=== PATIENT | male | born 1955 | race Two or more races ===

== ENCOUNTER 2016-08-24 11:52 | Emergency (ER) | payer BC ==
[~2016-08-24] VITALS: Ht 167.6 cm; Wt 90.7 kg
[2016-08-24 12:30] VITALS: BP 127/82
[2016-08-24 13:51] LABS: Basophils # (auto) 0 uL; Basophils % (auto) 0.4 % (0.0-2.0); DEFINITIVE VIEW TRANSMISSION; Eosinophils # (auto) 0.1 uL; Eosinophils % (auto) 1.3 % (0.0-7.0); Hematocrit 51.8 % (41.0-53.0); Hemoglobin 17.1 g/dL (13.5-17.5); Lymphocytes # (auto) 1.6 uL; Lymphocytes % (auto) 13.8 % (10.0-50.0); Mean Corpuscular Hemoglobin 26.9 pg (28.0-32.0); Mean Corpuscular Hgb Conc. 32.9 g/dL (32.0-36.0); Mean Corpuscular Volume 81.5 fL (80.0-100.0); Mean Platelet Volume 7.8 fL (7.4-10.4); Monocytes # (auto) 0.4 uL; Neutrophils % (auto) 80.5 % (37.0-80.0); Platelet Count (auto) 431 10^3/uL (140-450); Red Cell Distribution Width 14.1 % (11.6-16.0); White Blood Cell 11.2 10^3/uL (4.4-10.8)
[2016-08-24 14:20] LABS: Albumin 4.1 g/dL (3.4-5.0); BUN/Creatinine Ratio 18.2; Bilirubin, Total 0.6 mg/dL (0.2-1.0); Calcium 8.8 mg/dL (8.5-10.1); Potassium 3.7 mmol/L (3.5-5.1); Total Protein 8.7 g/dL (6.4-8.2)
== END 2016-08-24 14:23 | disposition left against medical advice (07) ==
LOC: ER 11:56
DX: R19.7 Diarrhea, unspecified (principal); R11.10 Vomiting, unspecified; Z53.21 Procedure and treatment not carried out due to patient leaving prior to being seen by health care provider
CPT/HCPCS: 36415; 80053; 82962; 85025; 93005; 99281; J7030

== ENCOUNTER 2019-04-23 22:21 | Inpatient (IN) | payer SELFPAY ==
[~2019-04-23] VITALS: Ht 167.6 cm; Wt 101.0 kg
[2019-04-23 23:18] LABS: Hematocrit 45.7 % (41.0-53.0); Hemoglobin 14.9 g/dL (13.5-17.5); Mean Corpuscular Hemoglobin 27.4 pg (28.0-32.0); Mean Corpuscular Hgb Conc. 32.7 g/dL (32.0-36.0); Mean Corpuscular Volume 83.8 fL (80.0-100.0); Platelet Count (auto) 227 10^3/uL (140-450); Red Blood Cells 5.46 10^6/uL (4.5-5.90); Red Cell Distribution Width 14.5 % (11.8-14.3)
[2019-04-23 23:26] LABS: Basophils % (manual) 0 (0.0-2.0); Blast Cells 0; Eosinophils % (manual) 0 (0-7); Metamyelocytes % 0; Myelocytes % 0; Promyelocytes % 0; Reactive Lymphocytes 0
[2019-04-23] MEDS ORDERED: InsuLIN REG 1unit/0.01ml Soln (100units/ml) IV ONE (23:30)
[2019-04-23] MEDS ORDERED: SODIUM CHLORIDE 0.9% 2,000 ML IV ONE (23:30)
[2019-04-23 23:35] LABS: Chloride 83 mmol/L (98-107); Potassium 4.3 mmol/L (3.5-5.1)
[2019-04-23 23:49] LABS: Alanine Aminotransferase 24 U/L (16-61); Albumin 2.2 g/dL (3.4-5.0); Alkaline Phosphatase 192 U/L (45-117); Aspartate Aminotransferase 30 U/L (15-37); Bilirubin, Total 0.6 mg/dL (0.2-1.0); Blood Urea Nitrogen 62 mg/dL (7-18); GFR African American 52 mL/min; GFR Non-African American 43 mL/min; Magnesium 2.4 mg/dL (1.6-2.6); Total Protein 6.5 g/dL (6.4-8.2)
[2019-04-23 23:54] LABS: Anion Gap 28 (5-15)
[2019-04-23 23:56] LABS: Carbon Dioxide 8 mmol/L (21-32); Glucose 543 mg/dL (74-106); Sodium 119 mmol/L (136-145)
[2019-04-24 00:09] LABS: Lactic Acid w/Reflex 2.3 mmol/L (0.4-2.0)
[2019-04-24] MEDS ORDERED: InsuLIN R (HUMAN) 100 UNITS in SODIUM CHL 0.9% 99 ML IV SCH ×2 (00:10→02:09)
[2019-04-24 00:11] LABS: Band Neutrophils % (manual) 41; Lymphocytes % (manual) 4 (10.0-50.0); Monocytes % (manual) 8 (0-12)
[2019-04-24] MEDS ORDERED: SODIUM BICARBONATE 8.4% INJ 50ML SYRINGE ONE (00:15)
[2019-04-24] MEDS ORDERED: DEXTROSE (50%) 50ML SYRG IV PRN ×3 (00:15→21:45)
[2019-04-24] MEDS ORDERED: SODIUM BICARBONATE 8.4 % INJ 50ML VIAL IV ONE ×2 (00:15→21:30)
[2019-04-24] MEDS ORDERED: InsuLIN REG 1unit/0.01ml Soln (100units/ml) ONE (00:25)
[2019-04-24] MEDS: SODIUM CHLORIDE 0.9% 1,000 ML IV SCH ×2 (00:34→02:10)
[2019-04-24] MEDS: ACCU-CHEK COMFORT CURVE STRIP VI SCH ×16 (00:39→23:20)
[2019-04-24] MEDS ORDERED: LEVOFLOXACIN 750MG 150 ML IV ONE (01:00)
[2019-04-24] MEDS ORDERED: SODIUM CHLORIDE 0.9% 1,000 ML IV SCH ×5 (02:09→08:09)
[2019-04-24] MEDS ORDERED: ALUM & MAG HYDROX-SIMETH LIQ(MAALOX) 30 ML PO PRN (02:15)
[2019-04-24] MEDS ORDERED: TEMAZEPAM 15 MG CAP PO PRN (02:15)
[2019-04-24] MEDS ORDERED: NITROGLYCERIN 0.4 MG SL TAB SL PRN (02:15)
[2019-04-24] MEDS ORDERED: MORPHINE SULF INJ 2 MG/ML SYRINGE 1ML IV PRN (02:15)
[2019-04-24] MEDS ORDERED: DOCUSATE SOD 100 MG CAP PO PRN (02:15)
[2019-04-24] MEDS ORDERED: MORPHINE SULFATE 4 MG/ML SYR/VIAL IV PRN (02:15)
[2019-04-24] MEDS ORDERED: CEFTRIAXONE SODIUM 2 GM in D5W 5% 50 ML IV ONE (02:30)
[2019-04-24] MEDS ORDERED: cefTRIAXone 1GM/50ML D5W 100 ML IV ONE (03:01)
[2019-04-24 03:30] LABS: Basophils # (auto) 0 uL; Basophils % (auto) 0.2 % (0.0-2.0); Eosinophils # (auto) 0.2 uL; Eosinophils % (auto) 1.6 % (0.0-7.0); Hematocrit 42.5 % (41.0-53.0); Hemoglobin 14.6 g/dL (13.5-17.5); Lymphocytes # (auto) 0.3 uL; Lymphocytes % (auto) 2.9 % (10.0-50.0); Mean Corpuscular Hemoglobin 27.6 pg (28.0-32.0); Mean Corpuscular Hgb Conc. 34.2 g/dL (32.0-36.0); Mean Corpuscular Volume 80.5 fL (80.0-100.0); Monocytes # (auto) 0.3 uL; Monocytes % (auto) 2.7 % (0.0-12.0); Neutrophils % (auto) 92.6 % (37.0-80.0); Nucleated Red Blood Cells % 0.3 %; Platelet Count (auto) 174 10^3/uL (140-450); Red Blood Cells 5.28 10^6/uL (4.5-5.90); Red Cell Distribution Width 14.2 % (11.8-14.3); White Blood Cell 9.7 10^3/uL (4.4-10.8)
[2019-04-24 03:31] LABS: BUN/Creatinine Ratio 43.4; Calcium 6.9 mg/dL (8.5-10.1); Magnesium 2.2 mg/dL (1.6-2.6); Phosphorus 2.7 mg/dL (2.5-4.90)
[2019-04-24 03:36] LABS: Potassium 2.9 mmol/L (3.5-5.1)
[2019-04-24] MEDS ORDERED: SOD CHL 0.9%/ KCL 40MEQ 1,000 ML IV SCH (04:00)
[2019-04-24] MEDS ORDERED: POTASSIUM CHLORIDE 20 MEQ, LIDOCAINE 1% (LOCAL ANESTH.) 2 ML in SODIUM CHL 0.9% 100 ML IV ONE (04:00)
[2019-04-24] MEDS: ONDANSETRON HCL 4 MG/2 ML VIAL IV PRN ×2 (04:01→09:31)
[2019-04-24] MEDS ORDERED: POTASSIUM CHL 20MEQ/100ML 100 ML IV ONE ×2 (04:30→23:45)
[2019-04-24 04:44] LABS: Urine Amorphous Crystal FEW /hpf (None Seen); Urine Bacteria FEW /hpf (None Seen); Urine Blood 2+ /uL (Negative); Urine Hyaline Cast FEW /lpf (0 - 2); Urine Mucus FEW (None Seen); Urine Specific Gravity 1.019 (1.001-1.035); Urine WBC 2 /hpf (0 - 3)
[2019-04-24] MEDS ORDERED: SOD CHL 0.9%/ KCL 40MEQ 1,000 ML IV ONE (05:00)
[2019-04-24] MEDS ORDERED: SODIUM CHLORIDE 0.9% 1,000 ML IV ONE ×2 (06:00→08:15)
[2019-04-24 08:27] LABS: Hematocrit 39.2 % (41.0-53.0); Hemoglobin 13.4 g/dL (13.5-17.5); Mean Corpuscular Hemoglobin 27.7 pg (28.0-32.0); Mean Corpuscular Hgb Conc. 34.1 g/dL (32.0-36.0); Mean Corpuscular Volume 81.1 fL (80.0-100.0); Platelet Count (auto) 139 10^3/uL (140-450); Red Blood Cells 4.84 10^6/uL (4.5-5.90); Red Cell Distribution Width 14.2 % (11.8-14.3); White Blood Cell 7.3 10^3/uL (4.4-10.8)
[2019-04-24 08:31] LABS: Basophils % (manual) 0 (0.0-2.0); Blast Cells 0; Eosinophils % (manual) 0 (0-7); Metamyelocytes % 0; Myelocytes % 0; Promyelocytes % 0; Reactive Lymphocytes 0
[2019-04-24 08:42] LABS: BUN/Creatinine Ratio 41.3; Calcium 6.4 mg/dL (8.5-10.1)
[2019-04-24 08:44] LABS: Potassium 2.8 mmol/L (3.5-5.1)
[2019-04-24 08:45] LABS: Lactic Acid w/Reflex 2.8 mmol/L (0.4-2.0)
[2019-04-24 08:50] LABS: Band Neutrophils % (manual) 33; Lymphocytes % (manual) 3 (10.0-50.0); Monocytes % (manual) 9 (0-12)
[2019-04-24] MEDS ORDERED: POTASSIUM EFFERVESENT TAB 25 MEQ GT ONE (09:00)
[2019-04-24] MEDS ORDERED: POTASSIUM PHOSPHATE 44 MEQ in D5W 5% 250 ML IV ONE (09:30)
[2019-04-24] MEDS ORDERED: ENOXAPARIN SOD 40 MG/0.4 ML SYRINGE SC SCH (10:00)
[2019-04-24] MEDS: ENOXAPARIN SOD 40 MG/0.4 ML SYRINGE SC SCH (10:09)
[2019-04-24 10:21] LABS: Alcohol, Urine < 3.0 mg/dL (0-5); Amphetamine Screen, Urine NEGATIVE (NEGATIVE); Barbiturate Scree,Urine NEGATIVE (NEGATIVE); Benzodiazephine Screen, Urine NEGATIVE (NEGATIVE); Cannabinoid Screen, Urine NEGATIVE (NEGATIVE); Cocaine Screen, Urine NEGATIVE (NEGATIVE); Opiate Scree,Urine NEGATIVE (NEGATIVE); Phencyclidine Screen, Urine NEGATIVE (NEGATIVE)
[2019-04-24] MEDS ORDERED: SODIUM CHLORIDE 0.9% 500 ML IV ONE (10:45)
[2019-04-24] MEDS ORDERED: ALBUMIN 25% 100 ML IV ONE (10:45)
[2019-04-24] MEDS ORDERED: VANCOMYCIN PER PHARMACY 0 MG IV SCH (10:45)
[2019-04-24] MEDS: VANCOMYCIN 1GM/250ML 250 ML IV SCH (12:27)
[2019-04-24] MEDS ORDERED: NOREPINEPHRINE 8 MG/250ML KIT 250 ML IV SCH (12:44)
[2019-04-24] MEDS: SOD CHL 0.9%/ KCL 20MEQ 1,000 ML IV SCH ×2 (12:56→18:53)
[2019-04-24] MEDS: PIPERACILLIN-TAZOB 3.375GM 100 ML IV SCH ×2 (14:07→18:15)
[2019-04-24] MEDS ORDERED: FUROSEMIDE 40 MG/4 ML VIAL IV ONE (16:15)
[2019-04-24 16:23] VITALS: BP 129/56
[2019-04-24] MEDS: ALBUTEROL SULF 2.5 MG/0.5ML(0.5%) NEB SOLN NEB SCH ×2 (17:45→22:04)
[2019-04-24] MEDS: IPRATROPIUM BROM 0.5 MG/2.5ML INH SOL NEB SCH ×2 (17:45→22:04)
[2019-04-24 19:00] VITALS: BP 97/56
--- NOTE | 2019-04-24 19:45 | NUR ---
RECEIVED REPORT AND ASSUMED CARE; SEE INTERVENTIONS FOR ASSESSMENT; SEE IV SPREADSHEET FOR GTTS; VS ARE WNL; PT. IS VERY ANXIOUS AND RESTLESS- FAMILY STATES HE IS THIS WAY AT HOME; WILL CONT. TO MONITOR.
[2019-04-24 20:00] VITALS: BP 122/73
--- NOTE | 2019-04-24 20:13 | NUR ---
Respiratory note: ABG RESULTS REPORTED TO CLARIBEL RUBY, NO NEW RESPIRATORY ORDERS GIVEN AT THIS TIME.
[2019-04-24 21:00] VITALS: BP 107/64
--- NOTE | 2019-04-24 21:00 | NUR ---
PARTIAL LINEN CHANGE; PT. CONT. WITH RESTLESSNESS; WILL MONITOR PT.
[2019-04-24] MEDS: InsuLIN R (HUMAN) 100 UNITS in SODIUM CHL 0.9% 99 ML IV SCH (21:29)
[2019-04-24 21:48] LABS: Hematocrit 36.5 % (41.0-53.0); Hemoglobin 12.5 g/dL (13.5-17.5); Mean Corpuscular Hemoglobin 27.6 pg (28.0-32.0); Mean Corpuscular Hgb Conc. 34.3 g/dL (32.0-36.0); Mean Corpuscular Volume 80.5 fL (80.0-100.0); Platelet Count (auto) 119 10^3/uL (140-450); Red Blood Cells 4.53 10^6/uL (4.5-5.90); Red Cell Distribution Width 14.6 % (11.8-14.3); White Blood Cell 14.5 10^3/uL (4.4-10.8)
[2019-04-24] MEDS: FAMOTIDINE (10MG/ML) 2ML VL IV SCH (21:49)
[2019-04-24 21:59] LABS: Basophils % (manual) 0 (0.0-2.0); Blast Cells 0; Eosinophils % (manual) 0 (0-7); Metamyelocytes % 0; Myelocytes % 0; Promyelocytes % 0; Reactive Lymphocytes 0
[2019-04-24 22:00] VITALS: BP 102/54
[2019-04-24 22:00] LABS: Albumin 2.1 g/dL (3.4-5.0); Anion Gap 16 (5-15); Calcium 6.9 mg/dL (8.5-10.1); Carbon Dioxide 15 mmol/L (21-32); Chloride 103 mmol/L (98-107); Glucose 213 mg/dL (74-106); Potassium 3.3 mmol/L (3.5-5.1); Sodium 134 mmol/L (136-145)
[2019-04-24 22:02] LABS: Lactic Acid w/Reflex 2.2 mmol/L (0.4-2.0)
[2019-04-24 22:05] LABS: Alanine Aminotransferase 24 U/L (16-61); BUN/Creatinine Ratio 33.7; Bilirubin, Total 0.6 mg/dL (0.2-1.0); Blood Urea Nitrogen 35 mg/dL (7-18); GFR African American 92 mL/min; GFR Non-African American 76 mL/min; Total Protein 5.7 g/dL (6.4-8.2)
[2019-04-24 22:12] LABS: Alkaline Phosphatase 155 U/L (45-117); Aspartate Aminotransferase 45 U/L (15-37)
--- NOTE | 2019-04-24 22:34 | NUR ---
Respiratory note: TAILERCPA ARIAS NOTIFIED OF ABG RESULTS, NO NEW RESPIRATORY ORDERS GIVEN AT THIS TIME. WILL CONTINUE TO MONITOR.
[2019-04-24 23:00] VITALS: BP 114/54
[2019-04-24 23:39] LABS: Band Neutrophils % (manual) 8; Lymphocytes % (manual) 3 (10.0-50.0); Monocytes % (manual) 5 (0-12)
[2019-04-25] VITALS (9 sets, daily range): BP systolic 103–126; BP diastolic 61–81
[2019-04-25] MEDS: ACCU-CHEK COMFORT CURVE STRIP VI SCH ×9 (00:20→22:51)
[2019-04-25] MEDS: InsuLIN R (HUMAN) 100 UNITS in SODIUM CHL 0.9% 99 ML IV SCH (00:21)
[2019-04-25] MEDS: MORPHINE SULF INJ 2 MG/ML SYRINGE 1ML IV PRN ×3 (01:11→16:00)
[2019-04-25] MEDS: PIPERACILLIN-TAZOB 3.375GM 100 ML IV SCH ×2 (01:15→06:38)
[2019-04-25] MEDS: ONDANSETRON HCL 4 MG/2 ML VIAL IV PRN (01:40)
[2019-04-25] MEDS: ALBUTEROL SULF 2.5 MG/0.5ML(0.5%) NEB SOLN NEB SCH ×4 (02:06→18:51)
[2019-04-25] MEDS: IPRATROPIUM BROM 0.5 MG/2.5ML INH SOL NEB SCH ×4 (02:06→18:51)
--- NOTE | 2019-04-25 03:00 | NUR ---
PT. PULLED OUT PIV FROM LT. HAND-CATHETER INTACT; CHANGED ALL LINEN; PT. TOLERATED WELL; PT. AGGRESSIVE AND WANTING TO BE DISCHARGED HOME; RE-ASSURED PT. TO WHY HE WAS HERE AND PT. SEEMS TO BE A LITTLE MORE CALM; WILL CONT. TO MONITOR.
[2019-04-25 06:26] LABS: Hematocrit 34.3 % (41.0-53.0); Hemoglobin 11.8 g/dL (13.5-17.5); Mean Corpuscular Hemoglobin 27.5 pg (28.0-32.0); Mean Corpuscular Hgb Conc. 34.3 g/dL (32.0-36.0); Mean Corpuscular Volume 80.2 fL (80.0-100.0); Platelet Count (auto) 92 10^3/uL (140-450); Red Blood Cells 4.28 10^6/uL (4.5-5.90); Red Cell Distribution Width 14.7 % (11.8-14.3); White Blood Cell 12.1 10^3/uL (4.4-10.8)
[2019-04-25 06:27] LABS: Basophils % (manual) 0 (0.0-2.0); Blast Cells 0; Eosinophils % (manual) 0 (0-7); Metamyelocytes % 0; Myelocytes % 0; Promyelocytes % 0; Reactive Lymphocytes 0
[2019-04-25 06:43] LABS: INR 1.04 (0.9-1.15)
[2019-04-25 07:04] LABS: Albumin 1.8 g/dL (3.4-5.0); BUN/Creatinine Ratio 36.1; Calcium 6.8 mg/dL (8.5-10.1); Magnesium 1.9 mg/dL (1.6-2.6)
[2019-04-25 07:08] LABS: Bilirubin, Total 0.6 mg/dL (0.2-1.0); Phosphorus 2.3 mg/dL (2.5-4.90); Total Protein 5.4 g/dL (6.4-8.2)
[2019-04-25 07:10] LABS: Potassium 2.8 mmol/L (3.5-5.1)
[2019-04-25] MEDS: SOD CHL 0.9%/ KCL 20MEQ 1,000 ML IV SCH ×2 (07:37→08:14)
[2019-04-25 07:45] LABS: Band Neutrophils % (manual) 18; Lymphocytes % (manual) 4 (10.0-50.0); Monocytes % (manual) 12 (0-12)
[2019-04-25] MEDS ORDERED: POTASSIUM CHL 20 Meq TABLET PO ONE ×2 (07:45→09:00)
[2019-04-25] MEDS ORDERED: DEXTROSE (50%) 50ML SYRG IV PRN ×2 (07:45→09:00)
[2019-04-25] MEDS ORDERED: ACCU-CHEK COMFORT CURVE STRIP VI SCH (08:00)
[2019-04-25] MEDS ORDERED: InsuLIN REG 1unit/0.01ml Soln (100units/ml) SC SCH (08:00)
--- NOTE | 2019-04-25 08:36 | NUR ---
Report Received Received report from Emergency Department Nurse.
[2019-04-25] MEDS ORDERED: INSULIN LANTUS (GLARGINE) 1 /0.01ml (100units/ml) SC ONE ×2 (09:00→10:00)
[2019-04-25] MEDS ORDERED: POTASSIUM PHOSPHATE 44 MEQ in D5W 5% 250 ML IV ONE (09:00)
--- NOTE | 2019-04-25 09:01 | NUR ---
MS admit from ER BLAZE BAILEY admitted to tele after SBAR received. Patient oriented to CATHI MANLEY, RN primary RN,Room 278 Bed B, and unit policies regarding patient care and visiting hours. Patient Alert and orientedx4, bed in lowest position, call lights in place, patient informed on plan of care and verbalizes understanding.
[2019-04-25] MEDS: ENOXAPARIN SOD 40 MG/0.4 ML SYRINGE SC SCH (10:14)
[2019-04-25] MEDS: FAMOTIDINE (10MG/ML) 2ML VL IV SCH ×2 (10:14→22:50)
[2019-04-25] MEDS ORDERED: LEVOFLOXACIN 500MG 100 ML IV ONE (10:45)
[2019-04-25] MEDS: InsuLIN REG 1unit/0.01ml Soln (100units/ml) SC SCH ×3 (11:52→22:51)
[2019-04-25] MEDS: VANCOMYCIN 1GM/250ML 250 ML IV SCH ×3 (12:00→23:13)
--- NOTE | 2019-04-25 12:10 | NUR ---
WOUND CARE NOTE: Wound care consult received from Dr Perez for diabetic foot ulcer. Patient is a 63yo male admitted for DKA. Patient with a history of diabetes. Patient is alert and denies pain. Patient seen with bedside RNAmelie. Reviewed photographs taken on admission. Patient states he has had wound for approximately 2 weeks. Patient is pending a podiatry consult with Dr Jerome. Patient with a open calloused blister measuring 2x2cm with purulent drainage. Culture taken. RECOMMENDATIONS: Dietary Consult; Podiatry consult; Nursing to cleanse wound with NS, pat dry, cover with telfa gauze and secure with tape, change daily/PRN; further wound care orders to be directed by podiatry; wound care team to follow. Addendum: 04/25/19 at 1807 by DEXTER CARLOS RN Amended: Links added.
--- NOTE | 2019-04-25 13:00 | NUR ---
Home medications Spoke with son. Daughter is to bring in a list of home medications.
--- NOTE | 2019-04-25 13:31 | NUR ---
at bedside Dr. Jerome at bedside.
--- NOTE | 2019-04-25 13:35 | NUR ---
Debridement Dr. Jerome is at bedside performing debridement on patient's right great toe.
--- NOTE | 2019-04-25 16:06 | NUR ---
Home Medications Daughter does not have home medication list. Patient states it it in his wallet, however, daughter has the wallet and the list is not there.
[2019-04-25] MEDS ORDERED: AZIL40TA2 PO (16:31)
[2019-04-25] MEDS ORDERED: ERTU15TA PO (16:31)
[2019-04-25] MEDS ORDERED: METF500T PO (16:38)
[2019-04-25] MEDS ORDERED: PIO30T PO (16:38)
[2019-04-25] MEDS ORDERED: ATOR20TA PO (16:38)
--- NOTE | 2019-04-25 16:41 | NUR ---
Home Medications Daughter called patient's dr. office. Medications updated.
--- NOTE | 2019-04-25 16:59 | NUR ---
Call to [employer] Operator Call to Charan orthopedic podiatrist, at this time regarding order for patient's order for surgical shoe. Charan states that the surgical shoe is available through materials.
--- NOTE | 2019-04-25 17:01 | NUR ---
Call to Materials Surgical shoe will be delivered.
--- NOTE | 2019-04-25 18:29 | NUR ---
Surgical Shoe Applied surgical shoe at this time. No distress noted.
--- NOTE | 2019-04-25 18:37 | NUR ---
Daughter's Information Charlene
--- NOTE | 2019-04-25 19:15 | NUR ---
Closing Shift Note Patient resting in bed. Daughter at bedside. Sitter at bedside. Report given. Will endorse care to the night stocker RN.
--- NOTE | 2019-04-25 19:35 | NUR ---
Opening Shift Note Assumed care of patient. Patient was asleep but arousible to name. Family is present at bedside. No S/S of distress/SOB or pain. Instructed on POC and to call for assist PRN, will continue to monitor for changes Q1hr and PRN.
[2019-04-25] MEDS: INSULIN LANTUS (GLARGINE) 1 /0.01ml (100units/ml) SC SCH (22:51)
[2019-04-26] MEDS: IPRATROPIUM BROM 0.5 MG/2.5ML INH SOL NEB SCH ×3 (00:21→11:33)
[2019-04-26] MEDS: ALBUTEROL SULF 2.5 MG/0.5ML(0.5%) NEB SOLN NEB SCH ×3 (00:21→11:33)
[2019-04-26] MEDS: MORPHINE SULF INJ 2 MG/ML SYRINGE 1ML IV PRN ×3 (01:54→18:00)
[2019-04-26 05:00] VITALS: BP 138/80
--- NOTE | 2019-04-26 05:15 | NUR ---
WOUND CARE NOTE Wound was cleaned and dressing was changed per wound care instructions. Minimal drainage observed. Patient tolerated dressing change well.
[2019-04-26 06:32] LABS: Hematocrit 35.4 % (41.0-53.0); Hemoglobin 12.3 g/dL (13.5-17.5); Mean Corpuscular Hgb Conc. 34.7 g/dL (32.0-36.0); Mean Corpuscular Volume 80.6 fL (80.0-100.0); Platelet Count (auto) 86 10^3/uL (140-450); Red Cell Distribution Width 14.8 % (11.8-14.3); White Blood Cell 10.2 10^3/uL (4.4-10.8)
[2019-04-26 06:43] LABS: BUN/Creatinine Ratio 33.9; Calcium 7.5 mg/dL (8.5-10.1); Potassium 3.3 mmol/L (3.5-5.1)
[2019-04-26 06:44] LABS: Basophils % (manual) 0 (0.0-2.0); Blast Cells 0; Eosinophils % (manual) 0 (0-7); Metamyelocytes % 0; Myelocytes % 0; Promyelocytes % 0; Reactive Lymphocytes 0
[2019-04-26] MEDS: ACCU-CHEK COMFORT CURVE STRIP VI SCH ×4 (07:00→22:23)
[2019-04-26] MEDS: InsuLIN REG 1unit/0.01ml Soln (100units/ml) SC SCH ×4 (07:00→22:23)
--- NOTE | 2019-04-26 07:21 | NUR ---
CLOSING NOTE Care has been endorse to Day shift RN.
--- NOTE | 2019-04-26 07:30 | NUR ---
Opening Shift Note Assuming care of patient at this time. Patient is awake and alert, with periods of confusion. Patient states he is uncomfortable in bed. Bed is locked and lowered with side rails up x2. Patient shows no signs or symptoms of shortness of breath. Instructed patient on the plan of care for today and to call for assistance as needed. Call light within reach. Sitter at bedside for safety.
[2019-04-26 07:31] LABS: Band Neutrophils % (manual) 7; Lymphocytes % (manual) 9 (10.0-50.0); Monocytes % (manual) 6 (0-12)
--- NOTE | 2019-04-26 08:02 | NUR ---
Call to Daughter Call to Daughter at this time. Patient wants her to come pick her up. Patient wants to sign out AMA. Daughter states, "He is not leaving until the doctor sees him and discharges him. " Daughter continues to state that she will stop by after she drops her son off at school. Notified patient.
[2019-04-26 09:00] VITALS: BP 134/79
--- NOTE | 2019-04-26 09:05 | NUR ---
Patient Behavior Patient is arguing with his son. Patient is yelling for son to take him home. Patient states, "Get me the fuck out of here." Son explains to Dad that he cannot go home unless the doctor sees him and he is discharged. Patient states, "Shut the fuck up." Will notify MD of patient's behavior.
--- NOTE | 2019-04-26 09:07 | NUR ---
Page to Dr. Perez Page to Dr. Perez at this time to notify of patient's condition. Awaiting callback.
--- NOTE | 2019-04-26 09:14 | NUR ---
Call from Dr. Chris Perez is aware of patient's behavior. New orders to be placed.
[2019-04-26] MEDS ORDERED: LORazepam 2MG/ML-1ML VIAL IV ONE (09:15)
[2019-04-26] MEDS: HYDROcodone-ACET 5/325MG TAB PO PRN ×2 (09:30→19:42)
[2019-04-26] MEDS: FAMOTIDINE (10MG/ML) 2ML VL IV SCH (09:30)
[2019-04-26] MEDS: LEVOFLOXACIN 500MG 100 ML IV SCH (09:31)
[2019-04-26] MEDS: ENOXAPARIN SOD 40 MG/0.4 ML SYRINGE SC SCH (09:31)
[2019-04-26] MEDS: VANCOMYCIN 1GM/250ML 250 ML IV SCH ×2 (12:14→22:58)
--- NOTE | 2019-04-26 12:25 | NUR ---
Arguello catheter dc'd Order to discontinue argulelo catheter. Arguello dc'd with clean technique following deflation of balloon. Patient tolerated well with no complaints of pain. Continue care.
--- NOTE | 2019-04-26 12:45 | NUR ---
Call from Radiology Radiology called at this time to verify patient's xray orders. Spoke with Dr. Perez regarding order. Will input new orders.
--- NOTE | 2019-04-26 12:49 | NUR ---
Refusing to wear boot Patient has been refusing to wear boot. Patient continues to remove boot despite education. Patient has also removed dressing to r. toe. Dressing has been reinforced multiple times throughout the morning and early afternoon.
[2019-04-26 13:00] VITALS: BP 129/69
--- NOTE | 2019-04-26 16:14 | NUR ---
Assessment Pt is a 63 yr old confused and disoriented male. Pt's son Candelario was bedside and answered questions. Prior to admit, pt lives at home with and family. Pt son, Candelario, is pt's caregiver and emergency contact at [phone]. Prior to admit, pt was ambulatory and independent with ADL's. Candelario stated that pt has uncontrolled diabetes and won't take his meds which caused the hospital admit. Candelario stated that he was now going to regulate medications to ensure that pt is taking them. Pt receives income through Pension. Pt's son is unsure of any help needed. pt's son will transport pt home upon medical clearance. Addendum: 04/26/19 at 1618 by ANGY GALLO Amended: Links added.
[2019-04-26 17:00] VITALS: BP 125/75
--- NOTE | 2019-04-26 18:16 | NUR ---
Dressing Change Patient's dressing changed to r. foot at this time according to doctor's orders. No distress noted. Patient continues to wear surgical boot.
--- NOTE | 2019-04-26 19:10 | NUR ---
Closing Shift Note Patient resting in bed with eyes closed. No distress noted. Daughter at bedside. Family at bedside. Report given. Will endorse care to the shift production associate RN.
--- NOTE | 2019-04-26 19:40 | NUR ---
Opening Shift Note Assumed care of patient, awake and alert. No S/S of distress/SOB. The patient c/o severe back pain. Daughter is present at bedside. Instructed on POC with patient and daughter. Also instructed to call for assistance PRN, will continue to monitor for changes Q1hr and PRN.
[2019-04-26 22:00] VITALS: BP 90/58
[2019-04-26] MEDS: DAKINS HALF STR 0.25% (NaHypochlorite) 473 ML TOPICAL SOL TOP SCH (22:23)
[2019-04-26] MEDS: INSULIN LANTUS (GLARGINE) 1 /0.01ml (100units/ml) SC SCH (22:23)
[2019-04-27] MEDS: MORPHINE SULF INJ 2 MG/ML SYRINGE 1ML IV PRN ×6 (01:22→23:24)
[2019-04-27] MEDS: HYDROcodone-ACET 5/325MG TAB PO PRN ×3 (02:31→20:17)
[2019-04-27 04:55] VITALS: BP 110/70
--- NOTE | 2019-04-27 05:25 | NUR ---
DRESSING CHANGE Dressing has been changed per MD instructions. Minimal drainage noted. Patient tolerated dressing change well.
--- NOTE | 2019-04-27 05:25 | NUR ---
Patient refusing to use surgical boot. Patient has been educated about the purpose and need of wearing the surgical boot.
[2019-04-27] MEDS: ACCU-CHEK COMFORT CURVE STRIP VI SCH ×4 (06:43→23:58)
[2019-04-27] MEDS: InsuLIN REG 1unit/0.01ml Soln (100units/ml) SC SCH ×4 (06:43→23:57)
--- NOTE | 2019-04-27 07:25 | NUR ---
Opening Shift Note Assumed care of patient, awake and alert x3, with periods of confusion. No S/S of distress or SOB, patient states he is uncomfortable and when can he have pain medications, informed him that he received pain medication a couple of hours ago and will medicate him when it is due per MD orders. Updated on POC and instructed to call for assistance as needed, patient verbalized understanding. Bed locked in lowest position, side rails up x2, call light within reach. Sitter at bedside for safety. Will continue to monitor for changes Q1hr and PRN.
[2019-04-27 08:55] VITALS: BP 127/82
[2019-04-27] MEDS: LEVOFLOXACIN 500MG 100 ML IV SCH (09:35)
[2019-04-27] MEDS: ENOXAPARIN SOD 40 MG/0.4 ML SYRINGE SC SCH (09:36)
[2019-04-27] MEDS: DAKINS HALF STR 0.25% (NaHypochlorite) 473 ML TOPICAL SOL TOP SCH ×2 (09:37→23:58)
--- NOTE | 2019-04-27 10:00 | NUR ---
Dressing Change Patient's dressing changed to right big toe at this time per doctor's orders. Patient tolerated well
[2019-04-27] MEDS: VANCOMYCIN 1GM/250ML 250 ML IV SCH ×2 (11:05→23:23)
[2019-04-27 12:59] VITALS: BP 125/75
[2019-04-27 12:59] LABS: Hematocrit 33.8 % (41.0-53.0); Hemoglobin 11.6 g/dL (13.5-17.5); Mean Corpuscular Hemoglobin 27.6 pg (28.0-32.0); Mean Corpuscular Hgb Conc. 34.1 g/dL (32.0-36.0); Mean Corpuscular Volume 80.8 fL (80.0-100.0); Platelet Count (auto) 89 10^3/uL (140-450); Red Blood Cells 4.19 10^6/uL (4.5-5.90); White Blood Cell 11.9 10^3/uL (4.4-10.8)
[2019-04-27 13:01] LABS: Albumin 1.7 g/dL (3.4-5.0); BUN/Creatinine Ratio 34.7; Calcium 7.6 mg/dL (8.5-10.1); Magnesium 2.1 mg/dL (1.6-2.6); Potassium 3.1 mmol/L (3.5-5.1)
[2019-04-27 13:05] LABS: Bilirubin, Total 0.5 mg/dL (0.2-1.0); Total Protein 5.4 g/dL (6.4-8.2)
[2019-04-27 13:09] LABS: Basophils % (manual) 0 (0.0-2.0); Blast Cells 0; Promyelocytes % 0; Reactive Lymphocytes 0
[2019-04-27 13:37] LABS: Band Neutrophils % (manual) 3; Eosinophils % (manual) 3 (0-7); Lymphocytes % (manual) 6 (10.0-50.0); Metamyelocytes % 2; Monocytes % (manual) 12 (0-12); Myelocytes % 1
--- NOTE | 2019-04-27 14:51 | NUR ---
Central Line Dressing Change Central line dressing change done with a sterile technique. Cleansed with chloraprep scrub. Bio patch applied. Occlusive dressing applied. Patient tolerated well.
--- NOTE | 2019-04-27 14:54 | NUR ---
Patient removed dressing and refuses to wear boot. Patient removed new dressing to right foot. Dressing was reinforced multiple times, and patient continues to remove dressing. Patient also refuses to wear boot, despite education.
--- NOTE | 2019-04-27 15:09 | NUR ---
NUTRITION CONSULT/ASSESSMENT NOTES Please refer to link notes of nutrition screen form filed under the intervention section of the plan of care for further details. Est. Needs: 1450 kcal to 1950 kcal (15-20 kcal/kgBW), 78 gms to 90 gms pro (0.8-1.0 gms/kgBW). Will continue to monitor pertinent labs and reassess nutrient need prn Thank you for this consult. Addendum: 04/27/19 at [address] Amended: Links added.
[2019-04-27 17:05] VITALS: BP 98/73
--- NOTE | 2019-04-27 18:43 | NUR ---
Patient Rounds Patient sitting up at bedside eating dinner. No S/S of distress or SOB. Family and sitter at bedside. Care will be endorsed to shift mechanic RN.
--- NOTE | 2019-04-27 19:30 | NUR ---
Opening Shift Note Assumed care of patient, awake and alert. No S/S of distress/SOB. Family at bedside. Sitter at bedside. Continues in a lot of pain 10/10 to back, will medicate per orders Instructed on POC and to call for assist PRN, will continue to monitor for changes Q1hr and PRN.
[2019-04-27 20:00] VITALS: BP 118/71
[2019-04-27 22:00] VITALS: BP 102/66
[2019-04-27] MEDS: INSULIN LANTUS (GLARGINE) 1 /0.01ml (100units/ml) SC SCH (23:57)
[2019-04-28 05:00] VITALS: BP 130/87
[2019-04-28] MEDS: InsuLIN REG 1unit/0.01ml Soln (100units/ml) SC SCH ×2 (06:10→11:06)
[2019-04-28] MEDS: ACCU-CHEK COMFORT CURVE STRIP VI SCH ×2 (06:11→11:07)
[2019-04-28] MEDS: MORPHINE SULF INJ 2 MG/ML SYRINGE 1ML IV PRN (06:11)
[2019-04-28] MEDS: HYDROcodone-ACET 5/325MG TAB PO PRN (06:32)
--- NOTE | 2019-04-28 07:00 | NUR ---
Changed Dressing to right great toe per orders. Pt drowsy at this time. refusing boot at this time. No distress noted. BM x1 last night
--- NOTE | 2019-04-28 07:05 | NUR ---
Opening Shift Note Assumed care of patient, awake and alert. No S/S of distress/SOB or pain. Instructed on POC and to call for assist PRN, will continue to monitor for changes Q1hr and PRN. Bed set in lowest locked position.
[2019-04-28 08:05] VITALS: BP 130/87
[2019-04-28] MEDS: ENOXAPARIN SOD 40 MG/0.4 ML SYRINGE SC SCH (10:00)
[2019-04-28] MEDS ORDERED: POTASSIUM CHL 20 Meq TABLET PO ONE (10:00)
[2019-04-28] MEDS ORDERED: LEVO-28 PO (10:09)
[2019-04-28] MEDS ORDERED: NIAC500T13 PO (10:09)
[2019-04-28] MEDS ORDERED: DAKI0.25 TOP (10:09)
[2019-04-28] MEDS ORDERED: METF-490 PO (10:11)
[2019-04-28] MEDS ORDERED: INSLANTI SC (10:11)
[2019-04-28] MEDS: LEVOFLOXACIN 500MG 100 ML IV SCH (10:43)
[2019-04-28] MEDS: DAKINS HALF STR 0.25% (NaHypochlorite) 473 ML TOPICAL SOL TOP SCH (10:43)
[2019-04-28 10:45] VITALS: BP 118/71
--- NOTE | 2019-04-28 13:01 | NUR ---
Discharge instructions given as ordered. Encourage to follow up with primary care provider as instructed. All questions and concerns addressed. Patient/family verbalized understanding. IV removed with catheter intact. Central line removed with catheter intact. Wound photos taken. Dressing change completed to right great toe, provided patient and family teaching of wound care, pt and family verbalized understanding. Telemetry unit returned to ICU. Patient taken to vehicle via wheelchair with all personal belongings, accompanied by staff and family member. No distress noted at time of departure.
== END 2019-04-28 13:00 | disposition home or self-care (01) | DRG 853 ==
LOC: EDBD 22:21 → ER 22:21 → EDUNIT# 22:21 → TELE 22:22 → TELE-WESTW 04-25 09:11
PROVIDERS: ADMIT Hospitalist; ATTEND Internal Medicine
PROC: 02HV33Z Insertion of Infusion Device into Superior Vena Cava, Percutaneous Approach (ICD-10-PCS; 2019-04-23)
PROC: 0JBQ0ZZ Excision of Right Foot Subcutaneous Tissue and Fascia, Open Approach (ICD-10-PCS; principal; 2019-04-25)
DX: A40.1 Sepsis due to streptococcus, group B (principal); E11.10 Type 2 diabetes mellitus with ketoacidosis without coma; R65.21 Severe sepsis with septic shock; N17.0 Acute kidney failure with tubular necrosis; G93.41 Metabolic encephalopathy; E43 Unspecified severe protein-calorie malnutrition; E87.3 Alkalosis; I10 Essential (primary) hypertension; K21.9 Gastro-esophageal reflux disease without esophagitis; E78.00 Pure hypercholesterolemia, unspecified; F17.210 Nicotine dependence, cigarettes, uncomplicated; E78.5 Hyperlipidemia, unspecified; E66.9 Obesity, unspecified; B96.20 Unspecified Escherichia coli [E. coli] as the cause of diseases classified elsewhere; E11.21 Type 2 diabetes mellitus with diabetic nephropathy; G89.29 Other chronic pain; M54.9 Dorsalgia, unspecified; S91.301A Unspecified open wound, right foot, initial encounter; X58.XXXA Exposure to other specified factors, initial encounter; Z90.49 Acquired absence of other specified parts of digestive tract; Z91.14 Patient's other noncompliance with medication regimen; Z83.3 Family history of diabetes mellitus; Z68.35 Body mass index [BMI] 35.0-35.9, adult; Y93.89 Activity, other specified; Y92.89 Other specified places as the place of occurrence of the external cause; Y99.8 Other external cause status
CPT/HCPCS: 36415; 36600; 71045; 72070; 72100; 73620; 80048; 80053; 80061; 80202; 80307; 81001; 82010; 82140; 82550; 82805; 82962; 83036; 83605; 83735; 83930; 84100; 84132; 84443; 84484; 85007; 85025; 85027; 85610; 85730; 87040; 87077; 87186; 87205; 93005; 94640; G0378; J0696; J1815; J1956; J2001; J2405; J2543; J3480; J3490; J7060; P9047

== ENCOUNTER 2019-05-13 15:00 | Inpatient (IN) | payer SELFPAY ==
[~2019-05-13] VITALS: Ht 167.6 cm; Wt 92.5 kg
[~2019-05-13 15:00] MED LIST: ATOR20TA PO; AZIL40TA2 PO; DAKI0.25 TOP; ERTU15TA PO; INSLANTI SC; LEVO-28 PO; METF-490 PO; NIAC500T13 PO; PIO30T PO
[2019-05-13] MEDS ORDERED: SODIUM CHLORIDE 0.9% 3,000 ML IV ONE (16:00)
[2019-05-13] MEDS ORDERED: PIPERACILLIN-TAZOB 3.375GM 100 ML IV ONE (16:00)
[2019-05-13] MEDS ORDERED: SODIUM CHLORIDE 0.9% 1,000 ML IV ONE ×2 (16:11)
[2019-05-13 16:39] LABS: INR 1.12 (0.9-1.15)
[2019-05-13 16:40] LABS: Hemoglobin 9.8 g/dL (13.5-17.5)
[2019-05-13 16:42] LABS: Hematocrit 30.4 % (41.0-53.0); Mean Corpuscular Hemoglobin 25.9 pg (28.0-32.0); Mean Corpuscular Hgb Conc. 32.4 g/dL (32.0-36.0); Mean Corpuscular Volume 79.8 fL (80.0-100.0); Platelet Count (auto) 568 10^3/uL (140-450); Red Cell Distribution Width 15.1 % (11.8-14.3)
[2019-05-13 16:47] LABS: Band Neutrophils % (manual) 0; Basophils % (manual) 0 (0.0-2.0); Blast Cells 0; Reactive Lymphocytes 0
[2019-05-13 16:57] LABS: Eosinophils % (manual) 3 (0-7); Lymphocytes % (manual) 6 (10.0-50.0); Metamyelocytes % 1; Monocytes % (manual) 2 (0-12); Myelocytes % 1; Promyelocytes % 1
[2019-05-13 17:21] LABS: Albumin 1.6 g/dL (3.4-5.0); Anion Gap 14 (5-15); Blood Urea Nitrogen 69 mg/dL (7-18); Carbon Dioxide 21 mmol/L (21-32); Chloride 95 mmol/L (98-107); GFR African American 9 mL/min; GFR Non-African American 8 mL/min; Glucose 175 mg/dL (74-106); Potassium 5.3 mmol/L (3.5-5.1); Sodium 130 mmol/L (136-145)
[2019-05-13 17:37] LABS: Lactic Acid w/Reflex 3.1 mmol/L (0.4-2.0)
[2019-05-13 17:37] LABS: Alanine Aminotransferase 17 U/L (16-61); Alkaline Phosphatase 93 U/L (45-117); Aspartate Aminotransferase 19 U/L (15-37); Bilirubin, Total 0.7 mg/dL (0.2-1.0); Total Protein 6.3 g/dL (6.4-8.2)
[2019-05-13] MEDS ORDERED: PROMETHAZINE HCL 25 MG/ML 1ML IV PRN (18:00)
[2019-05-13] MEDS ORDERED: LACTULOSE 20Gm/30ML SOLN PO PRN (18:00)
[2019-05-13] MEDS ORDERED: LORazepam 0.5 MG TAB PO PRN (18:00)
[2019-05-13] MEDS ORDERED: DEXTROSE (50%) 50ML SYRG IV PRN (18:00)
[2019-05-13] MEDS ORDERED: NITROGLYCERIN 0.4 MG SL TAB SL PRN (18:00)
[2019-05-13] MEDS ORDERED: MORPHINE SULF INJ 2 MG/ML SYRINGE 1ML IV PRN (18:00)
[2019-05-13] MEDS: SODIUM CHLORIDE 0.9% 1,000 ML IV SCH (18:20)
[2019-05-13 18:28] LABS: Lactic Acid w/Reflex 2.5 mmol/L (0.4-2.0)
[2019-05-13 19:13] LABS: BUN/Creatinine Ratio 9.8; Calcium 6.4 mg/dL (8.5-10.1); Potassium 5.1 mmol/L (3.5-5.1)
[2019-05-13] MEDS: traMADol HCL 50 MG TAB PO PRN (21:44)
[2019-05-13] MEDS: InsuLIN REG 1unit/0.01ml Soln (100units/ml) SC SCH (22:00)
[2019-05-13] MEDS: CLINDAMYCIN 600MG IV 50 ML IV SCH (22:06)
[2019-05-13] MEDS: ACCU-CHEK COMFORT CURVE STRIP VI SCH (22:10)
[2019-05-13 23:00] VITALS: BP 118/79
[2019-05-13 23:54] VITALS: BP 149/83
[2019-05-14] VITALS (29 sets, daily range): BP systolic 70–131; BP diastolic 42–74
[2019-05-14] MEDS: SODIUM CHLORIDE 0.9% 1,000 ML IV SCH (04:14)
[2019-05-14] MEDS: CLINDAMYCIN 600MG IV 50 ML IV SCH ×3 (06:00→21:38)
[2019-05-14 06:06] LABS: Hemoglobin 9.1 g/dL (13.5-17.5)
[2019-05-14 06:12] LABS: Hematocrit 27.6 % (41.0-53.0); Mean Corpuscular Hemoglobin 26.2 pg (28.0-32.0); Mean Corpuscular Hgb Conc. 32.9 g/dL (32.0-36.0); Mean Corpuscular Volume 79.6 fL (80.0-100.0); Platelet Count (auto) 486 10^3/uL (140-450); Red Blood Cells 3.47 10^6/uL (4.5-5.90); Red Cell Distribution Width 14.9 % (11.8-14.3); White Blood Cell 12.8 10^3/uL (4.4-10.8)
[2019-05-14 06:24] LABS: Band Neutrophils % (manual) 0; Basophils % (manual) 0 (0.0-2.0); Blast Cells 0; Metamyelocytes % 0; Myelocytes % 0; Promyelocytes % 0; Reactive Lymphocytes 0
[2019-05-14 06:35] LABS: Potassium 5.1 mmol/L (3.5-5.1)
[2019-05-14] MEDS: InsuLIN REG 1unit/0.01ml Soln (100units/ml) SC SCH ×4 (06:43→21:51)
[2019-05-14 06:44] LABS: Albumin 1.5 g/dL (3.4-5.0); BUN/Creatinine Ratio 9.8; Calcium 6.6 mg/dL (8.5-10.1)
[2019-05-14] MEDS: ACCU-CHEK COMFORT CURVE STRIP VI SCH ×4 (06:44→21:51)
[2019-05-14 06:48] LABS: Bilirubin, Total 0.7 mg/dL (0.2-1.0); Total Protein 5.9 g/dL (6.4-8.2)
[2019-05-14 07:16] LABS: Eosinophils % (manual) 3 (0-7); Lymphocytes % (manual) 6 (10.0-50.0); Monocytes % (manual) 5 (0-12)
[2019-05-14 07:54] LABS: Urine Bacteria MOD /hpf (None Seen); Urine Blood 3+ /uL (Negative); Urine Budding Yeast LOADED /hpf (None Seen); Urine Specific Gravity 1.013 (1.001-1.035); Urine WBC 1789 /hpf (0 - 3); Urine WBC Clumps PRESENT /hpf (None Seen)
--- NOTE | 2019-05-14 08:00 | NUR ---
Opening Shift Note Assumed care of patient, awake and alert. Patient A&Ox4. Patient on the monitor. Patient on room air saturation at 94%. IV Left wrist 20G and right forearm 20G both saline locked, both IV's patent, clean, dry, and intact. Lyle to gravity. No S/S of distress/SOB or pain. Instructed on POC and to call for assist. Bed locked and in the lowest position, side rails up x2, call light with in reach. Will continue to monitor.
[2019-05-14 08:04] LABS: Protein, Urine 33.1 mg/dL (0.0-11.9)
--- NOTE | 2019-05-14 08:30 | NUR ---
Patient sitting up in bed eating breakfast independently. Will continue to monitor. Addendum: 05/14/19 at 1554 by Brisa Ramirez RN With standby assist from Drew RIVERS
--- NOTE | 2019-05-14 09:30 | NUR ---
Dr. Pierre at bedside. No new orders at this time.
[2019-05-14] MEDS: PANTOPRAZOLE 40 MG TAB PO SCH (09:52)
[2019-05-14] MEDS: ENOXAPARIN SOD 30 MG/0.3 ML SYRINGE SC SCH (09:52)
[2019-05-14] MEDS: cefTRIAXone 1GM/50ML D5W 50 ML IV SCH (09:52)
[2019-05-14] MEDS: SODIUM BICARBONATE 50ML VIAL 150 ML in D5W 5% 1,000 ML IV SCH ×2 (09:53→19:45)
--- NOTE | 2019-05-14 10:00 | NUR ---
Medication dosages, usages, and side effects explained to patient. Patient verbalized understanding. Will continue to monitor.
--- NOTE | 2019-05-14 12:00 | NUR ---
Patient sitting up in bed eating lunch with assistance from his son. Will continue to monitor.
[2019-05-14] MEDS: traMADol HCL 50 MG TAB PO PRN (13:11)
--- NOTE | 2019-05-14 14:45 | NUR ---
Patient complaining of nausea. Antiemetic medication given per protocol.
--- NOTE | 2019-05-14 15:00 | NUR ---
Patient's systolic blood pressure consistently in the 70's. Spoke with Dr. Pierre new order to give patient 500ml bolus and call back if no change.
[2019-05-14] MEDS ORDERED: NOREPINEPHRINE 8 MG/250ML KIT 250 ML IV ONE ×2 (15:24→15:32)
[2019-05-14] MEDS: NOREPINEPHRINE 8 MG/250ML KIT 250 ML IV SCH (15:43)
--- NOTE | 2019-05-14 15:45 | NUR ---
No change after fluid bolus. Spoke with Dr. Pierre new orders to upgrade patient to ICU and start patient on Levophed to keep systolic above 90.
--- NOTE | 2019-05-14 17:00 | NUR ---
Patient sleeping at this time. No S/S of pain/SOB or distress. Patient on Levo at 3mcg/min last B/P 119/61. Will continue to monitor.
[2019-05-14] MEDS ORDERED: MORPHINE SULF INJ 2 MG/ML SYRINGE 1ML IV PRN (18:15)
[2019-05-14] MEDS ORDERED: TEMAZEPAM 15 MG CAP PO PRN (19:45)
--- NOTE | 2019-05-14 20:13 | NUR ---
ARRIVAL NOTE PT ARRIVED TO ICU FROM [facility] AND [facility]ACED IN ROOM 106. RECEIVED PT ON BICARB GTTA T 100 MLS/HR AND LEVO AT 2 MCG. PT ALERT AND ORIENTED AND DROWSY. VS ON ARRIVAL, TEMP 98.0, HR 103, RR 12, O2 SATS 94% ON RA, BP 121/68. MRSA SWAB SENT. PT ORIENTED TO ICU. CALL LIGHT WITHIN REACH, BED LOCKED AND IN LOWEST POSITION, SAFETY PRECAUTIONS IN PLACE. WILL MONITOR PT CAREFULLY.
--- NOTE | 2019-05-14 20:30 | NUR ---
DAUGHTER AT BEDSIDE ASSISTING PT TO EAT JELLO. PT IN UPRIGHT POSITION.
[2019-05-15] VITALS (75 sets, daily range): BP systolic 87–141; BP diastolic 43–70
[2019-05-15 04:56] LABS: Basophils # (auto) 0.1 uL; Eosinophils # (auto) 0.4 uL; Lymphocytes # (auto) 0.8 uL; Monocytes # (auto) 0.6 uL; Neutrophils # (auto) 7.1 uL
[2019-05-15 04:59] LABS: Basophils % (auto) 0.9 % (0.0-2.0); Eosinophils % (auto) 4.9 % (0.0-7.0); Hematocrit 25.3 % (41.0-53.0); Hemoglobin 8.5 g/dL (13.5-17.5); Lymphocytes % (auto) 8.5 % (10.0-50.0); Mean Corpuscular Hemoglobin 26.6 pg (28.0-32.0); Mean Corpuscular Hgb Conc. 33.7 g/dL (32.0-36.0); Mean Corpuscular Volume 78.9 fL (80.0-100.0); Monocytes % (auto) 6.8 % (0.0-12.0); Neutrophils % (auto) 78.9 % (37.0-80.0); Platelet Count (auto) 449 10^3/uL (140-450); Red Blood Cells 3.21 10^6/uL (4.5-5.90); Red Cell Distribution Width 14.7 % (11.8-14.3)
[2019-05-15 05:03] LABS: Potassium 3.3 mmol/L (3.5-5.1)
[2019-05-15 05:12] LABS: BUN/Creatinine Ratio 16.5; Calcium 6.7 mg/dL (8.5-10.1)
[2019-05-15] MEDS: CLINDAMYCIN 600MG IV 50 ML IV SCH ×3 (05:43→22:03)
--- NOTE | 2019-05-15 05:52 | NUR ---
hospitalist notified of pt am BS 403. Orders to increase sliding scale to aggressive. Will carry out order.
--- NOTE | 2019-05-15 06:05 | NUR ---
POC accucheck 167
[2019-05-15] MEDS: ACCU-CHEK COMFORT CURVE STRIP VI SCH ×4 (06:35→22:03)
[2019-05-15] MEDS: POTASSIUM CHL 20MEQ/100ML 100 ML IV SCH ×3 (06:45→09:43)
[2019-05-15] MEDS: InsuLIN REG 1unit/0.01ml Soln (100units/ml) SC SCH ×4 (06:46→22:00)
--- NOTE | 2019-05-15 07:05 | NUR ---
REPORT RECEIVED FROM PLANT [employer]PER[employer] VICE PRESIDENT NURSE. PATIENT RESTING IN BED AT THIS TIME. RESPIRATIONS EVEN AND UNLABORED. NO SIGNS OF ACUTE DISTRESS NOTED. CALL LIGHT IN REACH, BED IN LOW POSITION. WILL CONTINUE TO MONITOR.
--- NOTE | 2019-05-15 08:43 | NUR ---
DR HALE AT BEDSIDE TO ASSESS PATIENT AND DISCUSS PLAN OF CARE. ORDERS NOTED IN CHART.
--- NOTE | 2019-05-15 09:02 | NUR ---
DR DIAZ AT BEDSIDE TO ASSESS PATIENT AND DISCUSS PLAN OF CARE. MD MADE AWARE OF POTASSIUM LEVEL. ALL ORDERS NOTED IN CHART.
[2019-05-15] MEDS ORDERED: POTASSIUM CHL 20 Meq TABLET PO ONE (09:15)
[2019-05-15] MEDS: cefTRIAXone 1GM/50ML D5W 50 ML IV SCH (09:25)
[2019-05-15] MEDS: PANTOPRAZOLE 40 MG TAB PO SCH (09:28)
[2019-05-15] MEDS: traMADol HCL 50 MG TAB PO PRN ×2 (09:29→17:04)
[2019-05-15] MEDS: ENOXAPARIN SOD 30 MG/0.3 ML SYRINGE SC SCH (09:29)
[2019-05-15] MEDS: SODIUM CHLORIDE 0.9% 1,000 ML IV SCH ×2 (09:35→16:45)
[2019-05-15] MEDS: NOREPINEPHRINE 8 MG/250ML KIT 250 ML IV SCH (15:45)
[2019-05-15] MEDS: TAMSULOSIN HYDROCHLORIDE 0.4 MG CAP PO SCH (17:04)
[2019-05-16] VITALS (27 sets, daily range): BP systolic 99–132; BP diastolic 51–79
[2019-05-16] MEDS: SODIUM CHLORIDE 0.9% 1,000 ML IV SCH ×3 (02:00→22:45)
[2019-05-16 04:22] LABS: Hemoglobin 8.3 g/dL (13.5-17.5)
[2019-05-16 04:28] LABS: Hematocrit 24.5 % (41.0-53.0); Mean Corpuscular Hemoglobin 26.8 pg (28.0-32.0); Mean Corpuscular Hgb Conc. 33.8 g/dL (32.0-36.0); Mean Corpuscular Volume 79.4 fL (80.0-100.0); Platelet Count (auto) 454 10^3/uL (140-450); Red Blood Cells 3.08 10^6/uL (4.5-5.90); Red Cell Distribution Width 14.7 % (11.8-14.3); White Blood Cell 9.6 10^3/uL (4.4-10.8)
[2019-05-16 04:40] LABS: % Iron Saturation 12.8 % (20-55)
[2019-05-16 04:43] LABS: Calcium 7.4 mg/dL (8.5-10.1); Potassium 3.6 mmol/L (3.5-5.1)
[2019-05-16 04:59] LABS: Basophils % (manual) 0 (0.0-2.0); Blast Cells 0; Metamyelocytes % 0; Myelocytes % 0; Promyelocytes % 0; Reactive Lymphocytes 0
--- NOTE | 2019-05-16 05:38 | NUR ---
TWICE BG WAS 80/79 IN SPITE OF OJ AND JELLO OFFERED. NOW BROUGHT TO PT 2 TURKEY SANDWICHES.PT REMAINS COHERENT, ASYMPTOMATIC.
[2019-05-16] MEDS: CLINDAMYCIN 600MG IV 50 ML IV SCH (06:00)
[2019-05-16] MEDS: ACCU-CHEK COMFORT CURVE STRIP VI SCH ×4 (06:33→22:00)
[2019-05-16] MEDS: InsuLIN REG 1unit/0.01ml Soln (100units/ml) SC SCH ×4 (06:34→22:00)
[2019-05-16 06:44] LABS: Band Neutrophils % (manual) 2; Eosinophils % (manual) 4 (0-7); Lymphocytes % (manual) 14 (10.0-50.0); Monocytes % (manual) 2 (0-12)
[2019-05-16] MEDS: cefTRIAXone 1GM/50ML D5W 50 ML IV SCH (08:46)
[2019-05-16] MEDS: FERROUS SULFATE 325 MG TAB PO SCH ×2 (08:46→18:39)
--- NOTE | 2019-05-16 09:45 | NUR ---
ELIMINATION Patient had a large loose bowel movement. [facility] provided with the assistance of charge nurse Shanna. Patient tolerated well. Complete linen change done at this time.
[2019-05-16] MEDS: PANTOPRAZOLE 40 MG TAB PO SCH (10:08)
[2019-05-16] MEDS: ACETAMINOPHEN 500 MG TAB PO PRN (10:08)
[2019-05-16] MEDS: ENOXAPARIN SOD 30 MG/0.3 ML SYRINGE SC SCH (10:08)
--- NOTE | 2019-05-16 11:20 | NUR ---
MD Dr. Pearson at bedside updated on patient condition with new orders to downgrade patient to telemetry and to get an ultrasound of the left arm to rule out DVT, this RN to input into system. Will notify charge nurse Shanna of downgrade.
--- NOTE | 2019-05-16 11:40 | NUR ---
CARBAJAL CATHETER Carbajal catheter was discontinued, patient tolerated well. Urinal given to patient, instructed to use when needing to void.
[2019-05-16] MEDS ORDERED: VANCOMYCIN PER PHARMACY 0 MG IV SCH (11:45)
[2019-05-16] MEDS ORDERED: TAMSULOSIN HYDROCHLORIDE 0.4 MG CAP PO ONE (11:45)
[2019-05-16 12:18] LABS: Hepatitis B Surface Antibody Negative
[2019-05-16] MEDS: PIPERACILLIN-TAZO 4.5GM 100 ML IV SCH ×2 (12:32→20:00)
[2019-05-16] MEDS: FLUCONAZOLE 200MG/100ML 100 ML IV SCH ×2 (12:33→13:00)
[2019-05-16 12:56] LABS: Hepatitis A Total Antibody Positive
[2019-05-16 13:46] LABS: Hepatitis B Core Total AB Negative; Hepatitis B Surface Antigen Negative (Negative); Hepatitis C Antibody Negative (Negative)
--- NOTE | 2019-05-16 14:10 | NUR ---
ELIMINATION Patient has a moderate loose bowel movement, wilberto-care provided with the assistance of Kirstin GUO. Partial linen change done at this time. Patient tolerated well.
[2019-05-16] MEDS: VANCOMYCIN 1,500 MG in D5W 5% 250 ML IV SCH (15:00)
[2019-05-16] MEDS: NOREPINEPHRINE 8 MG/250ML KIT 250 ML IV SCH (15:45)
--- NOTE | 2019-05-16 16:10 | NUR ---
ELIMINATION Patient has not voided since discontinuing Lyle catheter ORDERED ultrasound of kidney with post voided residual per MD orders.
--- NOTE | 2019-05-16 18:00 | NUR ---
ULTRASOUND computer forensics technician at bedside to obtain study.
--- NOTE | 2019-05-16 18:25 | NUR ---
ELIMINATION Patient had small loose bowel movement, wilberto- care provided with the assistance of Ruby GUO and partial linen change done. Per patient has void a little during bowel movement. Awaiting for ultrasound results.
[2019-05-16] MEDS: TAMSULOSIN HYDROCHLORIDE 0.4 MG CAP PO SCH ×2 (18:39→20:00)
[2019-05-16] MEDS: ATORVASTATIN 20 MG TAB PO SCH (20:55)
--- NOTE | 2019-05-16 22:00 | NUR ---
PATIENT TRIED FOR APPROX 1 HR TO VOID, ONLY PUT OUT 200 ML AND SAID THAT HE HAS THE URGENCY NOW AND ASKED TO HAVE THE CATH REINSERTED. BLADDER RESIDUAL OBTAINED WAS 1750 ML.PT MEDICATED FOR PAIN AT HIS REQUEST PRIOR TO INSERTION.
[2019-05-17] VITALS (15 sets, daily range): BP systolic 96–132; BP diastolic 52–69
[2019-05-17] MEDS: PIPERACILLIN-TAZO 4.5GM 100 ML IV SCH ×5 (01:00→23:41)
[2019-05-17] MEDS: VANCOMYCIN 1,500 MG in D5W 5% 250 ML IV SCH ×2 (03:25→16:12)
[2019-05-17 03:26] LABS: Hemoglobin 8.6 g/dL (13.5-17.5); Mean Corpuscular Volume 78.8 fL (80.0-100.0); Red Cell Distribution Width 14.6 % (11.8-14.3)
[2019-05-17 03:30] LABS: Hematocrit 25.3 % (41.0-53.0); Mean Corpuscular Hemoglobin 26.6 pg (28.0-32.0); Mean Corpuscular Hgb Conc. 33.8 g/dL (32.0-36.0); Platelet Count (auto) 436 10^3/uL (140-450); Red Blood Cells 3.21 10^6/uL (4.5-5.90); White Blood Cell 9.9 10^3/uL (4.4-10.8)
[2019-05-17 03:38] LABS: Albumin 1.4 g/dL (3.4-5.0); Calcium 7.8 mg/dL (8.5-10.1); Magnesium 1.8 mg/dL (1.6-2.6); Potassium 3.3 mmol/L (3.5-5.1)
[2019-05-17 03:41] LABS: BUN/Creatinine Ratio 16.3
[2019-05-17 03:44] LABS: Band Neutrophils % (manual) 0; Basophils % (manual) 0 (0.0-2.0); Bilirubin, Total 0.3 mg/dL (0.2-1.0); Blast Cells 0; Myelocytes % 0; Promyelocytes % 0; Reactive Lymphocytes 0; Total Protein 5.5 g/dL (6.4-8.2)
[2019-05-17 03:55] LABS: Eosinophils % (manual) 6 (0-7); Lymphocytes % (manual) 8 (10.0-50.0); Metamyelocytes % 2; Monocytes % (manual) 9 (0-12)
[2019-05-17 04:29] LABS: CRP High Sensitivity 8.37 mg/dL (< 0.3)
[2019-05-17] MEDS: ACCU-CHEK COMFORT CURVE STRIP VI SCH ×4 (06:39→21:37)
[2019-05-17] MEDS: InsuLIN REG 1unit/0.01ml Soln (100units/ml) SC SCH ×4 (06:39→21:44)
--- NOTE | 2019-05-17 06:49 | NUR ---
PT 'S CONDITION REMAINS STABLE, DETERMONED TO TRY TO GET OOB TODAY. 2250 ML URINE EMPTIED AT 6 AM IN ADDITION TO THE AMT OBTAINED WHEN PT WAS CATHETERIZED, CLEAR ,YELLOW URINE.
--- NOTE | 2019-05-17 08:15 | NUR ---
ELIMINATION Patient had a moderate amount of loose brown bowel movement, wilberto- care provided with the assistance of Marley GUO and complete linen change done. Patient tolerated well.
[2019-05-17] MEDS: SODIUM CHLORIDE 0.9% 1,000 ML IV SCH ×2 (08:45→12:09)
[2019-05-17] MEDS ORDERED: POTASSIUM CHL 20 Meq TABLET PO ONE (10:00)
[2019-05-17] MEDS: PANTOPRAZOLE 40 MG TAB PO SCH (10:09)
[2019-05-17] MEDS: ACETAMINOPHEN 500 MG TAB PO PRN ×2 (10:09→21:44)
[2019-05-17] MEDS: FLUCONAZOLE 200MG/100ML 100 ML IV SCH ×2 (10:10→12:10)
[2019-05-17] MEDS: FERROUS SULFATE 325 MG TAB PO SCH ×2 (10:10→18:36)
[2019-05-17] MEDS: ENOXAPARIN SOD 30 MG/0.3 ML SYRINGE SC SCH (10:11)
[2019-05-17] MEDS: MAGNESIUM SULFATE 1GM/100ML 100 ML IV SCH ×3 (10:11→14:22)
--- NOTE | 2019-05-17 10:30 | NUR ---
ELIMINATION Patient had small loose bowel movement, wilberto-care provided with the assistance of Susie GUO and partial linen change done. Patient tolerated well.
--- NOTE | 2019-05-17 10:50 | NUR ---
REPORT Report given to Tan GUO who will continue plan of care once patient arrives to room 201.
--- NOTE | 2019-05-17 11:08 | NUR ---
TRANSFERRED Patient transferred to ROOM 201 via Telemetry floor bed, with telemetry box applied accompanied by charge nurse Shanna and Drew WHALEY. All belongs sent with patient and son.
--- NOTE | 2019-05-17 11:43 | NUR ---
NUTRITION ASSESSMENT NOTES Please refer to link notes of nutrition screen form filed under the intervention section of the plan of care for further details. Est. Needs: 1500 kcal to 2000 kcal (15-20 kcal/kgBW), 80 gms to 100 gms pro (0.8-1.0 gms/kgBW). Will continue to monitor pertinent labs and reassess nutrient need prn Thank you. Addendum: 05/17/19 at [address] Amended: Links added.
--- NOTE | 2019-05-17 16:38 | NUR ---
Assessment Pt is a 63 yr old alert and oriented male. Prior to admit, Pt lives with and kids but will be moving in with son in [place] [facility] [facility] upon d/c for caregiving. Prior to admit, pt was ambulatory and independent with ADL's. Pt states that his will not help him in the home but his son and daughter in law can help cook, clean, bathe, assist with ADL's as needed. Pt's nurse was assisting pt with feeding him due to weakness. Pt admitted with SOB and stated that because of his diabetes his feet have swelled and he is unable to walk. Pt stated that he takes medications for diabetes. Pt stated that he does not currently have insurance but that medicare will start for him on the june. Pt receives residential income. Pt interested in POA paperwork, SW provided. Pt's son will transport pt home upon medical clearance. Pt's plans to d/c to son's home in [place] [facility] upon d/c. Further needs will be assessed closer to d/c. Addendum: 05/17/19 at 1648 by ANGY BANUELOS Amended: Links added.
[2019-05-17] MEDS: TAMSULOSIN HYDROCHLORIDE 0.4 MG CAP PO SCH (18:36)
--- NOTE | 2019-05-17 19:30 | NUR ---
Opening shift note Assumed care of patient from day shift nurse. Patient is A&O x4. Currently on RA with no c/o SOB. No distress noted. Reports 9/10 pain in back and bilateral sides related to repositioning. Requests PRN Tylenol. Lyle catheter in place and draining light yellow urine to gravity. Patient is non-ambulatory, with significant peripheral neuropathy in all four extremities. 2+ pitting edema in right upper extremity. 3+ pitting edema in BLE. Wound to plantar surface of right great toe dry and open to air. [facility] provided; barrier cream applied to redness on scrotum and buttocks. Optifoam applied to skin tear on sacrum. Patient positioned onto right side. Tolerates well. Bed is in low locked position with side rails up x2. Call light is within reach and patient encouraged to call for assistance when needed. Will continue to monitor for changes PRN.
[2019-05-17] MEDS: ATORVASTATIN 20 MG TAB PO SCH (21:32)
--- NOTE | 2019-05-18 02:20 | NUR ---
IV removal Patient unintentionally pulled out IV in left fore arm. Catheter fully intact. Pressure dressing applied to site. Patient tolerated well.
[2019-05-18 02:48] LABS: Albumin 1.5 g/dL (3.4-5.0); BUN/Creatinine Ratio 11.1; Calcium 7.6 mg/dL (8.5-10.1); Potassium 3.3 mmol/L (3.5-5.1)
[2019-05-18 02:50] LABS: Bilirubin, Total 0.3 mg/dL (0.2-1.0); Total Protein 5.7 g/dL (6.4-8.2)
[2019-05-18] MEDS: VANCOMYCIN 1,500 MG in D5W 5% 250 ML IV SCH (03:13)
--- NOTE | 2019-05-18 04:58 | NUR ---
Patient had an episode of incontinence of stool. Moderate amount of green soft stool. Patient cleansed, barrier cream applied and clean Optifoam dressing applied. Patient repositioned and heels floated on pillow. Tolerates care well.
[2019-05-18 05:38] VITALS: BP 108/70
[2019-05-18] MEDS: SODIUM CHLORIDE 0.9% 1,000 ML IV SCH ×2 (05:41→23:30)
[2019-05-18] MEDS: PIPERACILLIN-TAZO 4.5GM 100 ML IV SCH ×4 (05:41→23:51)
[2019-05-18] MEDS: InsuLIN REG 1unit/0.01ml Soln (100units/ml) SC SCH ×4 (05:42→21:44)
[2019-05-18] MEDS: ACCU-CHEK COMFORT CURVE STRIP VI SCH ×4 (05:42→21:44)
[2019-05-18 08:31] VITALS: BP 125/66
[2019-05-18] MEDS ORDERED: POTASSIUM CHL 20 Meq TABLET PO ONE (10:15)
[2019-05-18] MEDS: PANTOPRAZOLE 40 MG TAB PO SCH (10:52)
[2019-05-18] MEDS: ENOXAPARIN SOD 30 MG/0.3 ML SYRINGE SC SCH (10:52)
[2019-05-18] MEDS: FLUCONAZOLE 200MG/100ML 100 ML IV SCH ×2 (10:53→12:09)
[2019-05-18] MEDS: FERROUS SULFATE 325 MG TAB PO SCH ×2 (10:53→17:26)
[2019-05-18 13:00] VITALS: BP 116/73
[2019-05-18] MEDS: traMADol HCL 50 MG TAB PO PRN (13:23)
[2019-05-18] MEDS: VANCOMYCIN 1,250 MG in D5W 5% 250 ML IV SCH (14:55)
[2019-05-18 17:25] VITALS: BP 120/71
[2019-05-18] MEDS: TAMSULOSIN HYDROCHLORIDE 0.4 MG CAP PO SCH (17:27)
--- NOTE | 2019-05-18 20:20 | NUR ---
RECEIVE IN BEDPARTIAL BATH GIVENREPOSITIONED AND MADE COMFORTABLE
[2019-05-18] MEDS: ATORVASTATIN 20 MG TAB PO SCH (21:44)
[2019-05-18 22:00] VITALS: BP 114/67
[2019-05-19] MEDS: VANCOMYCIN 1,250 MG in D5W 5% 250 ML IV SCH ×2 (02:45→15:34)
[2019-05-19 04:37] LABS: Basophils # (auto) 0 uL; Eosinophils # (auto) 0.5 uL; Eosinophils % (auto) 6.4 % (0.0-7.0)
[2019-05-19 04:38] LABS: Basophils % (auto) 0.5 % (0.0-2.0); Hematocrit 27.4 % (41.0-53.0); Lymphocytes % (auto) 12.3 % (10.0-50.0); Mean Corpuscular Hemoglobin 26.1 pg (28.0-32.0); Mean Corpuscular Hgb Conc. 32.8 g/dL (32.0-36.0); Mean Corpuscular Volume 79.7 fL (80.0-100.0); Monocytes # (auto) 0.6 uL; Neutrophils # (auto) 6.2 uL; Neutrophils % (auto) 73.8 % (37.0-80.0); Nucleated Red Blood Cells % 0.1 %; Platelet Count (auto) 422 10^3/uL (140-450); Red Blood Cells 3.44 10^6/uL (4.5-5.90); White Blood Cell 8.4 10^3/uL (4.4-10.8)
[2019-05-19 04:56] LABS: BUN/Creatinine Ratio 8.5; Calcium 7.6 mg/dL (8.5-10.1); Magnesium 1.8 mg/dL (1.6-2.6); Potassium 3.6 mmol/L (3.5-5.1)
[2019-05-19 05:14] VITALS: BP 105/61
[2019-05-19] MEDS: PIPERACILLIN-TAZO 4.5GM 100 ML IV SCH ×4 (06:05→23:45)
[2019-05-19] MEDS: ACCU-CHEK COMFORT CURVE STRIP VI SCH ×4 (06:05→22:59)
[2019-05-19] MEDS: InsuLIN REG 1unit/0.01ml Soln (100units/ml) SC SCH ×4 (06:36→23:04)
[2019-05-19] MEDS: FERROUS SULFATE 325 MG TAB PO SCH ×2 (08:21→17:41)
[2019-05-19 09:13] VITALS: BP 112/62
[2019-05-19] MEDS: PANTOPRAZOLE 40 MG TAB PO SCH (10:02)
[2019-05-19] MEDS: FLUCONAZOLE 200MG/100ML 100 ML IV SCH ×2 (10:02→10:37)
[2019-05-19] MEDS: ENOXAPARIN SOD 30 MG/0.3 ML SYRINGE SC SCH (10:03)
[2019-05-19] MEDS: DAKINS QUARTER STR 0.125% (NaHypochlorite) 473 ML TOPICAL SOL TOP SCH ×2 (10:36→22:59)
[2019-05-19] MEDS: SODIUM CHLORIDE 0.9% 1,000 ML IV SCH (12:02)
[2019-05-19 13:00] VITALS: BP 106/63
[2019-05-19] MEDS: traMADol HCL 50 MG TAB PO PRN ×2 (13:36→21:08)
[2019-05-19] MEDS ORDERED: GADOTERIDOL 279.3mg/mL 20ml Vial IV ONE (13:50)
[2019-05-19 16:59] VITALS: BP 100/71
--- NOTE | 2019-05-19 17:18 | NUR ---
I faxed higher level of care order to [facility] and [facility], [place] ([facility])-provided contact information for Dr. Pearson and the nurse's station on cover sheet.
[2019-05-19] MEDS: TAMSULOSIN HYDROCHLORIDE 0.4 MG CAP PO SCH (17:41)
[2019-05-19 22:00] VITALS: BP 105/60
[2019-05-19] MEDS: ATORVASTATIN 20 MG TAB PO SCH (22:59)
--- NOTE | 2019-05-19 22:59 | NUR ---
DRESSING CHANGE PERFORMED TO PATIENT'S RIGHT FOOT/GREAT TOE ORDERED. WTD WITH [employer]. DRESSING LIGHTLY WRAPPED WITH KERLIX AND SECURED WITH TAPE. PATIENT TOLERATED WELL. DENIES PAIN AT SITE.
--- NOTE | 2019-05-19 23:30 | NUR ---
[facility] CALL TO [facility] PER DR. OSEGUERA REQUEST TO CHECK ON STATUS OF PATIENT'S TRANSFER. SPOKE TO TIPPLE REPAIRER, TRANSFER RN TO RETURN MY CALL PER TIPPLE REPAIRER.
--- NOTE | 2019-05-19 23:56 | NUR ---
PER BRI WOLF TRANSFER RN AT [facility]. NO UPDATE REGARDING TRANSFER AT THIS TIME. PER BRI PATIENT IS SELF PAY AND RETURN AGREEMENT TO BE SENT OVER TO CASE MANAGEMENT IN AM. WILL ENDORSE TO DAY SHIFT RN.
[2019-05-20] MEDS: VANCOMYCIN 1,250 MG in D5W 5% 250 ML IV SCH (03:24)
[2019-05-20] MEDS: SODIUM CHLORIDE 0.9% 1,000 ML IV SCH ×2 (05:25→22:05)
[2019-05-20 05:49] VITALS: BP 105/75
[2019-05-20] MEDS: PIPERACILLIN-TAZO 4.5GM 100 ML IV SCH ×3 (06:35→17:26)
[2019-05-20] MEDS: ACCU-CHEK COMFORT CURVE STRIP VI SCH ×4 (06:50→23:05)
[2019-05-20] MEDS: InsuLIN REG 1unit/0.01ml Soln (100units/ml) SC SCH ×4 (06:50→23:08)
[2019-05-20 08:15] VITALS: BP 108/68
[2019-05-20] MEDS: FERROUS SULFATE 325 MG TAB PO SCH ×2 (08:20→17:26)
--- NOTE | 2019-05-20 08:33 | NUR ---
Opening Shift Note Assumed care of patient, awake and alert. No S/S of distress/SOB or pain. Instructed on POC and to call for assist PRN, will continue to monitor for changes Q1hr and PRN. updatedmd sidiqui and last night call to transfer center to [facility] per night marketing pr intern center to send paperwork to [facility] this am
[2019-05-20] MEDS: ENOXAPARIN SOD 30 MG/0.3 ML SYRINGE SC SCH (11:00)
[2019-05-20] MEDS: FLUCONAZOLE 200MG/100ML 100 ML IV SCH ×2 (11:00→12:14)
[2019-05-20] MEDS: PANTOPRAZOLE 40 MG TAB PO SCH (11:00)
[2019-05-20] MEDS: DAKINS QUARTER STR 0.125% (NaHypochlorite) 473 ML TOPICAL SOL TOP SCH (11:01)
[2019-05-20] MEDS: traMADol HCL 50 MG TAB PO PRN ×2 (11:18→23:08)
--- NOTE | 2019-05-20 11:38 | NUR ---
I called [facility] transfer center [phone] and spoke with Stacy regarding the transfer request, provided her with contact information for Dr. Pearson and the nurse's [id number] clinical information to them at [phone]. Per Stacy they will call later to let us know if they have any beds available.
--- NOTE | 2019-05-20 11:47 | NUR ---
I called [facility] and spoke with Jennifer in Admitting [phone] extension [phone]-she is going to speak with her MD regarding this patient's financial status and will give me a call back.
--- NOTE | 2019-05-20 12:34 | NUR ---
Faxed spine MRI report to Jennifer at [facility], [place] per her request.
[2019-05-20 13:00] VITALS: BP 114/65
--- NOTE | 2019-05-20 13:49 | NUR ---
PT PATIENT REFUSED P.T. BRANT FRANCO WAS NOTIFIED. Addendum: 05/20/19 at 1350 by NANCY GURROLA PTT Amended: Links added.
--- NOTE | 2019-05-20 13:50 | NUR ---
talked to marylin gearcase assembler regarding pt discharge/transfer status. per Marylin CM no hospitals have confirmed for transfer yet reaching out to [facility] and [facility]
--- NOTE | 2019-05-20 13:56 | NUR ---
spoke to pt daughter updated on plan of care
--- NOTE | 2019-05-20 15:24 | NUR ---
Nutrition Follow-up Notes Wt.: 96.4 kg today. Pt's, asleep, no immediate family member at bedside during rounds this morning. Pt's no signs of distress noted earlier, currently on Consistent Standard Carb: 60 gms/meal diet with Prostat 1 pkt BID, has adequate PO intake aeb 90% ave. consumed meals (x6) in last 2.5 days. Noted pt's for active Wound consult. Est. Needs: 1500 kcal to 2000 kcal (15-20 kcal/kgBW), 80 gms to 100 gms pro (0.8-1.0 gms/kgBW). Will continue to monitor pertinent labs and reassess nutrient need prn Labs: POC Gluc 195 H; 05/19/19 Gluc 210 H, BUN 5 L, Cr 0.59 L, Ca 7.6 L Skin: Viet scale 15, mod risk, pt's sacrum pressure area per flight nurse. 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 PES: Altered nutrition related lab values r/t current/chronic medical condition aeb hypokalemia, hypocalcemia,low Cr and severe hypoalbuminemia Obesity r/t food intake more than body requirement aeb 155% IBW, BMI 35.6 kg/m2 and increased body adiposity Will continue to monitor PO intake, skin status, pertinent labs and weight trend. F/u in 3 to 5 days. Rec.: 1.) Pls enter order for daily MVI with minerals and Asc acid 500 mgs BID, already e-signed approved by . 2.) Continue close supervision during meals. 3.) Refer pt to CDE/RD for further nutrition education and weight monitoring upon discharge. 4.) Continue current plan of care.
[2019-05-20] MEDS: VANCOMYCIN 1GM/250ML 250 ML IV SCH (16:12)
--- NOTE | 2019-05-20 17:18 | NUR ---
I placed KITTY on will-call pending transfer to [facility] (spoke with Lukas at [facility])-faxed him MEDI-[employer] form per his request (he is aware that patient does not have medi-gosia). Per Jennifer at [facility] they will call to let us know if they are able to accept this patient and if/when a bed becomes available.
[2019-05-20 17:20] VITALS: BP 126/73
[2019-05-20] MEDS: TAMSULOSIN HYDROCHLORIDE 0.4 MG CAP PO SCH (17:27)
[2019-05-20] MEDS ORDERED: Pro-Stat SF 30ml Vanilla PO SCH (18:00)
[2019-05-20 22:00] VITALS: BP 100/58
[2019-05-20] MEDS: ATORVASTATIN 20 MG TAB PO SCH (23:06)
--- NOTE | 2019-05-20 23:35 | NUR ---
[facility] SPOKE TO [place] AT [facility]. PATIENT GOING TO BED 4304, TELEMETRY UNIT. ACCEPTING PHYSICIAN: . CALL REPORT TO [phone].
--- NOTE | 2019-05-20 23:40 | NUR ---
[facility] SPOKE TO [facility] REGARDING PATIENT'S TRANSFER TO [facility]. ETA GIVEN OF 2 HOURS. WILL UPDATE PATIENT. MEDI-PAUL FORM FAXED PER REQUEST TO [phone].
[2019-05-21] MEDS: PIPERACILLIN-TAZO 4.5GM 100 ML IV SCH (00:08)
--- NOTE | 2019-05-21 00:10 | NUR ---
FAMILY UPDATED ON TRANSFER SPOKE TO PATIENT'S DAUGHTER ALEXANDRA PER PATIENT REQUEST. INFORMED HER OF PATIENT'S TRANSFER TO [facility], GOING TO ROOM 4304. ALL QUESTIONS AND CONCERNS ADDRESSED.
--- NOTE | 2019-05-21 00:45 | NUR ---
REPORT GIVEN TO KALEIGH GUO AT [phone]. PATIENT GOING TO ROOM 4304, ACCEPTING PHYSICIAN . ALL QUESTIONS AND CONCERNS ADDRESSED.
--- NOTE | 2019-05-21 01:25 | NUR ---
[facility] UPDATED ETA CALL FROM [facility] NEW ETA GIVEN OF 60-90MIN
[2019-05-21 02:00] VITALS: BP 108/64
[2019-05-21] MEDS: DAKINS QUARTER STR 0.125% (NaHypochlorite) 473 ML TOPICAL SOL TOP SCH (02:12)
[2019-05-21] MEDS: VANCOMYCIN 1GM/250ML 250 ML IV SCH (02:33)
--- NOTE | 2019-05-21 03:15 | NUR ---
Pt being trans to another hosp Order obtained for transfer of BLAZE BAILEY to [facility]. Report called/given to Tan GUO. Report given to EMS transport team. Medication reconciliation form completed and copy given to patient. Transported via gurney along with copied chart and imaging films/disk and all personal belongings. No distress noted on time of departure. Family notified of destination and room number, verbalized understanding.
== END 2019-05-21 03:10 | disposition short-term general hospital (02) | DRG 871 ==
LOC: ER 15:00 → EDBD 15:00 → OVERFLOW 15:01 → DOU IN ICU 22:35 → ICU WEST 05-14 19:57 → TELE-CENTR 05-17 11:13
PROVIDERS: ADMIT Internal Medicine; ATTEND Internal Medicine
DX: A41.9 Sepsis, unspecified organism (principal); J18.9 Pneumonia, unspecified organism; E43 Unspecified severe protein-calorie malnutrition; G06.2 Extradural and subdural abscess, unspecified; L03.115 Cellulitis of right lower limb; N17.9 Acute kidney failure, unspecified; E87.1 Hypo-osmolality and hyponatremia; B37.49 Other urogenital candidiasis; E87.2 Acidosis; N13.6 Pyonephrosis; R65.20 Severe sepsis without septic shock; E87.5 Hyperkalemia; E11.21 Type 2 diabetes mellitus with diabetic nephropathy; D50.9 Iron deficiency anemia, unspecified; E11.65 Type 2 diabetes mellitus with hyperglycemia; E78.5 Hyperlipidemia, unspecified; E66.9 Obesity, unspecified; N13.9 Obstructive and reflux uropathy, unspecified; R33.9 Retention of urine, unspecified; M48.00 Spinal stenosis, site unspecified; G89.29 Other chronic pain; K21.9 Gastro-esophageal reflux disease without esophagitis; E87.6 Hypokalemia; L08.9 Local infection of the skin and subcutaneous tissue, unspecified; Z79.84 Long term (current) use of oral hypoglycemic drugs; Z90.49 Acquired absence of other specified parts of digestive tract; Z79.899 Other long term (current) drug therapy; Z68.32 Body mass index [BMI] 32.0-32.9, adult; Z91.19 Patient's noncompliance with other medical treatment and regimen
CPT/HCPCS: 36415; 51702; 71045; 72158; 73700; 76775; 80048; 80053; 80202; 81001; 82378; 82550; 82570; 82962; 83036; 83540; 83550; 83605; 83735; 83880; 83930; 84154; 84156; 84300; 84484; 85007; 85025; 85027; 85610; 85652; 85730; 86141; 86704; 86706; 86708; 86803; 87040; 87081; 87086; 87088; 87340; 87493; 93005; 93926; 93971; 96365; 96366; 97110; 97116; 97530; 99291; G0378; J0696; J1450; J1815; J2543; J3490; J7060

== ENCOUNTER 2020-02-04 16:57 | Inpatient (IN) | payer BC, OTHER ==
[~2020-02-04] VITALS: Ht 167.6 cm; Wt 86.2 kg
[~2020-02-04 16:57] MED LIST changes: -NIAC500T13 PO; +NIAC500T93 PO
[2020-02-04 19:28] LABS: Basophils # (auto) 0.1 10 ^3/uL (0-0.2); Basophils % (auto) 0.9 % (0.0-2.0); Eosinophils # (auto) 0.6 10 ^3/uL (0-0.8); Eosinophils % (auto) 7.2 % (0.0-7.0); Hematocrit 36.1 % (41.0-53.0); Hemoglobin 11.9 g/dL (13.5-17.5); Lymphocytes # (auto) 1.8 10 ^3/uL (0.4-5.4); Mean Corpuscular Hemoglobin 25.2 pg (28.0-32.0); Mean Corpuscular Hgb Conc. 32.9 g/dL (32.0-36.0); Mean Corpuscular Volume 76.7 fL (80.0-100.0); Monocytes # (auto) 0.5 10 ^3/uL (0-1.3); Monocytes % (auto) 6.3 % (0.0-12.0); Neutrophils # (auto) 5.6 10 ^3/uL (1.6-8.6); Neutrophils % (auto) 64.6 % (37.0-80.0); Nucleated Red Blood Cells % 0.1 %; Platelet Count (auto) 406 10^3/uL (140-450); Red Cell Distribution Width 14.3 % (11.8-14.3); White Blood Cell 8.6 10^3/uL (4.4-10.8)
[2020-02-04 19:47] LABS: Albumin 3.3 g/dL (3.4-5.0); Anion Gap 6 (5-15); Blood Urea Nitrogen 19 mg/dL (7-18); Calcium 8.5 mg/dL (8.5-10.1); Carbon Dioxide 26 mmol/L (21-32); Chloride 106 mmol/L (98-107); Glucose 131 mg/dL (74-106); Potassium 3.9 mmol/L (3.5-5.1); Sodium 138 mmol/L (136-145)
[2020-02-04 19:53] LABS: Alanine Aminotransferase 19 U/L (16-61); Alkaline Phosphatase 116 U/L (45-117); Aspartate Aminotransferase 12 U/L (15-37); BUN/Creatinine Ratio 23.2; Bilirubin, Total 0.3 mg/dL (0.2-1.0); GFR African American 121 mL/min; GFR Non-African American 100 mL/min; Total Protein 7.5 g/dL (6.4-8.2)
[2020-02-04 20:06] LABS: Urine Bacteria FEW /hpf (None Seen); Urine Blood 3+ /uL (Negative); Urine Specific Gravity 1.011 (1.001-1.035); Urine WBC 14 /hpf (0 - 3)
[2020-02-04] MEDS ORDERED: cefTRIAXone 1GM/50ML D5W 50 ML IV ONE (21:00)
[2020-02-04] MEDS ORDERED: HYDROcodone-ACET 5/325MG TAB PO ONE (21:45)
[2020-02-04] MEDS ORDERED: DEXTROSE (50%) 50ML SYRG IV PRN (23:30)
[2020-02-04] MEDS ORDERED: HYDROcodone-ACET 5/325MG TAB PO PRN (23:30)
[2020-02-04] MEDS ORDERED: ONDANSETRON HCL 4 MG/2 ML VIAL IV PRN (23:30)
[2020-02-04] MEDS ORDERED: DOCUSATE SOD 100 MG CAP PO PRN (23:30)
[2020-02-04] MEDS ORDERED: ACETAMINOPHEN 325 MG TAB PO PRN (23:30)
[2020-02-04] MEDS ORDERED: MORPHINE SULF INJ 2 MG/ML SYRINGE 1ML IV PRN (23:30)
[2020-02-04] MEDS: SODIUM CHLORIDE 0.9% 1,000 ML IV SCH (23:58)
[2020-02-04] MEDS: ACCU-CHEK COMFORT CURVE STRIP VI SCH (23:58)
[2020-02-04] MEDS: InsuLIN REG 1unit/0.01ml Soln (100units/ml) SC SCH (23:59)
[2020-02-05 02:10] VITALS: BP 114/74
[2020-02-05 02:20] VITALS: BP 115/74
[2020-02-05] MEDS: InsuLIN REG 1unit/0.01ml Soln (100units/ml) SC SCH ×5 (03:45→18:00)
[2020-02-05] MEDS: ACCU-CHEK COMFORT CURVE STRIP VI SCH ×5 (03:45→18:00)
[2020-02-05 05:32] VITALS: BP 135/63
[2020-02-05] MEDS: SODIUM CHLORIDE 0.9% 1,000 ML IV SCH ×2 (08:55→20:30)
[2020-02-05] MEDS: cefTRIAXone 1GM/50ML D5W 50 ML IV SCH (08:55)
[2020-02-05 09:00] VITALS: BP 121/73
[2020-02-05] MEDS: DAKINS HALF STR 0.25% (NaHypochlorite) 473 ML TOPICAL SOL TOP SCH ×2 (10:00→22:00)
[2020-02-05] MEDS ORDERED: LACTULOSE 20Gm/30ML SOLN PO PRN (10:00)
[2020-02-05 10:23] LABS: Basophils # (auto) 0 10 ^3/uL (0-0.2); Basophils % (auto) 0.6 % (0.0-2.0); Eosinophils # (auto) 0.4 10 ^3/uL (0-0.8); Lymphocytes # (auto) 1.6 10 ^3/uL (0.4-5.4); Monocytes # (auto) 0.4 10 ^3/uL (0-1.3); Red Cell Distribution Width 14.2 % (11.8-14.3)
[2020-02-05 10:28] LABS: Eosinophils % (auto) 5.3 % (0.0-7.0); Hematocrit 34.6 % (41.0-53.0); Hemoglobin 11.4 g/dL (13.5-17.5); Lymphocytes % (auto) 22.1 % (10.0-50.0); Mean Corpuscular Hemoglobin 25.2 pg (28.0-32.0); Mean Corpuscular Volume 76.5 fL (80.0-100.0); Neutrophils # (auto) 4.9 10 ^3/uL (1.6-8.6); Platelet Count (auto) 364 10^3/uL (140-450); Red Blood Cells 4.52 10^6/uL (4.5-5.90); White Blood Cell 7.4 10^3/uL (4.4-10.8)
[2020-02-05 10:36] LABS: Calcium 8.1 mg/dL (8.5-10.1); Potassium 3.7 mmol/L (3.5-5.1)
[2020-02-05 10:39] LABS: BUN/Creatinine Ratio 21.2
[2020-02-05 13:00] VITALS: BP 120/72
[2020-02-05] MEDS ORDERED: DEXTROSE (50%) 50ML SYRG IV PRN (18:00)
[2020-02-05 22:00] VITALS: BP 129/77
[2020-02-05] MEDS ORDERED: ATORVASTATIN 20 MG TAB PO SCH (22:00)
[2020-02-05] MEDS ORDERED: SENNA 8.6 MG TAB PO SCH (22:00)
[2020-02-06] MEDS: ACCU-CHEK COMFORT CURVE STRIP VI SCH ×3 (00:32→13:05)
[2020-02-06 05:00] VITALS: BP 117/83
[2020-02-06] MEDS: InsuLIN REG 1unit/0.01ml Soln (100units/ml) SC SCH ×3 (05:53→12:00)
[2020-02-06] MEDS: SODIUM CHLORIDE 0.9% 1,000 ML IV SCH ×2 (05:54→15:10)
[2020-02-06 06:38] LABS: Basophils # (auto) 0.1 10 ^3/uL (0-0.2); Basophils % (auto) 0.8 % (0.0-2.0); Eosinophils # (auto) 0.5 10 ^3/uL (0-0.8); Eosinophils % (auto) 5.9 % (0.0-7.0); Hematocrit 36.5 % (41.0-53.0); Hemoglobin 11.9 g/dL (13.5-17.5); Lymphocytes # (auto) 1.5 10 ^3/uL (0.4-5.4); Lymphocytes % (auto) 17.5 % (10.0-50.0); Mean Corpuscular Hemoglobin 24.8 pg (28.0-32.0); Mean Corpuscular Hgb Conc. 32.6 g/dL (32.0-36.0); Monocytes # (auto) 0.5 10 ^3/uL (0-1.3); Monocytes % (auto) 6.6 % (0.0-12.0); Neutrophils # (auto) 5.8 10 ^3/uL (1.6-8.6); Neutrophils % (auto) 69.2 % (37.0-80.0); Platelet Count (auto) 378 10^3/uL (140-450); Red Blood Cells 4.81 10^6/uL (4.5-5.90); Red Cell Distribution Width 14.1 % (11.8-14.3); White Blood Cell 8.4 10^3/uL (4.4-10.8)
[2020-02-06 06:52] LABS: INR 1.06 (0.9-1.15); Partial Thromboplastin Time 30.8 sec (23.0-31.2)
[2020-02-06 06:53] LABS: BUN/Creatinine Ratio 15.5; Calcium 8.4 mg/dL (8.5-10.1); Potassium 3.4 mmol/L (3.5-5.1)
[2020-02-06] MEDS: DAKINS HALF STR 0.25% (NaHypochlorite) 473 ML TOPICAL SOL TOP SCH (08:54)
[2020-02-06] MEDS: cefTRIAXone 1GM/50ML D5W 50 ML IV SCH (08:54)
[2020-02-06 09:00] VITALS: BP 121/73
[2020-02-06] MEDS ORDERED: CIPR-173 PO (11:45)
[2020-02-06 12:34] VITALS: BP 121/73
[2020-02-06 15:09] VITALS: BP 117/83
== END 2020-02-06 16:05 | disposition home health service (06) | DRG 699 ==
LOC: EDBD 16:57 → ER 16:57 → TELE-WESTW 16:58
PROVIDERS: ADMIT Hospitalist; ATTEND Hospitalist
DX: T83.511A Infection and inflammatory reaction due to indwelling urethral catheter, initial encounter (principal); N17.9 Acute kidney failure, unspecified; N39.0 Urinary tract infection, site not specified; R31.0 Gross hematuria; N40.0 Benign prostatic hyperplasia without lower urinary tract symptoms; E11.65 Type 2 diabetes mellitus with hyperglycemia; I10 Essential (primary) hypertension; K59.00 Constipation, unspecified; E78.5 Hyperlipidemia, unspecified; F41.9 Anxiety disorder, unspecified; M43.16 Spondylolisthesis, lumbar region; F32.9 Major depressive disorder, single episode, unspecified; K21.9 Gastro-esophageal reflux disease without esophagitis; Y73.8 Miscellaneous gastroenterology and urology devices associated with adverse incidents, not elsewhere classified; Y84.6 Urinary catheterization as the cause of abnormal reaction of the patient, or of later complication, without mention of misadventure at the time of the procedure; Z83.3 Family history of diabetes mellitus; Z86.73 Personal history of transient ischemic attack (TIA), and cerebral infarction without residual deficits; Z90.49 Acquired absence of other specified parts of digestive tract; Y83.8 Other surgical procedures as the cause of abnormal reaction of the patient, or of later complication, without mention of misadventure at the time of the procedure; Y92.89 Other specified places as the place of occurrence of the external cause
CPT/HCPCS: 36415; 74176; 76705; 80048; 80053; 80061; 81001; 82962; 83036; 84484; 85025; 85610; 85730; 93005; G0378; J0696; J1815

== ENCOUNTER 2020-06-03 10:42 | Inpatient (IN) | payer OTHER ==
[~2020-06-03] VITALS: Ht 167.6 cm; Wt 88.0 kg
[~2020-06-03 10:42] MED LIST changes: -AZIL40TA2 PO; +CIPR-173 PO; -ERTU15TA PO; -INSLANTI SC; -LEVO-28 PO; -METF-490 PO; -NIAC500T93 PO; -PIO30T PO
[2020-06-03] MEDS ORDERED: SODIUM CHLORIDE 0.9% 500 ML IV ONE (11:15)
[2020-06-03 12:29] LABS: Basophils # (auto) 0 10 ^3/uL (0-0.2); Basophils % (auto) 0.4 % (0.0-2.0); Eosinophils # (auto) 0.1 10 ^3/uL (0-0.8); Mean Corpuscular Hemoglobin 25.3 pg (28.0-32.0); Monocytes # (auto) 0.6 10 ^3/uL (0-1.3); Monocytes % (auto) 6.7 % (0.0-12.0)
[2020-06-03 12:31] LABS: Eosinophils % (auto) 0.8 % (0.0-7.0); Hematocrit 38.1 % (41.0-53.0); Hemoglobin 12.7 g/dL (13.5-17.5); Lymphocytes % (auto) 11.1 % (10.0-50.0); Mean Corpuscular Hgb Conc. 33.2 g/dL (32.0-36.0); Neutrophils # (auto) 7.4 10 ^3/uL (1.6-8.6); Nucleated Red Blood Cells % 0.1 %; Red Cell Distribution Width 15.4 % (11.8-14.3); White Blood Cell 9.2 10^3/uL (4.4-10.8)
[2020-06-03 12:40] LABS: Albumin 2.9 g/dL (3.4-5.0); Anion Gap 9 (5-15); Blood Urea Nitrogen 24 mg/dL (7-18); Calcium 9.1 mg/dL (8.5-10.1); Carbon Dioxide 25 mmol/L (21-32); Chloride 104 mmol/L (98-107); Glucose 189 mg/dL (74-106); Potassium 3.5 mmol/L (3.5-5.1); Sodium 138 mmol/L (136-145)
[2020-06-03 12:48] LABS: Alanine Aminotransferase 24 U/L (16-61); Alkaline Phosphatase 144 U/L (45-117); Aspartate Aminotransferase 35 U/L (15-37); BUN/Creatinine Ratio 27.6; Bilirubin, Total 0.5 mg/dL (0.2-1.0); GFR African American 113 mL/min; GFR Non-African American 94 mL/min
[2020-06-03 12:59] LABS: Urine Bacteria MOD /hpf (None Seen); Urine Blood 2+ /uL (Negative); Urine Mucus FEW (None Seen); Urine Specific Gravity 1.027 (1.001-1.035); Urine WBC 53 /hpf (0 - 3)
[2020-06-03 13:02] LABS: CRP High Sensitivity > 19.0 mg/dL (< 0.3)
[2020-06-03] MEDS ORDERED: DexAMETHasone INJECTION 10 MG in D5W 5% 50 ML IV ONE (13:30)
[2020-06-03] MEDS ORDERED: NITROGLYCERIN 0.4 MG SL TAB SL PRN (13:30)
[2020-06-03] MEDS ORDERED: MORPHINE SULFATE INJECTION 2 MG/ML SYRG IV PRN ×2 (13:30→14:00)
[2020-06-03] MEDS ORDERED: ALBUTEROL SULF HFA 90MCG INH 200DOSE IN PRN (13:30)
[2020-06-03] MEDS ORDERED: REMDESIVIR PER PHARMACY IV SCH (13:30)
[2020-06-03] MEDS ORDERED: cefTRIAXone 1GM/50ML D5W 50 ML IV ONE (13:30)
[2020-06-03] MEDS ORDERED: traMADol HCL 50 MG TAB PO PRN (14:00)
[2020-06-03] MEDS ORDERED: DEXTROSE (50%) 50ML SYRG IV PRN (14:00)
[2020-06-03] MEDS: SODIUM CHLORIDE 0.9% 1,000 ML IV SCH (14:00)
[2020-06-03] MEDS ORDERED: ALBUTEROL SULF 2.5 MG/0.5ML(0.5%) NEB SOLN NEB PRN (14:00)
[2020-06-03] MEDS: DOXYCYCLINE 100MG/250ML 250 ML IV SCH (14:00)
[2020-06-03] MEDS ORDERED: LACTULOSE 20Gm/30ML SOLN PO PRN (14:00)
[2020-06-03] MEDS ORDERED: ONDANSETRON HCL 4 MG/2 ML VIAL IV PRN (14:00)
[2020-06-03] MEDS: ACCU-CHEK COMFORT CURVE STRIP VI SCH ×2 (16:49→21:51)
[2020-06-03] MEDS: InsuLIN REG 1unit/0.01ml Soln (100units/ml) SC SCH ×2 (16:49→21:51)
[2020-06-03] MEDS: IPRATROPIUM BROM 0.5 MG/2.5ML INH SOL NEB SCH (18:00)
[2020-06-03] MEDS: ALBUTEROL SULF 2.5 MG/0.5ML(0.5%) NEB SOLN NEB SCH (19:00)
[2020-06-03] MEDS: FAMOTIDINE 20 MG TAB PO SCH (21:41)
[2020-06-03] MEDS: ENOXAPARIN SOD 40 MG/0.4 ML SYRINGE SC SCH (21:51)
[2020-06-04] MEDS: BUDESONIDE (INHALATION) 180 MCG IH IN SCH ×3 (00:08→19:42)
[2020-06-04] MEDS: IPRATROPIUM BROM 0.5 MG/2.5ML INH SOL NEB SCH ×2 (00:15)
[2020-06-04] MEDS: ALBUTEROL SULF 2.5 MG/0.5ML(0.5%) NEB SOLN NEB SCH ×2 (00:15)
[2020-06-04] MEDS: DOXYCYCLINE 100MG/250ML 250 ML IV SCH ×2 (02:07→15:02)
[2020-06-04] MEDS: SODIUM CHLORIDE 0.9% 1,000 ML IV SCH ×2 (03:37→17:56)
[2020-06-04 05:37] LABS: Basophils # (auto) 0 10 ^3/uL (0-0.2); Eosinophils # (auto) 0 10 ^3/uL (0-0.8); Hematocrit 36.3 % (41.0-53.0); Hemoglobin 11.7 g/dL (13.5-17.5); Lymphocytes # (auto) 0.7 10 ^3/uL (0.4-5.4); Lymphocytes % (auto) 10.5 % (10.0-50.0); Mean Corpuscular Hemoglobin 24.6 pg (28.0-32.0); Mean Corpuscular Hgb Conc. 32.3 g/dL (32.0-36.0); Mean Corpuscular Volume 76.4 fL (80.0-100.0); Monocytes # (auto) 0.2 10 ^3/uL (0-1.3); Monocytes % (auto) 3.4 % (0.0-12.0); Neutrophils # (auto) 5.7 10 ^3/uL (1.6-8.6); Neutrophils % (auto) 86.1 % (37.0-80.0); Nucleated Red Blood Cells % 0.1 %; Red Blood Cells 4.75 10^6/uL (4.5-5.90); Red Cell Distribution Width 15.7 % (11.8-14.3); White Blood Cell 6.6 10^3/uL (4.4-10.8)
[2020-06-04 06:03] LABS: Potassium 3.5 mmol/L (3.5-5.1)
[2020-06-04 06:09] LABS: Albumin 2.6 g/dL (3.4-5.0); BUN/Creatinine Ratio 26.9; Bilirubin, Total 0.5 mg/dL (0.2-1.0); Calcium 8.9 mg/dL (8.5-10.1); Total Protein 7.6 g/dL (6.4-8.2)
[2020-06-04] MEDS: ACCU-CHEK COMFORT CURVE STRIP VI SCH ×4 (06:37→22:30)
[2020-06-04] MEDS: InsuLIN REG 1unit/0.01ml Soln (100units/ml) SC SCH ×4 (06:38→23:00)
[2020-06-04] MEDS: cefTRIAXone 1GM/50ML D5W 50 ML IV SCH (10:08)
[2020-06-04] MEDS: ZINC SULFATE 220mg CAP or TAB PO SCH (10:09)
[2020-06-04] MEDS: FAMOTIDINE 20 MG TAB PO SCH ×2 (10:09→22:30)
[2020-06-04] MEDS: ASCORBIC ACID 1,000 MG TAB PO SCH (10:09)
[2020-06-04] MEDS: DexAMETHasone SOD PHOS 10MG/1ML VIAL INJ IV SCH (10:09)
[2020-06-04] MEDS: CHOLECALCIFEROL (VITD3) 2,000 UNIT CAP/TAB PO SCH (10:09)
[2020-06-04] MEDS: ENOXAPARIN SOD 40 MG/0.4 ML SYRINGE SC SCH ×2 (12:12→22:30)
[2020-06-04] MEDS ORDERED: LORazepam 2MG/ML-1ML VIAL IV ONE (15:15)
[2020-06-04] MEDS ORDERED: REMDESIVIR 200 MG in NS 210ml LOADING DOSE ADULT IV ONE (17:00)
[2020-06-04] MEDS: LORazepam 2MG/ML-1ML VIAL IV PRN (19:07)
[2020-06-05] MEDS: DOXYCYCLINE 100MG/250ML 250 ML IV SCH ×2 (03:00→13:50)
[2020-06-05] MEDS ORDERED: ETOMIDATE (2MG/ML) 20ML VIAL IV ONE (04:47)
[2020-06-05] MEDS ORDERED: SUCCINYLCHOLINE CHLORIDE 20 MG/ML 10ML VIAL IV ONE (04:47)
[2020-06-05] MEDS ORDERED: PROPOFOL 100 ML IV ONE (05:05)
[2020-06-05] MEDS: PROPOFOL 100 ML IV SCH ×2 (05:15→22:00)
[2020-06-05 05:23] VITALS: BP 177/95
[2020-06-05 07:30] VITALS: BP 130/77
[2020-06-05] MEDS: SODIUM CHLORIDE 0.9% 1,000 ML IV SCH ×2 (07:30→19:44)
[2020-06-05] MEDS: InsuLIN REG 1unit/0.01ml Soln (100units/ml) SC SCH ×4 (07:30→22:40)
[2020-06-05] MEDS: ACCU-CHEK COMFORT CURVE STRIP VI SCH ×4 (07:30→22:29)
[2020-06-05] MEDS ORDERED: fentaNYL Drip 2500mCg/250mlNS 250 ML IV ONE (07:42)
[2020-06-05] MEDS: fentaNYL Drip 2500mCg/250mlNS 250 ML IV SCH (07:45)
[2020-06-05 09:58] LABS: Basophils # (auto) 0 10 ^3/uL (0-0.2); Eosinophils # (auto) 0 10 ^3/uL (0-0.8); Lymphocytes # (auto) 0.8 10 ^3/uL (0.4-5.4); Lymphocytes % (auto) 7.4 % (10.0-50.0); Nucleated Red Blood Cells % 0.1 %
[2020-06-05] MEDS: cefTRIAXone 1GM/50ML D5W 50 ML IV SCH (10:00)
[2020-06-05] MEDS: BUDESONIDE (INHALATION) 180 MCG IH IN SCH (10:00)
[2020-06-05 10:01] LABS: Basophils % (auto) 0.1 % (0.0-2.0); Hematocrit 33.7 % (41.0-53.0); Mean Corpuscular Hemoglobin 24.6 pg (28.0-32.0); Mean Corpuscular Hgb Conc. 32.5 g/dL (32.0-36.0); Mean Corpuscular Volume 75.8 fL (80.0-100.0); Monocytes % (auto) 8.9 % (0.0-12.0); Neutrophils # (auto) 9.3 10 ^3/uL (1.6-8.6); Neutrophils % (auto) 83.6 % (37.0-80.0); Red Blood Cells 4.45 10^6/uL (4.5-5.90); Red Cell Distribution Width 15.5 % (11.8-14.3); White Blood Cell 11.1 10^3/uL (4.4-10.8)
[2020-06-05 10:13] LABS: Albumin 2.6 g/dL (3.4-5.0); Calcium 9.1 mg/dL (8.5-10.1); Potassium 3.6 mmol/L (3.5-5.1)
[2020-06-05 10:25] LABS: BUN/Creatinine Ratio 39.7; Bilirubin, Total 0.4 mg/dL (0.2-1.0); CRP High Sensitivity 11.4 mg/dL (< 0.3)
[2020-06-05] MEDS: DexAMETHasone SOD PHOS 10MG/1ML VIAL INJ IV SCH (10:27)
[2020-06-05] MEDS: FAMOTIDINE 20 MG TAB PO SCH ×2 (10:28→22:28)
[2020-06-05] MEDS: CHOLECALCIFEROL (VITD3) 2,000 UNIT CAP/TAB PO SCH (10:28)
[2020-06-05] MEDS: ENOXAPARIN SOD 40 MG/0.4 ML SYRINGE SC SCH ×2 (10:28→22:29)
[2020-06-05] MEDS: ASCORBIC ACID 1,000 MG TAB PO SCH (10:28)
[2020-06-05] MEDS: ZINC SULFATE 220mg CAP or TAB PO SCH (10:28)
[2020-06-05 11:12] VITALS: BP 114/74
[2020-06-05 14:25] VITALS: BP 104/66
[2020-06-05] MEDS: ALBUTEROL SULF 2.5 MG/0.5ML(0.5%) NEB SOLN NEB SCH ×2 (14:25→22:00)
[2020-06-05] MEDS: REMDESIVIR 100 MG in SODIUM CHL 0.9% 250 ML IV SCH (17:23)
[2020-06-05 19:21] VITALS: BP 109/74
[2020-06-05 21:51] VITALS: BP 97/61
[2020-06-05] MEDS: BUDESONIDE (INHALATION) 0.5 MG/2 ML NEB NEB SCH (22:00)
[2020-06-06 02:25] VITALS: BP 91/56
[2020-06-06] MEDS: DOXYCYCLINE 100MG/250ML 250 ML IV SCH ×2 (03:17→14:34)
[2020-06-06 05:50] VITALS: BP 108/63
[2020-06-06] MEDS: ALBUTEROL SULF 2.5 MG/0.5ML(0.5%) NEB SOLN NEB SCH ×3 (05:50→21:53)
[2020-06-06] MEDS: BUDESONIDE (INHALATION) 0.5 MG/2 ML NEB NEB SCH ×2 (05:50→21:53)
[2020-06-06 05:55] LABS: Basophils # (auto) 0 10 ^3/uL (0-0.2); Eosinophils # (auto) 0 10 ^3/uL (0-0.8); Hemoglobin 9.8 g/dL (13.5-17.5); Lymphocytes # (auto) 0.6 10 ^3/uL (0.4-5.4); Monocytes # (auto) 0.6 10 ^3/uL (0-1.3); Neutrophils # (auto) 5.5 10 ^3/uL (1.6-8.6); Red Cell Distribution Width 15.5 % (11.8-14.3); White Blood Cell 6.7 10^3/uL (4.4-10.8)
[2020-06-06 05:57] LABS: Basophils % (auto) 0.1 % (0.0-2.0); Hematocrit 30.4 % (41.0-53.0); Lymphocytes % (auto) 8.7 % (10.0-50.0); Mean Corpuscular Hemoglobin 24.8 pg (28.0-32.0); Mean Corpuscular Hgb Conc. 32.4 g/dL (32.0-36.0); Mean Corpuscular Volume 76.5 fL (80.0-100.0); Monocytes % (auto) 9.4 % (0.0-12.0); Neutrophils % (auto) 81.8 % (37.0-80.0); Red Blood Cells 3.97 10^6/uL (4.5-5.90)
[2020-06-06 06:28] LABS: Albumin 2.3 g/dL (3.4-5.0); BUN/Creatinine Ratio 45.5; Bilirubin, Total 0.3 mg/dL (0.2-1.0); CRP High Sensitivity 6.45 mg/dL (< 0.3); Calcium 8.4 mg/dL (8.5-10.1); Total Protein 6.3 g/dL (6.4-8.2)
[2020-06-06] MEDS: InsuLIN REG 1unit/0.01ml Soln (100units/ml) SC SCH ×4 (07:00→22:11)
[2020-06-06] MEDS: ACCU-CHEK COMFORT CURVE STRIP VI SCH ×4 (07:00→22:08)
[2020-06-06] MEDS: fentaNYL Drip 2500mCg/250mlNS 250 ML IV SCH ×2 (07:45→21:30)
[2020-06-06] MEDS: SODIUM CHLORIDE 0.9% 1,000 ML IV SCH (09:36)
[2020-06-06] MEDS: cefTRIAXone 1GM/50ML D5W 50 ML IV SCH (09:41)
[2020-06-06 09:47] VITALS: BP 109/66
[2020-06-06] MEDS: ZINC SULFATE 220mg CAP or TAB PO SCH (10:00)
[2020-06-06] MEDS: DexAMETHasone SOD PHOS 10MG/1ML VIAL INJ IV SCH (10:45)
[2020-06-06] MEDS: CHOLECALCIFEROL (VITD3) 2,000 UNIT CAP/TAB PO SCH (10:46)
[2020-06-06] MEDS: ASCORBIC ACID 1,000 MG TAB PO SCH (10:46)
[2020-06-06] MEDS: FAMOTIDINE 20 MG TAB PO SCH ×2 (10:46→22:08)
[2020-06-06] MEDS: ENOXAPARIN SOD 40 MG/0.4 ML SYRINGE SC SCH (10:47)
[2020-06-06] MEDS ORDERED: D5W 5% 1,000 ML IV SCH (11:15)
[2020-06-06] MEDS: INSULIN LANTUS (GLARGINE) 1 /0.01ml (100units/ml) SC SCH (11:15)
[2020-06-06 14:40] VITALS: BP 106/64
[2020-06-06] MEDS: REMDESIVIR 100 MG in SODIUM CHL 0.9% 250 ML IV SCH (16:51)
[2020-06-06] MEDS: D5W 5% 1,000 ML IV SCH (17:29)
[2020-06-06 18:37] VITALS: BP 116/65
[2020-06-06] MEDS: NOREPINEPHRINE 8 MG/250ML KIT 250 ML IV SCH (20:15)
[2020-06-06] MEDS: MIDAZOLAM DRIP 50 mg/50mL 50 ML IV SCH (21:30)
[2020-06-06 21:53] VITALS: BP 136/79
[2020-06-07] MEDS: MIDAZOLAM DRIP 50 mg/50mL 50 ML IV SCH ×3 (00:30→21:15)
[2020-06-07] MEDS: DOXYCYCLINE 100MG/250ML 250 ML IV SCH ×2 (02:19→14:29)
[2020-06-07 02:21] VITALS: BP 108/64
[2020-06-07] MEDS: D5W 5% 1,000 ML IV SCH (03:15)
[2020-06-07] MEDS: PROPOFOL 100 ML IV SCH ×2 (05:15→23:18)
[2020-06-07 05:29] LABS: Basophils # (auto) 0 10 ^3/uL (0-0.2); Basophils % (auto) 0.1 % (0.0-2.0); Eosinophils # (auto) 0 10 ^3/uL (0-0.8); Eosinophils % (auto) 0.1 % (0.0-7.0); Hematocrit 33.8 % (41.0-53.0); Hemoglobin 10.8 g/dL (13.5-17.5); Lymphocytes # (auto) 0.6 10 ^3/uL (0.4-5.4); Lymphocytes % (auto) 7.3 % (10.0-50.0); Mean Corpuscular Hemoglobin 24.5 pg (28.0-32.0); Mean Corpuscular Hgb Conc. 31.8 g/dL (32.0-36.0); Mean Corpuscular Volume 77.1 fL (80.0-100.0); Monocytes # (auto) 0.6 10 ^3/uL (0-1.3); Neutrophils # (auto) 7.4 10 ^3/uL (1.6-8.6); Neutrophils % (auto) 85.5 % (37.0-80.0); Nucleated Red Blood Cells % 0.1 %; Red Blood Cells 4.39 10^6/uL (4.5-5.90); White Blood Cell 8.7 10^3/uL (4.4-10.8)
[2020-06-07 05:55] VITALS: BP 108/64
[2020-06-07] MEDS: ALBUTEROL SULF 2.5 MG/0.5ML(0.5%) NEB SOLN NEB SCH ×3 (05:55→23:23)
[2020-06-07] MEDS: BUDESONIDE (INHALATION) 0.5 MG/2 ML NEB NEB SCH ×2 (05:55→23:29)
[2020-06-07] MEDS: InsuLIN REG 1unit/0.01ml Soln (100units/ml) SC SCH ×4 (06:40→23:25)
[2020-06-07] MEDS: ACCU-CHEK COMFORT CURVE STRIP VI SCH ×4 (06:40→22:50)
[2020-06-07 06:44] LABS: Alkaline Phosphatase 111 U/L (45-117); Anion Gap 7 (5-15); Aspartate Aminotransferase 21 U/L (15-37); BUN/Creatinine Ratio 40.9; Blood Urea Nitrogen 27 mg/dL (7-18); Carbon Dioxide 24 mmol/L (21-32); Chloride 110 mmol/L (98-107); GFR African American 156 mL/min; GFR Non-African American 129 mL/min; Glucose 237 mg/dL (74-106); Potassium 4.3 mmol/L (3.5-5.1); Sodium 141 mmol/L (136-145)
[2020-06-07 06:45] LABS: Alanine Aminotransferase 25 U/L (16-61); Albumin 2.3 g/dL (3.4-5.0); Bilirubin, Total 0.3 mg/dL (0.2-1.0); Calcium 8.2 mg/dL (8.5-10.1); Total Protein 6.4 g/dL (6.4-8.2)
[2020-06-07] MEDS: cefTRIAXone 1GM/50ML D5W 50 ML IV SCH (08:10)
[2020-06-07] MEDS: ZINC SULFATE 220mg CAP or TAB PO SCH (08:13)
[2020-06-07] MEDS: CHOLECALCIFEROL (VITD3) 2,000 UNIT CAP/TAB PO SCH (08:14)
[2020-06-07] MEDS: FAMOTIDINE 20 MG TAB PO SCH ×2 (08:14→22:30)
[2020-06-07] MEDS: ASCORBIC ACID 1,000 MG TAB PO SCH (08:14)
[2020-06-07] MEDS: ENOXAPARIN SOD 40 MG/0.4 ML SYRINGE SC SCH (08:15)
[2020-06-07] MEDS: fentaNYL Drip 2500mCg/250mlNS 250 ML IV SCH (09:33)
[2020-06-07 09:58] VITALS: BP 103/65
[2020-06-07] MEDS: DexAMETHasone SOD PHOS 10MG/1ML VIAL INJ IV SCH (11:46)
[2020-06-07] MEDS: INSULIN LANTUS (GLARGINE) 1 /0.01ml (100units/ml) SC SCH (11:47)
[2020-06-07 13:55] VITALS: BP 106/61
[2020-06-07] MEDS: REMDESIVIR 100 MG in SODIUM CHL 0.9% 250 ML IV SCH (17:15)
[2020-06-07 18:01] VITALS: BP 103/58
[2020-06-07] MEDS: NOREPINEPHRINE 8 MG/250ML KIT 250 ML IV SCH (20:12)
[2020-06-07 22:18] VITALS: BP 111/60
[2020-06-08] MEDS: DOXYCYCLINE 100MG/250ML 250 ML IV SCH ×2 (03:05→14:08)
[2020-06-08] MEDS: ALBUTEROL SULF 2.5 MG/0.5ML(0.5%) NEB SOLN NEB SCH ×3 (06:00→18:30)
[2020-06-08 06:24] LABS: Basophils # (auto) 0 10 ^3/uL (0-0.2); Eosinophils # (auto) 0 10 ^3/uL (0-0.8); Hematocrit 32.1 % (41.0-53.0); Monocytes # (auto) 0.5 10 ^3/uL (0-1.3)
[2020-06-08 06:27] LABS: Hemoglobin 10.4 g/dL (13.5-17.5); Lymphocytes # (auto) 0.6 10 ^3/uL (0.4-5.4); Lymphocytes % (auto) 7.1 % (10.0-50.0); Mean Corpuscular Hemoglobin 24.9 pg (28.0-32.0); Mean Corpuscular Hgb Conc. 32.4 g/dL (32.0-36.0); Mean Corpuscular Volume 76.7 fL (80.0-100.0); Monocytes % (auto) 5.1 % (0.0-12.0); Neutrophils # (auto) 7.8 10 ^3/uL (1.6-8.6); Neutrophils % (auto) 87.8 % (37.0-80.0); Nucleated Red Blood Cells % 0.2 %; Red Blood Cells 4.19 10^6/uL (4.5-5.90); Red Cell Distribution Width 15.3 % (11.8-14.3); White Blood Cell 8.9 10^3/uL (4.4-10.8)
[2020-06-08 06:43] LABS: Potassium 4.5 mmol/L (3.5-5.1)
[2020-06-08 06:53] LABS: Albumin 2.2 g/dL (3.4-5.0); BUN/Creatinine Ratio 39.7; Bilirubin, Total 0.2 mg/dL (0.2-1.0)
[2020-06-08] MEDS: ACCU-CHEK COMFORT CURVE STRIP VI SCH ×4 (07:00→22:00)
[2020-06-08] MEDS: InsuLIN REG 1unit/0.01ml Soln (100units/ml) SC SCH ×4 (07:00→22:00)
[2020-06-08 07:46] VITALS: BP 108/56
[2020-06-08] MEDS: fentaNYL Drip 2500mCg/250mlNS 250 ML IV SCH (08:08)
[2020-06-08] MEDS: cefTRIAXone 1GM/50ML D5W 50 ML IV SCH (09:53)
[2020-06-08] MEDS: DexAMETHasone SOD PHOS 10MG/1ML VIAL INJ IV SCH (09:54)
[2020-06-08] MEDS: ZINC SULFATE 220mg CAP or TAB PO SCH (09:54)
[2020-06-08] MEDS: ASCORBIC ACID 1,000 MG TAB PO SCH (09:54)
[2020-06-08] MEDS: FAMOTIDINE 20 MG TAB PO SCH ×2 (09:54→22:25)
[2020-06-08] MEDS: CHOLECALCIFEROL (VITD3) 2,000 UNIT CAP/TAB PO SCH (09:55)
[2020-06-08] MEDS: INSULIN LANTUS (GLARGINE) 1 /0.01ml (100units/ml) SC SCH (09:56)
[2020-06-08] MEDS: ENOXAPARIN SOD 40 MG/0.4 ML SYRINGE SC SCH (09:56)
[2020-06-08] MEDS: BUDESONIDE (INHALATION) 0.5 MG/2 ML NEB NEB SCH ×2 (10:00→18:30)
[2020-06-08 11:07] LABS: INR 1.15 (0.9-1.15); Partial Thromboplastin Time 27.1 sec (23.0-31.2)
[2020-06-08 14:44] VITALS: BP 98/57
[2020-06-08] MEDS: REMDESIVIR 100 MG in SODIUM CHL 0.9% 250 ML IV SCH (17:00)
[2020-06-08 18:30] VITALS: BP 94/54
[2020-06-08] MEDS ORDERED: FOLIC ACID 1 MG, MULTIPLE VITAMIN 10 ML, MAGNESIUM SULF SDV 50% 8 MEQ, THIAMINE INJ 100... INJ SCH ×5 (18:45)
[2020-06-08] MEDS: NOREPINEPHRINE 8 MG/250ML KIT 250 ML IV SCH (20:15)
[2020-06-08 22:45] VITALS: BP 98/53
[2020-06-09] VITALS (52 sets, daily range): BP systolic 82–127; BP diastolic 28–62
[2020-06-09] MEDS: DOXYCYCLINE 100MG/250ML 250 ML IV SCH ×2 (01:55→13:45)
[2020-06-09] MEDS: MIDAZOLAM DRIP 50 mg/50mL 50 ML IV SCH ×4 (02:04→20:09)
[2020-06-09] MEDS ORDERED: ACETAMINOPHEN 650 mg PER 20.3 mL UD ONE (02:16)
[2020-06-09] MEDS: ACETAMINOPHEN 650 mg PER 20.3 mL UD PO PRN ×3 (02:31→18:38)
[2020-06-09] MEDS: NOREPINEPHRINE 8 MG/250ML KIT 250 ML IV SCH ×2 (03:00→20:29)
[2020-06-09] MEDS: PROPOFOL 100 ML IV SCH (05:15)
[2020-06-09 05:55] LABS: Basophils # (auto) 0 10 ^3/uL (0-0.2); Basophils % (auto) 0.1 % (0.0-2.0); Eosinophils # (auto) 0.2 10 ^3/uL (0-0.8); Eosinophils % (auto) 1.6 % (0.0-7.0); Hemoglobin 12.2 g/dL (13.5-17.5); Lymphocytes # (auto) 1.3 10 ^3/uL (0.4-5.4); Lymphocytes % (auto) 10.1 % (10.0-50.0); Mean Corpuscular Hemoglobin 24.6 pg (28.0-32.0); Mean Corpuscular Volume 76.7 fL (80.0-100.0); Monocytes # (auto) 0.4 10 ^3/uL (0-1.3); Monocytes % (auto) 2.7 % (0.0-12.0); Neutrophils # (auto) 11.2 10 ^3/uL (1.6-8.6); Neutrophils % (auto) 85.5 % (37.0-80.0); Nucleated Red Blood Cells % 0.3 %; Red Blood Cells 4.95 10^6/uL (4.5-5.90); Red Cell Distribution Width 15.3 % (11.8-14.3); White Blood Cell 13.1 10^3/uL (4.4-10.8)
[2020-06-09] MEDS: ALBUTEROL SULF 2.5 MG/0.5ML(0.5%) NEB SOLN NEB SCH ×2 (06:00→22:00)
[2020-06-09 06:12] LABS: Albumin 2.3 g/dL (3.4-5.0); Calcium 8.2 mg/dL (8.5-10.1); Potassium 3.8 mmol/L (3.5-5.1)
[2020-06-09 06:16] LABS: BUN/Creatinine Ratio 35.8; Bilirubin, Total 0.5 mg/dL (0.2-1.0); Total Protein 6.2 g/dL (6.4-8.2)
[2020-06-09] MEDS: InsuLIN REG 1unit/0.01ml Soln (100units/ml) SC SCH ×4 (06:22→21:57)
[2020-06-09] MEDS: ACCU-CHEK COMFORT CURVE STRIP VI SCH ×4 (06:43→21:51)
[2020-06-09] MEDS: fentaNYL Drip 2500mCg/250mlNS 250 ML IV SCH (06:44)
[2020-06-09] MEDS: cefTRIAXone 1GM/50ML D5W 50 ML IV SCH (09:10)
[2020-06-09] MEDS: DexAMETHasone SOD PHOS 10MG/1ML VIAL INJ IV SCH (10:22)
[2020-06-09] MEDS: FAMOTIDINE 20 MG TAB PO SCH ×2 (10:23→21:56)
[2020-06-09] MEDS: ASCORBIC ACID 1,000 MG TAB PO SCH (10:23)
[2020-06-09] MEDS: BUDESONIDE (INHALATION) 0.5 MG/2 ML NEB NEB SCH ×2 (10:23→22:00)
[2020-06-09] MEDS: CHOLECALCIFEROL (VITD3) 2,000 UNIT CAP/TAB PO SCH (10:23)
[2020-06-09] MEDS: ZINC SULFATE 220mg CAP or TAB PO SCH (10:23)
[2020-06-09] MEDS: INSULIN LANTUS (GLARGINE) 1 /0.01ml (100units/ml) SC SCH (10:24)
[2020-06-09] MEDS: ENOXAPARIN SOD 40 MG/0.4 ML SYRINGE SC SCH (10:24)
[2020-06-10] MEDS: MIDAZOLAM DRIP 50 mg/50mL 50 ML IV SCH ×2 (00:32→05:06)
[2020-06-10] MEDS: DOXYCYCLINE 100MG/250ML 250 ML IV SCH ×2 (01:48→14:35)
[2020-06-10 02:15] VITALS: BP 130/58
[2020-06-10] MEDS: PROPOFOL 100 ML IV SCH ×2 (05:15→23:48)
[2020-06-10 05:30] LABS: Basophils # (auto) 0.1 10 ^3/uL (0-0.2); Eosinophils # (auto) 0 10 ^3/uL (0-0.8); Hemoglobin 11.9 g/dL (13.5-17.5); Lymphocytes # (auto) 0.7 10 ^3/uL (0.4-5.4)
[2020-06-10 05:32] LABS: Basophils % (auto) 0.6 % (0.0-2.0); Hematocrit 35.8 % (41.0-53.0); Lymphocytes % (auto) 4.1 % (10.0-50.0); Mean Corpuscular Hemoglobin 25.2 pg (28.0-32.0); Mean Corpuscular Hgb Conc. 33.3 g/dL (32.0-36.0); Mean Corpuscular Volume 75.5 fL (80.0-100.0); Monocytes # (auto) 0.5 10 ^3/uL (0-1.3); Monocytes % (auto) 2.9 % (0.0-12.0); Neutrophils # (auto) 14.8 10 ^3/uL (1.6-8.6); Neutrophils % (auto) 92.4 % (37.0-80.0); Nucleated Red Blood Cells % 0.1 %; Red Blood Cells 4.74 10^6/uL (4.5-5.90); Red Cell Distribution Width 15.3 % (11.8-14.3)
[2020-06-10 05:58] LABS: Calcium 8.4 mg/dL (8.5-10.1); Potassium 4.3 mmol/L (3.5-5.1)
[2020-06-10] MEDS: ALBUTEROL SULF 2.5 MG/0.5ML(0.5%) NEB SOLN NEB SCH ×3 (06:00→23:09)
[2020-06-10 06:02] LABS: Bilirubin, Total 0.4 mg/dL (0.2-1.0); Total Protein 6.3 g/dL (6.4-8.2)
[2020-06-10] MEDS: ACCU-CHEK COMFORT CURVE STRIP VI SCH ×4 (06:09→21:39)
[2020-06-10] MEDS: InsuLIN REG 1unit/0.01ml Soln (100units/ml) SC SCH ×4 (06:17→21:41)
[2020-06-10 07:00] VITALS: BP 124/66
[2020-06-10] MEDS: fentaNYL Drip 2500mCg/250mlNS 250 ML IV SCH ×2 (08:12→19:19)
[2020-06-10] MEDS: BUDESONIDE (INHALATION) 0.5 MG/2 ML NEB NEB SCH ×2 (08:40→23:08)
[2020-06-10] MEDS: cefTRIAXone 1GM/50ML D5W 50 ML IV SCH (08:49)
[2020-06-10] MEDS: DexAMETHasone SOD PHOS 10MG/1ML VIAL INJ IV SCH (10:00)
[2020-06-10] MEDS: FAMOTIDINE 20 MG TAB PO SCH ×2 (10:00→21:39)
[2020-06-10] MEDS: ASCORBIC ACID 1,000 MG TAB PO SCH (10:00)
[2020-06-10] MEDS: ZINC SULFATE 220mg CAP or TAB PO SCH (10:00)
[2020-06-10] MEDS: CHOLECALCIFEROL (VITD3) 2,000 UNIT CAP/TAB PO SCH (10:00)
[2020-06-10] MEDS: ENOXAPARIN SOD 40 MG/0.4 ML SYRINGE SC SCH (10:00)
[2020-06-10] MEDS: INSULIN LANTUS (GLARGINE) 1 /0.01ml (100units/ml) SC SCH (11:18)
[2020-06-10 14:10] VITALS: BP 97/48
[2020-06-10] MEDS: MEROPENEM 1GM IVPB 100 ML IV SCH ×2 (17:57→21:20)
[2020-06-10 18:20] VITALS: BP 118/58
[2020-06-10] MEDS: ACETAMINOPHEN 650 mg PER 20.3 mL UD PO PRN (21:42)
[2020-06-10 22:30] VITALS: BP 107/73
[2020-06-11 02:19] VITALS: BP 112/58
[2020-06-11] MEDS: ACCU-CHEK COMFORT CURVE STRIP VI SCH ×4 (05:25→21:00)
[2020-06-11] MEDS: InsuLIN REG 1unit/0.01ml Soln (100units/ml) SC SCH ×4 (05:26→21:01)
[2020-06-11] MEDS: MEROPENEM 1GM IVPB 100 ML IV SCH ×3 (05:31→21:00)
[2020-06-11] MEDS: BUDESONIDE (INHALATION) 0.5 MG/2 ML NEB NEB SCH ×2 (06:12→22:00)
[2020-06-11] MEDS: ALBUTEROL SULF 2.5 MG/0.5ML(0.5%) NEB SOLN NEB SCH ×3 (06:12→22:00)
[2020-06-11 06:30] VITALS: BP 103/55
[2020-06-11 08:20] LABS: Eosinophils # (auto) 0 10 ^3/uL (0-0.8); Hemoglobin 10.4 g/dL (13.5-17.5); Mean Corpuscular Hgb Conc. 32.5 g/dL (32.0-36.0); Nucleated Red Blood Cells % 0.2 %; Red Cell Distribution Width 15.2 % (11.8-14.3)
[2020-06-11 08:22] LABS: Basophils # (auto) 0.5 10 ^3/uL (0-0.2); Basophils % (auto) 3.8 % (0.0-2.0); Eosinophils % (auto) 0.1 % (0.0-7.0); Hematocrit 31.9 % (41.0-53.0); Lymphocytes # (auto) 0.6 10 ^3/uL (0.4-5.4); Lymphocytes % (auto) 5.3 % (10.0-50.0); Mean Corpuscular Hemoglobin 24.5 pg (28.0-32.0); Mean Corpuscular Volume 75.5 fL (80.0-100.0); Monocytes # (auto) 0.6 10 ^3/uL (0-1.3); Monocytes % (auto) 4.5 % (0.0-12.0); Neutrophils # (auto) 10.6 10 ^3/uL (1.6-8.6); Neutrophils % (auto) 86.3 % (37.0-80.0); Red Blood Cells 4.23 10^6/uL (4.5-5.90); White Blood Cell 12.3 10^3/uL (4.4-10.8)
[2020-06-11 08:34] LABS: Potassium 4.6 mmol/L (3.5-5.1)
[2020-06-11 08:39] LABS: Albumin 1.9 g/dL (3.4-5.0); BUN/Creatinine Ratio 36.4; Bilirubin, Total 0.3 mg/dL (0.2-1.0); Calcium 8.2 mg/dL (8.5-10.1); Total Protein 5.7 g/dL (6.4-8.2)
[2020-06-11] MEDS: ZINC SULFATE 220mg CAP or TAB PO SCH (10:00)
[2020-06-11] MEDS: CHOLECALCIFEROL (VITD3) 2,000 UNIT CAP/TAB PO SCH (10:00)
[2020-06-11] MEDS: DexAMETHasone SOD PHOS 10MG/1ML VIAL INJ IV SCH (10:00)
[2020-06-11] MEDS: ENOXAPARIN SOD 40 MG/0.4 ML SYRINGE SC SCH (10:00)
[2020-06-11] MEDS: INSULIN LANTUS (GLARGINE) 1 /0.01ml (100units/ml) SC SCH (10:00)
[2020-06-11] MEDS: ASCORBIC ACID 1,000 MG TAB PO SCH (10:00)
[2020-06-11] MEDS: FAMOTIDINE 20 MG TAB PO SCH ×2 (10:00→21:00)
[2020-06-11 14:20] VITALS: BP 103/58
[2020-06-11 18:05] VITALS: BP 110/36
[2020-06-11] MEDS: ACETAMINOPHEN 650 mg PER 20.3 mL UD PO PRN (18:15)
[2020-06-11] MEDS: MIDAZOLAM DRIP 50 mg/50mL 50 ML IV SCH (20:15)
[2020-06-11] MEDS: NOREPINEPHRINE 8 MG/250ML KIT 250 ML IV SCH (20:43)
[2020-06-11 22:15] VITALS: BP 104/39
[2020-06-12 02:01] VITALS: BP 127/39
[2020-06-12 04:41] LABS: Basophils # (auto) 0 10 ^3/uL (0-0.2); Basophils % (auto) 0.1 % (0.0-2.0); Eosinophils # (auto) 0 10 ^3/uL (0-0.8); Hemoglobin 11.4 g/dL (13.5-17.5); Lymphocytes # (auto) 0.7 10 ^3/uL (0.4-5.4); Red Blood Cells 4.63 10^6/uL (4.5-5.90)
[2020-06-12 04:44] LABS: Hematocrit 35.1 % (41.0-53.0); Lymphocytes % (auto) 5.4 % (10.0-50.0); Mean Corpuscular Hemoglobin 24.7 pg (28.0-32.0); Mean Corpuscular Hgb Conc. 32.6 g/dL (32.0-36.0); Mean Corpuscular Volume 75.8 fL (80.0-100.0); Monocytes # (auto) 0.8 10 ^3/uL (0-1.3); Monocytes % (auto) 6.3 % (0.0-12.0); Neutrophils # (auto) 11.8 10 ^3/uL (1.6-8.6); Neutrophils % (auto) 88.2 % (37.0-80.0); Red Cell Distribution Width 15.4 % (11.8-14.3); White Blood Cell 13.4 10^3/uL (4.4-10.8)
[2020-06-12] MEDS: MEROPENEM 1GM IVPB 100 ML IV SCH ×3 (05:01→22:47)
[2020-06-12 05:17] LABS: Potassium 5.2 mmol/L (3.5-5.1)
[2020-06-12 05:47] LABS: BUN/Creatinine Ratio 54.2; Bilirubin, Total 0.6 mg/dL (0.2-1.0); Calcium 8.4 mg/dL (8.5-10.1)
[2020-06-12] MEDS: ALBUTEROL SULF 2.5 MG/0.5ML(0.5%) NEB SOLN NEB SCH ×3 (06:00→18:30)
[2020-06-12 06:10] VITALS: BP 136/48
[2020-06-12] MEDS: ACCU-CHEK COMFORT CURVE STRIP VI SCH ×4 (07:38→23:09)
[2020-06-12] MEDS: InsuLIN REG 1unit/0.01ml Soln (100units/ml) SC SCH ×4 (07:39→23:15)
[2020-06-12] MEDS: fentaNYL Drip 2500mCg/250mlNS 250 ML IV SCH (07:45)
[2020-06-12] MEDS: BUDESONIDE (INHALATION) 0.5 MG/2 ML NEB NEB SCH ×2 (10:00→18:30)
[2020-06-12] MEDS: CHOLECALCIFEROL (VITD3) 2,000 UNIT CAP/TAB PO SCH (10:00)
[2020-06-12] MEDS: ENOXAPARIN SOD 40 MG/0.4 ML SYRINGE SC SCH (10:41)
[2020-06-12] MEDS: ASCORBIC ACID 1,000 MG TAB PO SCH (10:41)
[2020-06-12] MEDS: FAMOTIDINE 20 MG TAB PO SCH ×2 (10:41→23:09)
[2020-06-12] MEDS: ZINC SULFATE 220mg CAP or TAB PO SCH (10:41)
[2020-06-12] MEDS: DexAMETHasone SOD PHOS 10MG/1ML VIAL INJ IV SCH (10:41)
[2020-06-12] MEDS: INSULIN LANTUS (GLARGINE) 1 /0.01ml (100units/ml) SC SCH (10:42)
[2020-06-12] MEDS: LORazepam 2MG/ML-1ML VIAL IV PRN ×2 (15:10→16:31)
[2020-06-12] MEDS ORDERED: MORPHINE SULFATE INJECTION 2 MG/ML SYRG IV ONE (16:30)
[2020-06-12] MEDS: MIDAZOLAM DRIP 50 mg/50mL 50 ML IV SCH (17:00)
[2020-06-12 18:30] VITALS: BP 126/81
[2020-06-12] MEDS: NOREPINEPHRINE 8 MG/250ML KIT 250 ML IV SCH (20:15)
[2020-06-12 22:00] VITALS: BP 123/60
[2020-06-13 02:00] VITALS: BP 93/57
[2020-06-13] MEDS: MEROPENEM 1GM IVPB 100 ML IV SCH ×3 (05:45→22:24)
[2020-06-13 05:52] VITALS: BP 91/46
[2020-06-13] MEDS: BUDESONIDE (INHALATION) 0.5 MG/2 ML NEB NEB SCH ×2 (05:52→22:00)
[2020-06-13] MEDS: ALBUTEROL SULF 2.5 MG/0.5ML(0.5%) NEB SOLN NEB SCH ×3 (05:52→22:00)
[2020-06-13 06:52] LABS: Basophils # (auto) 0 10 ^3/uL (0-0.2); Eosinophils # (auto) 0 10 ^3/uL (0-0.8); Hemoglobin 10.8 g/dL (13.5-17.5); Monocytes # (auto) 0.5 10 ^3/uL (0-1.3)
[2020-06-13 06:55] LABS: Basophils % (auto) 0.1 % (0.0-2.0); Hematocrit 33.2 % (41.0-53.0); Lymphocytes # (auto) 0.5 10 ^3/uL (0.4-5.4); Lymphocytes % (auto) 3.8 % (10.0-50.0); Mean Corpuscular Hemoglobin 24.6 pg (28.0-32.0); Mean Corpuscular Hgb Conc. 32.4 g/dL (32.0-36.0); Monocytes % (auto) 3.8 % (0.0-12.0); Neutrophils # (auto) 11.7 10 ^3/uL (1.6-8.6); Neutrophils % (auto) 92.3 % (37.0-80.0); Red Blood Cells 4.37 10^6/uL (4.5-5.90); Red Cell Distribution Width 15.2 % (11.8-14.3); White Blood Cell 12.7 10^3/uL (4.4-10.8)
[2020-06-13 07:01] LABS: Calcium 8.2 mg/dL (8.5-10.1); Potassium 4.2 mmol/L (3.5-5.1)
[2020-06-13 07:07] LABS: Albumin 2.2 g/dL (3.4-5.0); BUN/Creatinine Ratio 57.1; Bilirubin, Total 0.6 mg/dL (0.2-1.0); Total Protein 5.7 g/dL (6.4-8.2)
[2020-06-13] MEDS: ACCU-CHEK COMFORT CURVE STRIP VI SCH ×4 (07:10→22:10)
[2020-06-13] MEDS: InsuLIN REG 1unit/0.01ml Soln (100units/ml) SC SCH ×4 (07:17→22:16)
[2020-06-13] MEDS: ENOXAPARIN SOD 40 MG/0.4 ML SYRINGE SC SCH (10:00)
[2020-06-13] MEDS: INSULIN LANTUS (GLARGINE) 1 /0.01ml (100units/ml) SC SCH (10:00)
[2020-06-13] MEDS: FAMOTIDINE 20 MG TAB PO SCH ×2 (10:36→22:07)
[2020-06-13] MEDS: ZINC SULFATE 220mg CAP or TAB PO SCH (10:36)
[2020-06-13] MEDS: ASCORBIC ACID 1,000 MG TAB PO SCH (10:36)
[2020-06-13] MEDS: CHOLECALCIFEROL (VITD3) 2,000 UNIT CAP/TAB PO SCH (10:37)
[2020-06-13] MEDS: DexAMETHasone SOD PHOS 10MG/1ML VIAL INJ IV SCH (10:38)
[2020-06-13] MEDS: MIDAZOLAM DRIP 50 mg/50mL 50 ML IV SCH (15:49)
[2020-06-13 18:40] VITALS: BP 146/63
[2020-06-13 22:40] VITALS: BP 133/66
[2020-06-14 02:00] VITALS: BP 132/60
[2020-06-14 05:27] LABS: Basophils # (auto) 0 10 ^3/uL (0-0.2); Basophils % (auto) 0.1 % (0.0-2.0); Eosinophils # (auto) 0 10 ^3/uL (0-0.8); Monocytes # (auto) 0.6 10 ^3/uL (0-1.3); Neutrophils # (auto) 9.8 10 ^3/uL (1.6-8.6)
[2020-06-14 05:28] LABS: Hematocrit 31.7 % (41.0-53.0); Hemoglobin 10.4 g/dL (13.5-17.5); Lymphocytes # (auto) 0.7 10 ^3/uL (0.4-5.4); Lymphocytes % (auto) 5.9 % (10.0-50.0); Mean Corpuscular Hemoglobin 24.8 pg (28.0-32.0); Mean Corpuscular Hgb Conc. 32.8 g/dL (32.0-36.0); Mean Corpuscular Volume 75.6 fL (80.0-100.0); Red Blood Cells 4.19 10^6/uL (4.5-5.90); Red Cell Distribution Width 15.3 % (11.8-14.3); White Blood Cell 11.1 10^3/uL (4.4-10.8)
[2020-06-14 05:42] LABS: Albumin 2.1 g/dL (3.4-5.0); Calcium 7.7 mg/dL (8.5-10.1); Potassium 4.1 mmol/L (3.5-5.1)
[2020-06-14 05:43] LABS: BUN/Creatinine Ratio 51.2
[2020-06-14 05:46] LABS: Bilirubin, Total 0.5 mg/dL (0.2-1.0); Total Protein 5.6 g/dL (6.4-8.2)
[2020-06-14] MEDS: MEROPENEM 1GM IVPB 100 ML IV SCH ×3 (05:46→22:05)
[2020-06-14] MEDS: ALBUTEROL SULF 2.5 MG/0.5ML(0.5%) NEB SOLN NEB SCH (06:00)
[2020-06-14] MEDS: BUDESONIDE (INHALATION) 0.5 MG/2 ML NEB NEB SCH ×2 (06:00→09:08)
[2020-06-14 07:07] VITALS: BP 133/61
[2020-06-14] MEDS: ENOXAPARIN SOD 40 MG/0.4 ML SYRINGE SC SCH (10:00)
[2020-06-14] MEDS: INSULIN LANTUS (GLARGINE) 1 /0.01ml (100units/ml) SC SCH (10:00)
[2020-06-14] MEDS: FAMOTIDINE 20 MG TAB PO SCH ×2 (10:00→22:19)
[2020-06-14] MEDS: CHOLECALCIFEROL (VITD3) 2,000 UNIT CAP/TAB PO SCH (10:00)
[2020-06-14] MEDS: DexAMETHasone SOD PHOS 10MG/1ML VIAL INJ IV SCH (10:00)
[2020-06-14] MEDS: ASCORBIC ACID 1,000 MG TAB PO SCH (10:00)
[2020-06-14] MEDS: ZINC SULFATE 220mg CAP or TAB PO SCH (10:00)
[2020-06-14] MEDS: InsuLIN REG 1unit/0.01ml Soln (100units/ml) SC SCH ×4 (12:30→22:19)
[2020-06-14 14:02] VITALS: BP 132/73
[2020-06-14] MEDS: ACCU-CHEK COMFORT CURVE STRIP VI SCH ×4 (14:20→22:00)
[2020-06-14] MEDS: DOPamine 1600MCG/ML D5W 250 ML IV SCH (15:00)
[2020-06-14 18:55] VITALS: BP 148/66
[2020-06-14 22:50] VITALS: BP 92/51
[2020-06-15 02:40] VITALS: BP 88/53
[2020-06-15] MEDS: fentaNYL Drip 2500mCg/250mlNS 250 ML IV SCH ×2 (03:23→23:00)
[2020-06-15] MEDS ORDERED: NOREPINEPHRINE 8 MG/250ML KIT 250 ML IV SCH (04:30)
[2020-06-15] MEDS: DOPamine 1600MCG/ML D5W 250 ML IV SCH ×3 (05:00→20:00)
[2020-06-15 06:00] VITALS: BP 113/35
[2020-06-15] MEDS: BUDESONIDE (INHALATION) 0.5 MG/2 ML NEB NEB SCH ×2 (06:00→19:53)
[2020-06-15] MEDS: ALBUTEROL SULF 2.5 MG/0.5ML(0.5%) NEB SOLN NEB SCH ×3 (06:00→19:53)
[2020-06-15] MEDS: MEROPENEM 1GM IVPB 100 ML IV SCH ×3 (06:20→22:09)
[2020-06-15] MEDS: ACCU-CHEK COMFORT CURVE STRIP VI SCH ×4 (06:42→22:06)
[2020-06-15 06:49] LABS: Basophils # (auto) 0.1 10 ^3/uL (0-0.2); Eosinophils # (auto) 0.1 10 ^3/uL (0-0.8); Lymphocytes # (auto) 1.5 10 ^3/uL (0.4-5.4); Monocytes # (auto) 0.7 10 ^3/uL (0-1.3); Nucleated Red Blood Cells % 0.1 %
[2020-06-15] MEDS: InsuLIN REG 1unit/0.01ml Soln (100units/ml) SC SCH ×4 (06:50→22:07)
[2020-06-15 06:52] LABS: Basophils % (auto) 0.4 % (0.0-2.0); Eosinophils % (auto) 0.9 % (0.0-7.0); Hematocrit 40.4 % (41.0-53.0); Hemoglobin 13.1 g/dL (13.5-17.5); Lymphocytes % (auto) 11.4 % (10.0-50.0); Mean Corpuscular Hemoglobin 24.6 pg (28.0-32.0); Mean Corpuscular Hgb Conc. 32.4 g/dL (32.0-36.0); Mean Corpuscular Volume 75.8 fL (80.0-100.0); Monocytes % (auto) 5.4 % (0.0-12.0); Neutrophils # (auto) 10.6 10 ^3/uL (1.6-8.6); Neutrophils % (auto) 81.9 % (37.0-80.0); Red Blood Cells 5.33 10^6/uL (4.5-5.90); Red Cell Distribution Width 14.8 % (11.8-14.3)
[2020-06-15 09:41] LABS: Albumin 2.5 g/dL (3.4-5.0); Calcium 8.7 mg/dL (8.5-10.1); Potassium 4.4 mmol/L (3.5-5.1)
[2020-06-15 09:44] LABS: BUN/Creatinine Ratio 47.6; Bilirubin, Total 0.7 mg/dL (0.2-1.0); Total Protein 6.7 g/dL (6.4-8.2)
[2020-06-15] MEDS: ENOXAPARIN SOD 40 MG/0.4 ML SYRINGE SC SCH (10:00)
[2020-06-15] MEDS: ASCORBIC ACID 1,000 MG TAB PO SCH (10:00)
[2020-06-15] MEDS: INSULIN LANTUS (GLARGINE) 1 /0.01ml (100units/ml) SC SCH (10:00)
[2020-06-15] MEDS: CHOLECALCIFEROL (VITD3) 2,000 UNIT CAP/TAB PO SCH (10:00)
[2020-06-15] MEDS: ZINC SULFATE 220mg CAP or TAB PO SCH (10:00)
[2020-06-15] MEDS: FAMOTIDINE 20 MG TAB PO SCH ×2 (10:00→22:09)
[2020-06-15] MEDS: DexAMETHasone SOD PHOS 10MG/1ML VIAL INJ IV SCH (10:00)
[2020-06-15 10:20] VITALS: BP 107/68
[2020-06-15 14:05] VITALS: BP 98/61
[2020-06-15] MEDS: MIDAZOLAM DRIP 50 mg/50mL 50 ML IV SCH (19:00)
[2020-06-15 19:53] VITALS: BP 135/86
[2020-06-15] MEDS: ATORVASTATIN 20 MG TAB GT SCH (22:08)
[2020-06-16 00:56] VITALS: BP 107/59
[2020-06-16 06:24] VITALS: BP 119/63
[2020-06-16] MEDS: BUDESONIDE (INHALATION) 0.5 MG/2 ML NEB NEB SCH ×2 (06:24→22:00)
[2020-06-16] MEDS: ALBUTEROL SULF 2.5 MG/0.5ML(0.5%) NEB SOLN NEB SCH ×3 (06:24→22:00)
[2020-06-16] MEDS: MEROPENEM 1GM IVPB 100 ML IV SCH ×3 (06:50→22:00)
[2020-06-16] MEDS: ACCU-CHEK COMFORT CURVE STRIP VI SCH ×4 (07:00→23:00)
[2020-06-16] MEDS: InsuLIN REG 1unit/0.01ml Soln (100units/ml) SC SCH ×4 (07:05→23:00)
[2020-06-16] MEDS: fentaNYL Drip 2500mCg/250mlNS 250 ML IV SCH (07:45)
[2020-06-16] MEDS: MIDAZOLAM DRIP 50 mg/50mL 50 ML IV SCH ×3 (08:33→21:24)
[2020-06-16] MEDS: DexAMETHasone SOD PHOS 10MG/1ML VIAL INJ IV SCH (08:39)
[2020-06-16] MEDS: ASCORBIC ACID 1,000 MG TAB PO SCH (08:40)
[2020-06-16] MEDS: CHOLECALCIFEROL (VITD3) 2,000 UNIT CAP/TAB PO SCH (08:40)
[2020-06-16] MEDS: FAMOTIDINE 20 MG TAB PO SCH ×2 (08:40→22:00)
[2020-06-16] MEDS: ZINC SULFATE 220mg CAP or TAB PO SCH (08:40)
[2020-06-16] MEDS: INSULIN LANTUS (GLARGINE) 1 /0.01ml (100units/ml) SC SCH (08:40)
[2020-06-16] MEDS: ENOXAPARIN SOD 40 MG/0.4 ML SYRINGE SC SCH (08:44)
[2020-06-16 10:40] VITALS: BP 119/76
[2020-06-16 13:10] VITALS: BP 118/69
[2020-06-16] MEDS: DOPamine 1600MCG/ML D5W 250 ML IV SCH ×2 (14:15→15:36)
[2020-06-16 19:00] VITALS: BP 97/57
[2020-06-16 22:00] VITALS: BP 97/59
[2020-06-16] MEDS: ATORVASTATIN 20 MG TAB GT SCH (23:00)
[2020-06-17] MEDS: ACCU-CHEK COMFORT CURVE STRIP VI SCH ×4 (05:54→21:59)
[2020-06-17] MEDS: InsuLIN REG 1unit/0.01ml Soln (100units/ml) SC SCH ×4 (05:54→22:03)
[2020-06-17] MEDS: MEROPENEM 1GM IVPB 100 ML IV SCH ×3 (06:03→21:58)
[2020-06-17 06:05] VITALS: BP 97/60
[2020-06-17] MEDS: BUDESONIDE (INHALATION) 0.5 MG/2 ML NEB NEB SCH ×2 (06:05→23:10)
[2020-06-17] MEDS: ALBUTEROL SULF 2.5 MG/0.5ML(0.5%) NEB SOLN NEB SCH ×3 (06:05→23:10)
[2020-06-17] MEDS: fentaNYL Drip 2500mCg/250mlNS 250 ML IV SCH (07:45)
[2020-06-17] MEDS: ZINC SULFATE 220mg CAP or TAB PO SCH (09:23)
[2020-06-17] MEDS: CHOLECALCIFEROL (VITD3) 2,000 UNIT CAP/TAB PO SCH (09:23)
[2020-06-17] MEDS: DexAMETHasone SOD PHOS 10MG/1ML VIAL INJ IV SCH (09:23)
[2020-06-17] MEDS: DOPamine 1600MCG/ML D5W 250 ML IV SCH ×2 (09:23→14:15)
[2020-06-17] MEDS: FAMOTIDINE 20 MG TAB PO SCH ×2 (09:23→21:59)
[2020-06-17] MEDS: ASCORBIC ACID 1,000 MG TAB PO SCH (09:23)
[2020-06-17] MEDS: ENOXAPARIN SOD 40 MG/0.4 ML SYRINGE SC SCH (09:40)
[2020-06-17] MEDS: INSULIN LANTUS (GLARGINE) 1 /0.01ml (100units/ml) SC SCH (10:00)
[2020-06-17 18:35] VITALS: BP 91/57
[2020-06-17] MEDS: ATORVASTATIN 20 MG TAB GT SCH (21:58)
[2020-06-17 23:10] VITALS: BP 117/71
[2020-06-18] VITALS (74 sets, daily range): BP systolic 67–135; BP diastolic 42–74
[2020-06-18 00:36] LABS: Basophils # (auto) 0 10 ^3/uL (0-0.2); Basophils % (auto) 0.1 % (0.0-2.0); Eosinophils # (auto) 0 10 ^3/uL (0-0.8); Hemoglobin 13.4 g/dL (13.5-17.5); Lymphocytes # (auto) 0.4 10 ^3/uL (0.4-5.4); Mean Corpuscular Hemoglobin 24.9 pg (28.0-32.0); Monocytes # (auto) 0.6 10 ^3/uL (0-1.3); Nucleated Red Blood Cells % 0.1 %
[2020-06-18 00:38] LABS: Lymphocytes % (auto) 3.7 % (10.0-50.0); Mean Corpuscular Hgb Conc. 33.5 g/dL (32.0-36.0); Mean Corpuscular Volume 74.4 fL (80.0-100.0); Monocytes % (auto) 5.9 % (0.0-12.0); Neutrophils # (auto) 9.9 10 ^3/uL (1.6-8.6); Neutrophils % (auto) 90.3 % (37.0-80.0); Red Blood Cells 5.38 10^6/uL (4.5-5.90); Red Cell Distribution Width 14.7 % (11.8-14.3)
[2020-06-18 01:09] LABS: Albumin 2.5 g/dL (3.4-5.0); Potassium 4.5 mmol/L (3.5-5.1)
[2020-06-18 01:34] LABS: BUN/Creatinine Ratio 51.2; Bilirubin, Direct 0.3 mg/dL (0-0.2); Bilirubin, Total 0.7 mg/dL (0.2-1.0); Calcium 8.7 mg/dL (8.5-10.1); Total Protein 6.1 g/dL (6.4-8.2)
[2020-06-18] MEDS: DOPamine 1600MCG/ML D5W 250 ML IV SCH ×4 (02:12→18:28)
[2020-06-18] MEDS: MEROPENEM 1GM IVPB 100 ML IV SCH ×3 (06:16→22:58)
[2020-06-18] MEDS: fentaNYL Drip 2500mCg/250mlNS 250 ML IV SCH (06:17)
[2020-06-18] MEDS: MIDAZOLAM DRIP 50 mg/50mL 50 ML IV SCH (06:18)
[2020-06-18] MEDS: ACCU-CHEK COMFORT CURVE STRIP VI SCH ×4 (06:19→22:58)
[2020-06-18] MEDS: InsuLIN REG 1unit/0.01ml Soln (100units/ml) SC SCH ×4 (06:19→22:50)
[2020-06-18] MEDS: BUDESONIDE (INHALATION) 0.5 MG/2 ML NEB NEB SCH ×2 (07:25→22:13)
[2020-06-18] MEDS: ALBUTEROL SULF 2.5 MG/0.5ML(0.5%) NEB SOLN NEB SCH ×3 (07:25→22:13)
[2020-06-18] MEDS: INSULIN LANTUS (GLARGINE) 1 /0.01ml (100units/ml) SC SCH (10:00)
[2020-06-18] MEDS: ENOXAPARIN SOD 40 MG/0.4 ML SYRINGE SC SCH (11:14)
[2020-06-18] MEDS: CHOLECALCIFEROL (VITD3) 2,000 UNIT CAP/TAB PO SCH (11:14)
[2020-06-18] MEDS: ZINC SULFATE 220mg CAP or TAB PO SCH (11:15)
[2020-06-18] MEDS: DexAMETHasone SOD PHOS 10MG/1ML VIAL INJ IV SCH (11:15)
[2020-06-18] MEDS: FAMOTIDINE 20 MG TAB PO SCH ×2 (11:15→22:58)
[2020-06-18] MEDS: ASCORBIC ACID 1,000 MG TAB PO SCH (11:15)
[2020-06-18] MEDS: ATORVASTATIN 20 MG TAB GT SCH (22:58)
[2020-06-19] VITALS (94 sets, daily range): BP systolic 81–171; BP diastolic 50–101
[2020-06-19] MEDS: ALBUTEROL SULF 2.5 MG/0.5ML(0.5%) NEB SOLN NEB SCH ×3 (06:00→22:00)
[2020-06-19 06:03] LABS: Basophils # (auto) 0.1 10 ^3/uL (0-0.2); Basophils % (auto) 0.5 % (0.0-2.0); Eosinophils # (auto) 0 10 ^3/uL (0-0.8); Eosinophils % (auto) 0.2 % (0.0-7.0); Hematocrit 38.2 % (41.0-53.0); Hemoglobin 12.9 g/dL (13.5-17.5); Lymphocytes # (auto) 1.3 10 ^3/uL (0.4-5.4); Lymphocytes % (auto) 11.6 % (10.0-50.0); Mean Corpuscular Hemoglobin 25.2 pg (28.0-32.0); Mean Corpuscular Hgb Conc. 33.8 g/dL (32.0-36.0); Mean Corpuscular Volume 74.4 fL (80.0-100.0); Monocytes # (auto) 0.7 10 ^3/uL (0-1.3); Monocytes % (auto) 5.9 % (0.0-12.0); Neutrophils # (auto) 9.5 10 ^3/uL (1.6-8.6); Neutrophils % (auto) 81.8 % (37.0-80.0); Nucleated Red Blood Cells % 0.1 %; Red Blood Cells 5.13 10^6/uL (4.5-5.90); Red Cell Distribution Width 15.4 % (11.8-14.3); White Blood Cell 11.6 10^3/uL (4.4-10.8)
[2020-06-19] MEDS: InsuLIN REG 1unit/0.01ml Soln (100units/ml) SC SCH ×4 (06:06→23:14)
[2020-06-19] MEDS: ACCU-CHEK COMFORT CURVE STRIP VI SCH ×4 (06:06→23:13)
[2020-06-19 06:16] LABS: Potassium 4.1 mmol/L (3.5-5.1)
[2020-06-19] MEDS: MEROPENEM 1GM IVPB 100 ML IV SCH ×3 (06:24→22:00)
[2020-06-19 06:30] LABS: BUN/Creatinine Ratio 43.2; Calcium 8.3 mg/dL (8.5-10.1)
[2020-06-19] MEDS: DOPamine 1600MCG/ML D5W 250 ML IV SCH ×2 (07:57→22:05)
[2020-06-19] MEDS: ASCORBIC ACID 1,000 MG TAB PO SCH (10:00)
[2020-06-19] MEDS: DexAMETHasone SOD PHOS 10MG/1ML VIAL INJ IV SCH (10:00)
[2020-06-19] MEDS: CHOLECALCIFEROL (VITD3) 2,000 UNIT CAP/TAB PO SCH (10:00)
[2020-06-19] MEDS: INSULIN LANTUS (GLARGINE) 1 /0.01ml (100units/ml) SC SCH (10:00)
[2020-06-19] MEDS: ZINC SULFATE 220mg CAP or TAB PO SCH (10:00)
[2020-06-19] MEDS: FAMOTIDINE 20 MG TAB PO SCH ×2 (10:00→22:00)
[2020-06-19] MEDS: ENOXAPARIN SOD 40 MG/0.4 ML SYRINGE SC SCH (10:00)
[2020-06-19] MEDS: BUDESONIDE (INHALATION) 0.5 MG/2 ML NEB NEB SCH ×2 (10:08→22:00)
[2020-06-19] MEDS ORDERED: MIDAZOLAM DRIP 50 mg/50mL 50 ML IV ONE (15:42)
[2020-06-19] MEDS: fentaNYL Drip 2500mCg/250mlNS 250 ML IV SCH (15:45)
[2020-06-19] MEDS: MIDAZOLAM DRIP 50 mg/50mL 50 ML IV SCH ×2 (15:45→20:05)
[2020-06-19] MEDS: ATORVASTATIN 20 MG TAB GT SCH (22:00)
[2020-06-20] VITALS (93 sets, daily range): BP systolic 67–162; BP diastolic 32–81
[2020-06-20] MEDS: ACCU-CHEK COMFORT CURVE STRIP VI SCH ×4 (05:12→22:00)
[2020-06-20] MEDS: InsuLIN REG 1unit/0.01ml Soln (100units/ml) SC SCH ×4 (05:12→20:56)
[2020-06-20] MEDS: MEROPENEM 1GM IVPB 100 ML IV SCH (05:12)
[2020-06-20] MEDS: DOPamine 1600MCG/ML D5W 250 ML IV SCH ×2 (05:16→21:05)
[2020-06-20] MEDS: BUDESONIDE (INHALATION) 0.5 MG/2 ML NEB NEB SCH ×2 (07:43→19:00)
[2020-06-20] MEDS: ALBUTEROL SULF 2.5 MG/0.5ML(0.5%) NEB SOLN NEB SCH ×2 (07:43→19:00)
[2020-06-20 09:43] LABS: Basophils # (auto) 0.1 10 ^3/uL (0-0.2); Basophils % (auto) 0.7 % (0.0-2.0); Hemoglobin 13.1 g/dL (13.5-17.5); Mean Corpuscular Hemoglobin 24.5 pg (28.0-32.0); Mean Corpuscular Volume 74.8 fL (80.0-100.0); Monocytes # (auto) 0.7 10 ^3/uL (0-1.3); Monocytes % (auto) 6.5 % (0.0-12.0); Nucleated Red Blood Cells % 0.1 %
[2020-06-20 09:46] LABS: Eosinophils # (auto) 0 10 ^3/uL (0-0.8); Eosinophils % (auto) 0.4 % (0.0-7.0); Lymphocytes # (auto) 1.7 10 ^3/uL (0.4-5.4); Lymphocytes % (auto) 16.9 % (10.0-50.0); Mean Corpuscular Hgb Conc. 32.8 g/dL (32.0-36.0); Neutrophils # (auto) 7.7 10 ^3/uL (1.6-8.6); Neutrophils % (auto) 75.5 % (37.0-80.0); Red Blood Cells 5.35 10^6/uL (4.5-5.90); Red Cell Distribution Width 15.2 % (11.8-14.3); White Blood Cell 10.2 10^3/uL (4.4-10.8)
[2020-06-20] MEDS: CHOLECALCIFEROL (VITD3) 2,000 UNIT CAP/TAB PO SCH (10:00)
[2020-06-20] MEDS: FAMOTIDINE 20 MG TAB PO SCH ×2 (10:00→22:00)
[2020-06-20] MEDS: ENOXAPARIN SOD 40 MG/0.4 ML SYRINGE SC SCH (10:00)
[2020-06-20] MEDS: ASCORBIC ACID 1,000 MG TAB PO SCH (10:00)
[2020-06-20] MEDS: INSULIN LANTUS (GLARGINE) 1 /0.01ml (100units/ml) SC SCH (10:00)
[2020-06-20] MEDS: DexAMETHasone SOD PHOS 10MG/1ML VIAL INJ IV SCH (10:00)
[2020-06-20] MEDS: ZINC SULFATE 220mg CAP or TAB PO SCH (10:00)
[2020-06-20 10:02] LABS: Albumin 2.4 g/dL (3.4-5.0); Calcium 8.2 mg/dL (8.5-10.1); Potassium 3.7 mmol/L (3.5-5.1)
[2020-06-20 10:06] LABS: Bilirubin, Total 0.9 mg/dL (0.2-1.0); Total Protein 5.8 g/dL (6.4-8.2)
[2020-06-20] MEDS ORDERED: FUROSEMIDE 40 MG/4 ML VIAL ONE (10:25)
[2020-06-20] MEDS: fentaNYL Drip 2500mCg/250mlNS 250 ML IV SCH (11:00)
[2020-06-20] MEDS ORDERED: FUROSEMIDE 40 MG/4 ML VIAL IV ONE (11:00)
[2020-06-20] MEDS ORDERED: cefTRIAXone 1GM/50ML D5W 50 ML IV ONE (11:00)
[2020-06-20] MEDS: PHENYLEPHRINE IV 250 ML IV SCH ×2 (12:30→21:00)
[2020-06-20] MEDS ORDERED: PHENYLEPHRINE IV 250 ML IV ONE (12:40)
[2020-06-20] MEDS: ATORVASTATIN 20 MG TAB GT SCH (22:00)
[2020-06-21] VITALS (100 sets, daily range): BP systolic 89–147; BP diastolic 54–74
[2020-06-21] MEDS: PHENYLEPHRINE IV 250 ML IV SCH ×3 (05:20→22:00)
[2020-06-21] MEDS: InsuLIN REG 1unit/0.01ml Soln (100units/ml) SC SCH ×4 (06:00→22:00)
[2020-06-21] MEDS: ACCU-CHEK COMFORT CURVE STRIP VI SCH ×4 (06:01→22:00)
[2020-06-21] MEDS: MIDAZOLAM DRIP 50 mg/50mL 50 ML IV SCH (06:02)
[2020-06-21] MEDS: fentaNYL Drip 2500mCg/250mlNS 250 ML IV SCH (06:02)
[2020-06-21] MEDS: ALBUTEROL SULF 2.5 MG/0.5ML(0.5%) NEB SOLN NEB SCH ×2 (07:05→18:50)
[2020-06-21] MEDS: BUDESONIDE (INHALATION) 0.5 MG/2 ML NEB NEB SCH ×2 (07:05→18:50)
[2020-06-21] MEDS: cefTRIAXone 1GM/50ML D5W 50 ML IV SCH (07:57)
[2020-06-21] MEDS: DexAMETHasone SOD PHOS 10MG/1ML VIAL INJ IV SCH (09:53)
[2020-06-21] MEDS: FAMOTIDINE 20 MG TAB PO SCH ×2 (09:54→22:00)
[2020-06-21] MEDS: INSULIN LANTUS (GLARGINE) 1 /0.01ml (100units/ml) SC SCH (09:54)
[2020-06-21] MEDS: CHOLECALCIFEROL (VITD3) 2,000 UNIT CAP/TAB PO SCH (09:54)
[2020-06-21] MEDS: FUROSEMIDE 40 MG/4 ML VIAL IV SCH (09:54)
[2020-06-21] MEDS: ZINC SULFATE 220mg CAP or TAB PO SCH (09:54)
[2020-06-21] MEDS: ASCORBIC ACID 1,000 MG TAB PO SCH (09:54)
[2020-06-21] MEDS: ENOXAPARIN SOD 40 MG/0.4 ML SYRINGE SC SCH (09:55)
[2020-06-21] MEDS: ATORVASTATIN 20 MG TAB GT SCH (22:00)
[2020-06-22] VITALS (93 sets, daily range): BP systolic 70–143; BP diastolic 41–91
[2020-06-22] MEDS: MIDAZOLAM DRIP 50 mg/50mL 50 ML IV SCH ×2 (01:40→12:53)
[2020-06-22] MEDS: BUDESONIDE (INHALATION) 0.5 MG/2 ML NEB NEB SCH ×2 (06:30→22:35)
[2020-06-22] MEDS: ALBUTEROL SULF 2.5 MG/0.5ML(0.5%) NEB SOLN NEB SCH ×3 (06:30→22:35)
[2020-06-22] MEDS: InsuLIN REG 1unit/0.01ml Soln (100units/ml) SC SCH ×4 (06:49→22:26)
[2020-06-22] MEDS: ACCU-CHEK COMFORT CURVE STRIP VI SCH ×4 (07:00→22:26)
[2020-06-22] MEDS: cefTRIAXone 1GM/50ML D5W 50 ML IV SCH (09:12)
[2020-06-22] MEDS: ZINC SULFATE 220mg CAP or TAB PO SCH (09:12)
[2020-06-22] MEDS: DexAMETHasone SOD PHOS 10MG/1ML VIAL INJ IV SCH (09:12)
[2020-06-22] MEDS: FUROSEMIDE 40 MG/4 ML VIAL IV SCH (09:12)
[2020-06-22] MEDS: ENOXAPARIN SOD 40 MG/0.4 ML SYRINGE SC SCH (09:13)
[2020-06-22] MEDS: CHOLECALCIFEROL (VITD3) 2,000 UNIT CAP/TAB PO SCH (09:13)
[2020-06-22] MEDS: FAMOTIDINE 20 MG TAB PO SCH ×2 (09:13→22:26)
[2020-06-22] MEDS: ASCORBIC ACID 1,000 MG TAB PO SCH (09:13)
[2020-06-22] MEDS: INSULIN LANTUS (GLARGINE) 1 /0.01ml (100units/ml) SC SCH (09:15)
[2020-06-22] MEDS: DOPamine 1600MCG/ML D5W 250 ML IV SCH ×3 (10:00→18:42)
[2020-06-22 11:47] LABS: Basophils # (auto) 0 10 ^3/uL (0-0.2); Eosinophils # (auto) 0.1 10 ^3/uL (0-0.8); Eosinophils % (auto) 0.4 % (0.0-7.0); Nucleated Red Blood Cells % 0.1 %; Red Cell Distribution Width 15.2 % (11.8-14.3)
[2020-06-22 11:49] LABS: Basophils % (auto) 0.1 % (0.0-2.0); Hematocrit 42.1 % (41.0-53.0); Hemoglobin 14.3 g/dL (13.5-17.5); Lymphocytes % (auto) 4.4 % (10.0-50.0); Mean Corpuscular Hemoglobin 25.5 pg (28.0-32.0); Mean Corpuscular Hgb Conc. 33.9 g/dL (32.0-36.0); Mean Corpuscular Volume 75.3 fL (80.0-100.0); Monocytes # (auto) 0.5 10 ^3/uL (0-1.3); Monocytes % (auto) 2.1 % (0.0-12.0); Neutrophils # (auto) 21.8 10 ^3/uL (1.6-8.6); Red Blood Cells 5.59 10^6/uL (4.5-5.90); White Blood Cell 23.4 10^3/uL (4.4-10.8)
[2020-06-22 12:02] LABS: BUN/Creatinine Ratio 31.5; Calcium 7.9 mg/dL (8.5-10.1); Potassium 4.6 mmol/L (3.5-5.1)
[2020-06-22] MEDS: PHENYLEPHRINE IV 250 ML IV SCH ×2 (14:40→22:27)
[2020-06-22] MEDS: fentaNYL Drip 2500mCg/250mlNS 250 ML IV SCH (15:45)
[2020-06-22] MEDS: ATORVASTATIN 20 MG TAB GT SCH (22:27)
[2020-06-23] VITALS (94 sets, daily range): BP systolic 77–131; BP diastolic 43–74
[2020-06-23] MEDS: MIDAZOLAM DRIP 50 mg/50mL 50 ML IV SCH ×3 (02:00→15:38)
[2020-06-23] MEDS: DOPamine 1600MCG/ML D5W 250 ML IV SCH ×3 (02:45→23:34)
[2020-06-23] MEDS: InsuLIN REG 1unit/0.01ml Soln (100units/ml) SC SCH ×4 (06:38→22:02)
[2020-06-23] MEDS: ACCU-CHEK COMFORT CURVE STRIP VI SCH ×4 (06:40→22:01)
[2020-06-23] MEDS: BUDESONIDE (INHALATION) 0.5 MG/2 ML NEB NEB SCH ×2 (07:20→22:00)
[2020-06-23] MEDS: ALBUTEROL SULF 2.5 MG/0.5ML(0.5%) NEB SOLN NEB SCH ×3 (07:20→22:01)
[2020-06-23] MEDS: PHENYLEPHRINE IV 250 ML IV SCH ×2 (07:55→13:31)
[2020-06-23] MEDS: INSULIN LANTUS (GLARGINE) 1 /0.01ml (100units/ml) SC SCH (09:39)
[2020-06-23] MEDS: ZINC SULFATE 220mg CAP or TAB PO SCH (09:40)
[2020-06-23] MEDS: ASCORBIC ACID 1,000 MG TAB PO SCH (09:40)
[2020-06-23] MEDS: FUROSEMIDE 40 MG/4 ML VIAL IV SCH (09:40)
[2020-06-23] MEDS: FAMOTIDINE 20 MG TAB PO SCH ×2 (09:40→22:01)
[2020-06-23] MEDS: ENOXAPARIN SOD 40 MG/0.4 ML SYRINGE SC SCH (09:40)
[2020-06-23] MEDS: CHOLECALCIFEROL (VITD3) 2,000 UNIT CAP/TAB PO SCH (09:40)
[2020-06-23] MEDS: DexAMETHasone SOD PHOS 10MG/1ML VIAL INJ IV SCH (09:40)
[2020-06-23] MEDS: cefTRIAXone 1GM/50ML D5W 50 ML IV SCH (09:40)
[2020-06-23] MEDS: fentaNYL Drip 2500mCg/250mlNS 250 ML IV SCH (10:43)
[2020-06-23 16:13] LABS: Eosinophils # (auto) 0 10 ^3/uL (0-0.8); Lymphocytes # (auto) 0.5 10 ^3/uL (0.4-5.4)
[2020-06-23 16:15] LABS: Basophils # (auto) 0.1 10 ^3/uL (0-0.2); Basophils % (auto) 0.5 % (0.0-2.0); Hematocrit 44.4 % (41.0-53.0); Hemoglobin 15.6 g/dL (13.5-17.5); Lymphocytes % (auto) 3.3 % (10.0-50.0); Mean Corpuscular Hemoglobin 25.9 pg (28.0-32.0); Mean Corpuscular Hgb Conc. 35.1 g/dL (32.0-36.0); Mean Corpuscular Volume 73.8 fL (80.0-100.0); Monocytes # (auto) 0.1 10 ^3/uL (0-1.3); Monocytes % (auto) 0.9 % (0.0-12.0); Neutrophils # (auto) 15.1 10 ^3/uL (1.6-8.6); Neutrophils % (auto) 95.3 % (37.0-80.0); Red Blood Cells 6.02 10^6/uL (4.5-5.90); Red Cell Distribution Width 15.3 % (11.8-14.3); White Blood Cell 15.9 10^3/uL (4.4-10.8)
[2020-06-23 16:43] LABS: Calcium 8.9 mg/dL (8.5-10.1); Potassium 4.3 mmol/L (3.5-5.1)
[2020-06-23] MEDS: ATORVASTATIN 20 MG TAB GT SCH (22:01)
[2020-06-24] VITALS (98 sets, daily range): BP systolic 59–134; BP diastolic 37–90
[2020-06-24] MEDS: fentaNYL Drip 2500mCg/250mlNS 250 ML IV SCH ×4 (01:00→12:00)
[2020-06-24] MEDS: MIDAZOLAM DRIP 50 mg/50mL 50 ML IV SCH ×5 (01:30→14:58)
[2020-06-24] MEDS: DOPamine 1600MCG/ML D5W 250 ML IV SCH ×3 (02:45→21:00)
[2020-06-24 04:53] LABS: Basophils # (auto) 0 10 ^3/uL (0-0.2); Eosinophils # (auto) 0 10 ^3/uL (0-0.8); Lymphocytes # (auto) 0.9 10 ^3/uL (0.4-5.4); Monocytes # (auto) 0.9 10 ^3/uL (0-1.3); Nucleated Red Blood Cells % 0.1 %
[2020-06-24 04:56] LABS: Hematocrit 41.8 % (41.0-53.0); Hemoglobin 14.2 g/dL (13.5-17.5); Lymphocytes % (auto) 4.6 % (10.0-50.0); Mean Corpuscular Hemoglobin 25.2 pg (28.0-32.0); Mean Corpuscular Hgb Conc. 34.1 g/dL (32.0-36.0); Monocytes % (auto) 4.7 % (0.0-12.0); Neutrophils # (auto) 17.3 10 ^3/uL (1.6-8.6); Neutrophils % (auto) 90.7 % (37.0-80.0); Red Blood Cells 5.65 10^6/uL (4.5-5.90); Red Cell Distribution Width 14.9 % (11.8-14.3); White Blood Cell 19.1 10^3/uL (4.4-10.8)
[2020-06-24 05:25] LABS: Potassium 3.8 mmol/L (3.5-5.1)
[2020-06-24 05:30] LABS: BUN/Creatinine Ratio 36.6; Magnesium 1.8 mg/dL (1.6-2.6)
[2020-06-24] MEDS: InsuLIN REG 1unit/0.01ml Soln (100units/ml) SC SCH ×4 (06:09→22:00)
[2020-06-24] MEDS: ALBUTEROL SULF 2.5 MG/0.5ML(0.5%) NEB SOLN NEB SCH ×3 (06:32→21:57)
[2020-06-24] MEDS: BUDESONIDE (INHALATION) 0.5 MG/2 ML NEB NEB SCH ×2 (06:32→21:57)
[2020-06-24] MEDS: ACCU-CHEK COMFORT CURVE STRIP VI SCH ×4 (07:00→22:00)
[2020-06-24] MEDS: PHENYLEPHRINE IV 250 ML IV SCH ×3 (08:16→16:40)
[2020-06-24] MEDS: cefTRIAXone 1GM/50ML D5W 50 ML IV SCH (09:15)
[2020-06-24] MEDS: DexAMETHasone SOD PHOS 10MG/1ML VIAL INJ IV SCH (09:16)
[2020-06-24] MEDS: FAMOTIDINE 20 MG TAB PO SCH ×2 (10:00→22:11)
[2020-06-24] MEDS: ASCORBIC ACID 1,000 MG TAB PO SCH (10:15)
[2020-06-24] MEDS: CHOLECALCIFEROL (VITD3) 2,000 UNIT CAP/TAB PO SCH (10:15)
[2020-06-24] MEDS: ZINC SULFATE 220mg CAP or TAB PO SCH (10:15)
[2020-06-24] MEDS: INSULIN LANTUS (GLARGINE) 1 /0.01ml (100units/ml) SC SCH (10:15)
[2020-06-24] MEDS: FUROSEMIDE 40 MG/4 ML VIAL IV SCH (10:15)
[2020-06-24] MEDS: ENOXAPARIN SOD 40 MG/0.4 ML SYRINGE SC SCH (10:15)
[2020-06-24] MEDS: ATORVASTATIN 20 MG TAB GT SCH (22:11)
[2020-06-25] VITALS (88 sets, daily range): BP systolic 58–138; BP diastolic 27–78
[2020-06-25] MEDS: PHENYLEPHRINE IV 250 ML IV SCH ×3 (01:00→17:40)
[2020-06-25] MEDS: MIDAZOLAM DRIP 50 mg/50mL 50 ML IV SCH ×2 (02:29→16:45)
[2020-06-25 06:12] LABS: Eosinophils # (auto) 0 10 ^3/uL (0-0.8); Lymphocytes # (auto) 0.8 10 ^3/uL (0.4-5.4); Monocytes # (auto) 0.5 10 ^3/uL (0-1.3); Monocytes % (auto) 2.5 % (0.0-12.0); Neutrophils % (auto) 93.8 % (37.0-80.0)
[2020-06-25 06:15] LABS: Basophils # (auto) 0 10 ^3/uL (0-0.2); Basophils % (auto) 0.1 % (0.0-2.0); Hematocrit 41.4 % (41.0-53.0); Hemoglobin 13.8 g/dL (13.5-17.5); Lymphocytes % (auto) 3.6 % (10.0-50.0); Mean Corpuscular Hgb Conc. 33.2 g/dL (32.0-36.0); Mean Corpuscular Volume 75.2 fL (80.0-100.0); Neutrophils # (auto) 19.9 10 ^3/uL (1.6-8.6); Red Blood Cells 5.51 10^6/uL (4.5-5.90); Red Cell Distribution Width 15.1 % (11.8-14.3); White Blood Cell 21.3 10^3/uL (4.4-10.8)
[2020-06-25 06:32] LABS: Calcium 8.7 mg/dL (8.5-10.1)
[2020-06-25 06:35] LABS: BUN/Creatinine Ratio 36.2
[2020-06-25] MEDS: ACCU-CHEK COMFORT CURVE STRIP VI SCH ×4 (07:00→22:22)
[2020-06-25] MEDS: ALBUTEROL SULF 2.5 MG/0.5ML(0.5%) NEB SOLN NEB SCH ×3 (07:11→18:49)
[2020-06-25] MEDS: BUDESONIDE (INHALATION) 0.5 MG/2 ML NEB NEB SCH ×2 (07:11→18:49)
[2020-06-25] MEDS: InsuLIN REG 1unit/0.01ml Soln (100units/ml) SC SCH ×4 (09:17→22:21)
[2020-06-25] MEDS: FAMOTIDINE 20 MG TAB PO SCH ×2 (10:00→22:25)
[2020-06-25] MEDS: ASCORBIC ACID 1,000 MG TAB PO SCH (10:00)
[2020-06-25] MEDS: CHOLECALCIFEROL (VITD3) 2,000 UNIT CAP/TAB PO SCH (10:00)
[2020-06-25] MEDS: INSULIN LANTUS (GLARGINE) 1 /0.01ml (100units/ml) SC SCH (10:00)
[2020-06-25] MEDS: DexAMETHasone SOD PHOS 4 MG/1ML SDV INJ IV SCH (10:00)
[2020-06-25] MEDS: FUROSEMIDE 40 MG/4 ML VIAL IV SCH (10:00)
[2020-06-25] MEDS: ENOXAPARIN SOD 40 MG/0.4 ML SYRINGE SC SCH (10:00)
[2020-06-25] MEDS: ZINC SULFATE 220mg CAP or TAB PO SCH (10:00)
[2020-06-25] MEDS: cefTRIAXone 1GM/50ML D5W 50 ML IV SCH (10:48)
[2020-06-25] MEDS: DOPamine 1600MCG/ML D5W 250 ML IV SCH (13:11)
[2020-06-25] MEDS: fentaNYL Drip 2500mCg/250mlNS 250 ML IV SCH (19:25)
[2020-06-25] MEDS: ATORVASTATIN 20 MG TAB GT SCH (22:25)
[2020-06-26] VITALS (94 sets, daily range): BP systolic 43–191; BP diastolic 20–96
[2020-06-26] MEDS: PHENYLEPHRINE IV 250 ML IV SCH ×3 (02:00→19:49)
[2020-06-26 06:27] LABS: INR 1.1 (0.9-1.15); Partial Thromboplastin Time 28.4 sec (23.0-31.2)
[2020-06-26] MEDS: InsuLIN REG 1unit/0.01ml Soln (100units/ml) SC SCH ×4 (06:52→22:02)
[2020-06-26] MEDS: ACCU-CHEK COMFORT CURVE STRIP VI SCH ×4 (06:53→21:56)
[2020-06-26] MEDS: cefTRIAXone 1GM/50ML D5W 50 ML IV SCH (09:30)
[2020-06-26] MEDS: DexAMETHasone SOD PHOS 4 MG/1ML SDV INJ IV SCH (10:08)
[2020-06-26] MEDS: FUROSEMIDE 40 MG/4 ML VIAL IV SCH (10:09)
[2020-06-26] MEDS: FAMOTIDINE 20 MG TAB PO SCH ×2 (10:09→22:01)
[2020-06-26] MEDS: ASCORBIC ACID 1,000 MG TAB PO SCH (10:09)
[2020-06-26] MEDS: ZINC SULFATE 220mg CAP or TAB PO SCH (10:09)
[2020-06-26] MEDS: ENOXAPARIN SOD 40 MG/0.4 ML SYRINGE SC SCH (10:09)
[2020-06-26] MEDS: CHOLECALCIFEROL (VITD3) 2,000 UNIT CAP/TAB PO SCH (10:09)
[2020-06-26] MEDS: INSULIN LANTUS (GLARGINE) 1 /0.01ml (100units/ml) SC SCH (10:10)
[2020-06-26] MEDS: BUDESONIDE (INHALATION) 0.5 MG/2 ML NEB NEB SCH ×2 (11:35→18:30)
[2020-06-26] MEDS: ALBUTEROL SULF 2.5 MG/0.5ML(0.5%) NEB SOLN NEB SCH ×3 (11:35→18:30)
[2020-06-26] MEDS: fentaNYL Drip 2500mCg/250mlNS 250 ML IV SCH (13:24)
[2020-06-26] MEDS: MIDAZOLAM DRIP 50 mg/50mL 50 ML IV SCH (13:26)
[2020-06-26] MEDS: DOPamine 1600MCG/ML D5W 250 ML IV SCH ×2 (13:27→19:42)
[2020-06-26] MEDS: ATORVASTATIN 20 MG TAB GT SCH (22:01)
[2020-06-27] VITALS (101 sets, daily range): BP systolic 73–139; BP diastolic 47–80
[2020-06-27] MEDS: DOPamine 1600MCG/ML D5W 250 ML IV SCH ×4 (02:26→20:00)
[2020-06-27] MEDS: PHENYLEPHRINE IV 250 ML IV SCH ×3 (03:00→04:00)
[2020-06-27] MEDS: ACCU-CHEK COMFORT CURVE STRIP VI SCH ×4 (05:23→22:00)
[2020-06-27 05:46] LABS: Basophils # (auto) 0 10 ^3/uL (0-0.2); Eosinophils # (auto) 0 10 ^3/uL (0-0.8)
[2020-06-27 05:48] LABS: Basophils % (auto) 0.2 % (0.0-2.0); Hematocrit 38.7 % (41.0-53.0); Hemoglobin 12.6 g/dL (13.5-17.5); Lymphocytes # (auto) 0.8 10 ^3/uL (0.4-5.4); Lymphocytes % (auto) 5.8 % (10.0-50.0); Mean Corpuscular Hemoglobin 24.4 pg (28.0-32.0); Mean Corpuscular Hgb Conc. 32.6 g/dL (32.0-36.0); Mean Corpuscular Volume 74.9 fL (80.0-100.0); Monocytes # (auto) 0.7 10 ^3/uL (0-1.3); Monocytes % (auto) 4.6 % (0.0-12.0); Neutrophils # (auto) 12.8 10 ^3/uL (1.6-8.6); Neutrophils % (auto) 89.4 % (37.0-80.0); Red Blood Cells 5.16 10^6/uL (4.5-5.90); Red Cell Distribution Width 15.2 % (11.8-14.3); White Blood Cell 14.3 10^3/uL (4.4-10.8)
[2020-06-27] MEDS: MIDAZOLAM DRIP 50 mg/50mL 50 ML IV SCH ×2 (05:48→14:58)
[2020-06-27] MEDS: InsuLIN REG 1unit/0.01ml Soln (100units/ml) SC SCH ×4 (05:50→22:00)
[2020-06-27] MEDS: fentaNYL Drip 2500mCg/250mlNS 250 ML IV SCH ×2 (05:50→20:00)
[2020-06-27] MEDS: ALBUTEROL SULF 2.5 MG/0.5ML(0.5%) NEB SOLN NEB SCH ×3 (06:00→19:27)
[2020-06-27 06:27] LABS: BUN/Creatinine Ratio 37.5; Calcium 8.2 mg/dL (8.5-10.1); Potassium 4.3 mmol/L (3.5-5.1)
[2020-06-27 07:13] LABS: CRP High Sensitivity 0.86 mg/dL (< 0.3)
[2020-06-27] MEDS: cefTRIAXone 1GM/50ML D5W 50 ML IV SCH (09:19)
[2020-06-27] MEDS: BUDESONIDE (INHALATION) 0.5 MG/2 ML NEB NEB SCH ×2 (09:49→19:27)
[2020-06-27] MEDS: FUROSEMIDE 40 MG/4 ML VIAL IV SCH (10:00)
[2020-06-27] MEDS: FAMOTIDINE 20 MG TAB PO SCH ×2 (10:00→22:00)
[2020-06-27] MEDS: INSULIN LANTUS (GLARGINE) 1 /0.01ml (100units/ml) SC SCH (10:00)
[2020-06-27] MEDS: ENOXAPARIN SOD 40 MG/0.4 ML SYRINGE SC SCH (10:00)
[2020-06-27] MEDS: ACETAMINOPHEN 650 mg PER 20.3 mL UD PO PRN (21:00)
[2020-06-27] MEDS: ATORVASTATIN 20 MG TAB GT SCH (22:00)
[2020-06-28] VITALS (97 sets, daily range): BP systolic 71–132; BP diastolic 43–81
[2020-06-28] MEDS: MIDAZOLAM DRIP 50 mg/50mL 50 ML IV SCH ×2 (02:30→23:00)
[2020-06-28] MEDS: DOPamine 1600MCG/ML D5W 250 ML IV SCH ×3 (06:00→23:00)
[2020-06-28] MEDS: InsuLIN REG 1unit/0.01ml Soln (100units/ml) SC SCH ×4 (06:46→22:00)
[2020-06-28] MEDS: ACCU-CHEK COMFORT CURVE STRIP VI SCH ×4 (06:47→22:00)
[2020-06-28] MEDS: BUDESONIDE (INHALATION) 0.5 MG/2 ML NEB NEB SCH (07:05)
[2020-06-28] MEDS: ALBUTEROL SULF 2.5 MG/0.5ML(0.5%) NEB SOLN NEB SCH (07:05)
[2020-06-28] MEDS ORDERED: PHENYLEPHRINE IV 250 ML IV ONE (07:05)
[2020-06-28] MEDS: cefTRIAXone 1GM/50ML D5W 50 ML IV SCH (09:00)
[2020-06-28] MEDS: FUROSEMIDE 40 MG/4 ML VIAL IV SCH (10:00)
[2020-06-28] MEDS: INSULIN LANTUS (GLARGINE) 1 /0.01ml (100units/ml) SC SCH (10:00)
[2020-06-28] MEDS: FAMOTIDINE 20 MG TAB PO SCH ×2 (10:00→22:00)
[2020-06-28] MEDS: PHENYLEPHRINE IV 250 ML IV SCH (12:20)
[2020-06-28] MEDS: ATORVASTATIN 20 MG TAB GT SCH (22:00)
[2020-06-29] VITALS (96 sets, daily range): BP systolic 72–160; BP diastolic 50–84
[2020-06-29] MEDS: MIDAZOLAM DRIP 50 mg/50mL 50 ML IV SCH ×2 (02:29→10:50)
[2020-06-29] MEDS: fentaNYL Drip 2500mCg/250mlNS 250 ML IV SCH (05:00)
[2020-06-29] MEDS: PHENYLEPHRINE IV 250 ML IV SCH ×4 (05:00→16:29)
[2020-06-29] MEDS: ALBUTEROL SULF 2.5 MG/0.5ML(0.5%) NEB SOLN NEB SCH ×2 (06:00→21:42)
[2020-06-29] MEDS: InsuLIN REG 1unit/0.01ml Soln (100units/ml) SC SCH ×4 (06:44→22:00)
[2020-06-29] MEDS: ACCU-CHEK COMFORT CURVE STRIP VI SCH ×4 (06:44→22:00)
[2020-06-29] MEDS: INSULIN LANTUS (GLARGINE) 1 /0.01ml (100units/ml) SC SCH (10:00)
[2020-06-29] MEDS: BUDESONIDE (INHALATION) 0.5 MG/2 ML NEB NEB SCH ×2 (10:00→21:42)
[2020-06-29] MEDS: FUROSEMIDE 40 MG/4 ML VIAL IV SCH (10:48)
[2020-06-29] MEDS: cefTRIAXone 1GM/50ML D5W 50 ML IV SCH (10:48)
[2020-06-29] MEDS: DOPamine 1600MCG/ML D5W 250 ML IV SCH ×3 (10:49→20:15)
[2020-06-29] MEDS: FAMOTIDINE 20 MG TAB PO SCH ×2 (10:49→22:00)
[2020-06-29 10:50] LABS: Basophils # (auto) 0 10 ^3/uL (0-0.2); Eosinophils # (auto) 0.5 10 ^3/uL (0-0.8); Lymphocytes # (auto) 1.9 10 ^3/uL (0.4-5.4); Mean Corpuscular Hgb Conc. 33.8 g/dL (32.0-36.0); Red Blood Cells 5.48 10^6/uL (4.5-5.90); White Blood Cell 13.2 10^3/uL (4.4-10.8)
[2020-06-29 10:53] LABS: Hematocrit 40.8 % (41.0-53.0); Hemoglobin 13.8 g/dL (13.5-17.5); Lymphocytes % (auto) 14.6 % (10.0-50.0); Mean Corpuscular Hemoglobin 25.2 pg (28.0-32.0); Mean Corpuscular Volume 74.6 fL (80.0-100.0); Monocytes # (auto) 0.6 10 ^3/uL (0-1.3); Monocytes % (auto) 4.9 % (0.0-12.0); Neutrophils # (auto) 10.1 10 ^3/uL (1.6-8.6); Neutrophils % (auto) 76.5 % (37.0-80.0); Nucleated Red Blood Cells % 0.1 %; Red Cell Distribution Width 15.1 % (11.8-14.3)
[2020-06-29 10:58] LABS: Albumin 2.2 g/dL (3.4-5.0); Calcium 7.5 mg/dL (8.5-10.1); Potassium 3.1 mmol/L (3.5-5.1)
[2020-06-29 11:01] LABS: BUN/Creatinine Ratio 30.6; Bilirubin, Total 0.6 mg/dL (0.2-1.0); Total Protein 5.6 g/dL (6.4-8.2)
[2020-06-29] MEDS: POTASSIUM CHL 20MEQ/100ML 100 ML IV SCH ×2 (13:00→16:29)
[2020-06-29] MEDS: Glucerna 1.2 Cal 1Liter BOTTLE GT SCH (19:00)
[2020-06-29] MEDS: PHENYLEPHRINE INJ 40 MG in SODIUM CHL 0.9% 250 ML IV SCH (19:30)
[2020-06-29] MEDS ORDERED: PHENYLEPHRINE IV 250 ML IV ONE (21:52)
[2020-06-29] MEDS: ATORVASTATIN 20 MG TAB GT SCH (22:00)
[2020-06-29] MEDS ORDERED: PHENYLEPHRINE HCL 10 MG/ML VL ONE (22:00)
[2020-06-30] VITALS (90 sets, daily range): BP systolic 75–126; BP diastolic 49–77
[2020-06-30] MEDS: DOPamine 1600MCG/ML D5W 250 ML IV SCH ×4 (01:00→22:00)
[2020-06-30] MEDS: fentaNYL Drip 2500mCg/250mlNS 250 ML IV SCH ×3 (01:40→20:15)
[2020-06-30] MEDS ORDERED: PHENYLEPHRINE HCL 10 MG/ML VL ONE (02:11)
[2020-06-30] MEDS ORDERED: PHENYLEPHRINE IV 250 ML IV ONE (02:11)
[2020-06-30] MEDS: PHENYLEPHRINE INJ 40 MG in SODIUM CHL 0.9% 250 ML IV SCH ×3 (04:00→20:00)
[2020-06-30 05:30] LABS: INR 1.24 (0.9-1.15); Partial Thromboplastin Time 29.6 sec (23.0-31.2)
[2020-06-30] MEDS: MIDAZOLAM DRIP 50 mg/50mL 50 ML IV SCH ×4 (06:00→22:00)
[2020-06-30] MEDS: InsuLIN REG 1unit/0.01ml Soln (100units/ml) SC SCH ×4 (06:44→21:43)
[2020-06-30] MEDS: ACCU-CHEK COMFORT CURVE STRIP VI SCH ×4 (07:00→21:43)
[2020-06-30] MEDS: ALBUTEROL SULF 2.5 MG/0.5ML(0.5%) NEB SOLN NEB SCH ×3 (08:04→18:55)
[2020-06-30] MEDS: BUDESONIDE (INHALATION) 0.5 MG/2 ML NEB NEB SCH ×2 (08:04→18:55)
[2020-06-30] MEDS: cefTRIAXone 1GM/50ML D5W 50 ML IV SCH (09:00)
[2020-06-30] MEDS: FUROSEMIDE 40 MG/4 ML VIAL IV SCH (10:00)
[2020-06-30] MEDS: INSULIN LANTUS (GLARGINE) 1 /0.01ml (100units/ml) SC SCH (10:00)
[2020-06-30] MEDS: FAMOTIDINE 20 MG TAB PO SCH ×2 (10:00→21:43)
[2020-06-30] MEDS: POTASSIUM CHL 20MEQ/100ML 100 ML IV SCH (10:00)
[2020-06-30] MEDS: ACETAMINOPHEN 650 mg PER 20.3 mL UD PO PRN (11:54)
[2020-06-30 14:53] LABS: Hematocrit 39.5 % (41.0-53.0); Hemoglobin 13.4 g/dL (13.5-17.5); Mean Corpuscular Hemoglobin 25.4 pg (28.0-32.0); Mean Corpuscular Hgb Conc. 33.9 g/dL (32.0-36.0); Mean Corpuscular Volume 74.8 fL (80.0-100.0); Red Blood Cells 5.28 10^6/uL (4.5-5.90); White Blood Cell 14.3 10^3/uL (4.4-10.8)
[2020-06-30 14:55] LABS: Basophils % (manual) 0 (0.0-2.0); Blast Cells 0; Metamyelocytes % 0; Myelocytes % 0; Promyelocytes % 0; Reactive Lymphocytes 0
[2020-06-30 15:26] LABS: BUN/Creatinine Ratio 24.4; Calcium 7.3 mg/dL (8.5-10.1); Magnesium 1.4 mg/dL (1.6-2.6); Potassium 3.8 mmol/L (3.5-5.1)
[2020-06-30 18:26] LABS: Band Neutrophils % (manual) 5; Eosinophils % (manual) 3 (0-7); Lymphocytes % (manual) 3 (10.0-50.0); Monocytes % (manual) 3 (0-12)
[2020-06-30] MEDS: ATORVASTATIN 20 MG TAB GT SCH (21:43)
[2020-07-01] VITALS (94 sets, daily range): BP systolic 73–133; BP diastolic 41–77
[2020-07-01] MEDS ORDERED: PHENYLEPHRINE HCL 10 MG/ML VL ONE ×2 (03:33→07:03)
[2020-07-01] MEDS ORDERED: PHENYLEPHRINE IV 250 ML IV ONE ×2 (03:33→07:03)
[2020-07-01] MEDS: MIDAZOLAM DRIP 50 mg/50mL 50 ML IV SCH ×3 (05:00→21:40)
[2020-07-01] MEDS: DOPamine 1600MCG/ML D5W 250 ML IV SCH ×3 (05:05→17:57)
[2020-07-01] MEDS: InsuLIN REG 1unit/0.01ml Soln (100units/ml) SC SCH ×4 (07:00→21:41)
[2020-07-01] MEDS: PHENYLEPHRINE INJ 40 MG in SODIUM CHL 0.9% 250 ML IV SCH ×7 (07:08→23:45)
[2020-07-01] MEDS: ACCU-CHEK COMFORT CURVE STRIP VI SCH ×4 (07:08→21:41)
[2020-07-01] MEDS: BUDESONIDE (INHALATION) 0.5 MG/2 ML NEB NEB SCH ×3 (07:50→19:05)
[2020-07-01] MEDS: ALBUTEROL SULF 2.5 MG/0.5ML(0.5%) NEB SOLN NEB SCH ×3 (07:50→19:05)
[2020-07-01] MEDS: cefTRIAXone 1GM/50ML D5W 50 ML IV SCH (09:01)
[2020-07-01] MEDS: INSULIN LANTUS (GLARGINE) 1 /0.01ml (100units/ml) SC SCH (10:00)
[2020-07-01] MEDS: POTASSIUM CHL 20MEQ/100ML 100 ML IV SCH (10:22)
[2020-07-01] MEDS: FAMOTIDINE 20 MG TAB PO SCH ×2 (10:23→22:00)
[2020-07-01] MEDS: FUROSEMIDE 40 MG/4 ML VIAL IV SCH (10:23)
[2020-07-01] MEDS: fentaNYL Drip 2500mCg/250mlNS 250 ML IV SCH (15:00)
[2020-07-01] MEDS: ATORVASTATIN 20 MG TAB GT SCH (22:00)
[2020-07-02] VITALS (102 sets, daily range): BP systolic 71–161; BP diastolic 42–84
[2020-07-02] MEDS: DOPamine 1600MCG/ML D5W 250 ML IV SCH (02:07)
[2020-07-02] MEDS: fentaNYL Drip 2500mCg/250mlNS 250 ML IV SCH (02:08)
[2020-07-02] MEDS: PHENYLEPHRINE INJ 40 MG in SODIUM CHL 0.9% 250 ML IV SCH ×4 (02:09→22:00)
[2020-07-02] MEDS: ACCU-CHEK COMFORT CURVE STRIP VI SCH ×4 (06:04→21:22)
[2020-07-02] MEDS: BUDESONIDE (INHALATION) 0.5 MG/2 ML NEB NEB SCH ×2 (06:27→22:00)
[2020-07-02] MEDS: ALBUTEROL SULF 2.5 MG/0.5ML(0.5%) NEB SOLN NEB SCH ×3 (06:27→22:00)
[2020-07-02] MEDS: InsuLIN REG 1unit/0.01ml Soln (100units/ml) SC SCH ×4 (06:51→21:23)
[2020-07-02] MEDS: MIDAZOLAM DRIP 50 mg/50mL 50 ML IV SCH (06:53)
[2020-07-02 08:07] LABS: Potassium 3.8 mmol/L (3.5-5.1)
[2020-07-02 08:41] LABS: BUN/Creatinine Ratio 29.2; Calcium 7.7 mg/dL (8.5-10.1)
[2020-07-02] MEDS: cefTRIAXone 1GM/50ML D5W 50 ML IV SCH (09:00)
[2020-07-02] MEDS: POTASSIUM CHL 20MEQ/100ML 100 ML IV SCH (10:00)
[2020-07-02] MEDS: FUROSEMIDE 40 MG/4 ML VIAL IV SCH (10:00)
[2020-07-02] MEDS: FAMOTIDINE 20 MG TAB PO SCH ×2 (10:00→21:22)
[2020-07-02] MEDS ORDERED: PHENYLEPHRINE IV 250 ML IV ONE ×3 (11:58→18:26)
[2020-07-02] MEDS ORDERED: PHENYLEPHRINE HCL 10 MG/ML VL ONE ×3 (11:58→18:26)
[2020-07-02] MEDS: INSULIN LANTUS (GLARGINE) 1 /0.01ml (100units/ml) SC SCH (13:14)
[2020-07-02] MEDS: ATORVASTATIN 20 MG TAB GT SCH (21:22)
[2020-07-03] VITALS (96 sets, daily range): BP systolic 81–159; BP diastolic 54–83
[2020-07-03] MEDS: DOPamine 1600MCG/ML D5W 250 ML IV SCH ×3 (01:11→20:02)
[2020-07-03] MEDS: PHENYLEPHRINE INJ 40 MG in SODIUM CHL 0.9% 250 ML IV SCH ×4 (02:39→20:00)
[2020-07-03 04:36] LABS: Basophils # (auto) 0 10 ^3/uL (0-0.2); Basophils % (auto) 0.4 % (0.0-2.0); Eosinophils # (auto) 0.3 10 ^3/uL (0-0.8); Eosinophils % (auto) 2.5 % (0.0-7.0); Hematocrit 36.5 % (41.0-53.0); Hemoglobin 12.3 g/dL (13.5-17.5); Lymphocytes % (auto) 9.6 % (10.0-50.0); Mean Corpuscular Hemoglobin 25.5 pg (28.0-32.0); Mean Corpuscular Hgb Conc. 33.7 g/dL (32.0-36.0); Mean Corpuscular Volume 75.5 fL (80.0-100.0); Monocytes # (auto) 0.5 10 ^3/uL (0-1.3); Monocytes % (auto) 4.7 % (0.0-12.0); Neutrophils # (auto) 8.7 10 ^3/uL (1.6-8.6); Neutrophils % (auto) 82.8 % (37.0-80.0); Red Blood Cells 4.83 10^6/uL (4.5-5.90); Red Cell Distribution Width 15.6 % (11.8-14.3); White Blood Cell 10.5 10^3/uL (4.4-10.8)
[2020-07-03 04:49] LABS: Chloride 96 mmol/L (98-107); Sodium 134 mmol/L (136-145)
[2020-07-03 05:03] LABS: Alanine Aminotransferase 47 U/L (16-61); Albumin 1.6 g/dL (3.4-5.0); Alkaline Phosphatase 232 U/L (45-117); Anion Gap 5 (5-15); Aspartate Aminotransferase 26 U/L (15-37); BUN/Creatinine Ratio 23.1; Bilirubin, Total 0.4 mg/dL (0.2-1.0); Blood Urea Nitrogen 6 mg/dL (7-18); Calcium 7.6 mg/dL (8.5-10.1); Carbon Dioxide 33 mmol/L (21-32); GFR African American 456 mL/min; GFR Non-African American 377 mL/min; Glucose 152 mg/dL (74-106); Total Protein 5.5 g/dL (6.4-8.2)
[2020-07-03 05:29] LABS: CRP High Sensitivity > 19.0 mg/dL (< 0.3)
[2020-07-03] MEDS: ACCU-CHEK COMFORT CURVE STRIP VI SCH ×4 (06:27→22:00)
[2020-07-03] MEDS: InsuLIN REG 1unit/0.01ml Soln (100units/ml) SC SCH ×4 (07:09→22:00)
[2020-07-03] MEDS: cefTRIAXone 1GM/50ML D5W 50 ML IV SCH (09:42)
[2020-07-03] MEDS: POTASSIUM CHL 20MEQ/100ML 100 ML IV SCH (09:42)
[2020-07-03] MEDS: FUROSEMIDE 40 MG/4 ML VIAL IV SCH (09:56)
[2020-07-03] MEDS: FAMOTIDINE 20 MG TAB PO SCH ×2 (09:56→22:00)
[2020-07-03] MEDS: BUDESONIDE (INHALATION) 0.5 MG/2 ML NEB NEB SCH ×2 (09:59→22:00)
[2020-07-03] MEDS: ALBUTEROL SULF 2.5 MG/0.5ML(0.5%) NEB SOLN NEB SCH ×2 (09:59→22:00)
[2020-07-03] MEDS: INSULIN LANTUS (GLARGINE) 1 /0.01ml (100units/ml) SC SCH (10:00)
[2020-07-03] MEDS: MIDAZOLAM DRIP 50 mg/50mL 50 ML IV SCH ×3 (12:00→21:00)
[2020-07-03] MEDS: ACETAMINOPHEN 650 mg PER 20.3 mL UD PO PRN (13:24)
[2020-07-03] MEDS ORDERED: PHENYLEPHRINE HCL 10 MG/ML VL ONE (18:07)
[2020-07-03] MEDS ORDERED: PHENYLEPHRINE IV 250 ML IV ONE (18:08)
[2020-07-03] MEDS: Glucerna 1.2 Cal 1Liter BOTTLE GT SCH (19:00)
[2020-07-03] MEDS ORDERED: EPINEPHrine HCL 250 ML IV SCH (19:00)
[2020-07-03] MEDS ORDERED: NOREPINEPHRINE 8 MG/250ML KIT 250 ML IV SCH (19:00)
[2020-07-03] MEDS: fentaNYL Drip 2500mCg/250mlNS 250 ML IV SCH ×2 (20:00)
[2020-07-03] MEDS: ENOXAPARIN SOD 40 MG/0.4 ML SYRINGE SC SCH (22:00)
[2020-07-03] MEDS: ATORVASTATIN 20 MG TAB GT SCH (22:00)
[2020-07-04] VITALS (97 sets, daily range): BP systolic 78–145; BP diastolic 52–79
[2020-07-04] MEDS: PHENYLEPHRINE INJ 40 MG in SODIUM CHL 0.9% 250 ML IV SCH ×4 (01:00→21:30)
[2020-07-04] MEDS: ACCU-CHEK COMFORT CURVE STRIP VI SCH ×4 (06:09→22:00)
[2020-07-04] MEDS: InsuLIN REG 1unit/0.01ml Soln (100units/ml) SC SCH ×4 (06:53→22:00)
[2020-07-04] MEDS: ALBUTEROL SULF 2.5 MG/0.5ML(0.5%) NEB SOLN NEB SCH ×3 (07:50→19:08)
[2020-07-04] MEDS: BUDESONIDE (INHALATION) 0.5 MG/2 ML NEB NEB SCH ×2 (07:50→19:08)
[2020-07-04] MEDS: cefTRIAXone 1GM/50ML D5W 50 ML IV SCH (08:14)
[2020-07-04] MEDS: POTASSIUM CHL 20MEQ/100ML 100 ML IV SCH (10:00)
[2020-07-04] MEDS: FUROSEMIDE 40 MG/4 ML VIAL IV SCH (10:12)
[2020-07-04] MEDS: FAMOTIDINE 20 MG TAB PO SCH ×2 (10:12→22:00)
[2020-07-04] MEDS: ENOXAPARIN SOD 40 MG/0.4 ML SYRINGE SC SCH ×2 (10:13→22:00)
[2020-07-04] MEDS: INSULIN LANTUS (GLARGINE) 1 /0.01ml (100units/ml) SC SCH (10:13)
[2020-07-04 11:06] LABS: Magnesium 1.4 mg/dL (1.6-2.6); Potassium 3.7 mmol/L (3.5-5.1)
[2020-07-04] MEDS: MAGNESIUM SULFATE 1GM/100ML 100 ML IV SCH ×4 (12:35→17:26)
[2020-07-04] MEDS: DOPamine 1600MCG/ML D5W 250 ML IV SCH ×2 (13:10→22:00)
[2020-07-04] MEDS: Glucerna 1.2 Cal 1Liter BOTTLE GT SCH (19:00)
[2020-07-04] MEDS: ATORVASTATIN 20 MG TAB GT SCH (22:00)
[2020-07-04] MEDS: MIDAZOLAM DRIP 50 mg/50mL 50 ML IV SCH (22:00)
[2020-07-04] MEDS: fentaNYL Drip 2500mCg/250mlNS 250 ML IV SCH (23:17)
[2020-07-05] VITALS (97 sets, daily range): BP systolic 78–134; BP diastolic 49–84
[2020-07-05 03:35] LABS: Basophils # (auto) 0.1 10 ^3/uL (0-0.2); Basophils % (auto) 0.6 % (0.0-2.0); Eosinophils # (auto) 0.2 10 ^3/uL (0-0.8); Eosinophils % (auto) 1.8 % (0.0-7.0); Hemoglobin 11.3 g/dL (13.5-17.5); Lymphocytes # (auto) 0.9 10 ^3/uL (0.4-5.4); Lymphocytes % (auto) 9.8 % (10.0-50.0); Mean Corpuscular Hemoglobin 25.2 pg (28.0-32.0); Mean Corpuscular Hgb Conc. 33.3 g/dL (32.0-36.0); Mean Corpuscular Volume 75.5 fL (80.0-100.0); Monocytes # (auto) 0.4 10 ^3/uL (0-1.3); Monocytes % (auto) 4.2 % (0.0-12.0); Neutrophils # (auto) 8.1 10 ^3/uL (1.6-8.6); Neutrophils % (auto) 83.6 % (37.0-80.0); Nucleated Red Blood Cells % 0.1 %; Red Blood Cells 4.49 10^6/uL (4.5-5.90); Red Cell Distribution Width 15.4 % (11.8-14.3); White Blood Cell 9.7 10^3/uL (4.4-10.8)
[2020-07-05 03:48] LABS: Albumin 1.6 g/dL (3.4-5.0); Calcium 7.7 mg/dL (8.5-10.1); INR 1.03 (0.9-1.15); Partial Thromboplastin Time 27.3 sec (23.0-31.2); Potassium 4.3 mmol/L (3.5-5.1)
[2020-07-05 03:52] LABS: BUN/Creatinine Ratio 28.9; Bilirubin, Total 0.3 mg/dL (0.2-1.0); Total Protein 5.6 g/dL (6.4-8.2)
[2020-07-05] MEDS: DOPamine 1600MCG/ML D5W 250 ML IV SCH (06:00)
[2020-07-05] MEDS: InsuLIN REG 1unit/0.01ml Soln (100units/ml) SC SCH ×4 (06:29→22:00)
[2020-07-05] MEDS: ACCU-CHEK COMFORT CURVE STRIP VI SCH ×4 (06:29→22:00)
[2020-07-05] MEDS: ALBUTEROL SULF 2.5 MG/0.5ML(0.5%) NEB SOLN NEB SCH ×2 (07:14→22:03)
[2020-07-05] MEDS: BUDESONIDE (INHALATION) 0.5 MG/2 ML NEB NEB SCH ×2 (07:14→22:03)
[2020-07-05] MEDS: cefTRIAXone 1GM/50ML D5W 50 ML IV SCH (09:00)
[2020-07-05] MEDS: FAMOTIDINE 20 MG TAB PO SCH ×2 (10:00→22:00)
[2020-07-05] MEDS: ENOXAPARIN SOD 40 MG/0.4 ML SYRINGE SC SCH ×2 (10:00→22:00)
[2020-07-05] MEDS: FUROSEMIDE 40 MG/4 ML VIAL IV SCH (10:15)
[2020-07-05] MEDS: MIDAZOLAM DRIP 50 mg/50mL 50 ML IV SCH (11:00)
[2020-07-05] MEDS: POTASSIUM CHL 20MEQ/100ML 100 ML IV SCH (11:24)
[2020-07-05] MEDS: INSULIN LANTUS (GLARGINE) 1 /0.01ml (100units/ml) SC SCH (11:31)
[2020-07-05] MEDS: Glucerna 1.2 Cal 1Liter BOTTLE GT SCH (19:00)
[2020-07-05] MEDS: PHENYLEPHRINE INJ 40 MG in SODIUM CHL 0.9% 250 ML IV SCH (20:00)
[2020-07-05] MEDS: fentaNYL Drip 2500mCg/250mlNS 250 ML IV SCH (20:41)
[2020-07-05] MEDS: ATORVASTATIN 20 MG TAB GT SCH (22:00)
[2020-07-05 23:06] LABS: Urine Bacteria NONE SEEN /hpf (None Seen); Urine Blood 1+ /uL (Negative); Urine Budding Yeast LOADED /hpf (None Seen); Urine Hyaline Cast FEW /lpf (0 - 2); Urine Mucus FEW (None Seen); Urine Specific Gravity 1.011 (1.001-1.035); Urine WBC 687 /hpf (0 - 3); Urine WBC Clumps PRESENT /hpf (None Seen)
[2020-07-06] VITALS (90 sets, daily range): BP systolic 67–140; BP diastolic 34–96
[2020-07-06] MEDS: MIDAZOLAM DRIP 50 mg/50mL 50 ML IV SCH ×2 (02:00→20:00)
[2020-07-06] MEDS: PHENYLEPHRINE INJ 40 MG in SODIUM CHL 0.9% 250 ML IV SCH ×3 (02:21→23:00)
[2020-07-06] MEDS: DOPamine 1600MCG/ML D5W 250 ML IV SCH (03:00)
[2020-07-06] MEDS: ALBUTEROL SULF 2.5 MG/0.5ML(0.5%) NEB SOLN NEB SCH ×3 (06:00→22:00)
[2020-07-06] MEDS: ACCU-CHEK COMFORT CURVE STRIP VI SCH ×4 (06:20→22:00)
[2020-07-06] MEDS: InsuLIN REG 1unit/0.01ml Soln (100units/ml) SC SCH ×4 (06:43→22:00)
[2020-07-06] MEDS: fentaNYL Drip 2500mCg/250mlNS 250 ML IV SCH (07:05)
[2020-07-06 07:29] LABS: Basophils # (auto) 0.1 10 ^3/uL (0-0.2); Basophils % (auto) 0.7 % (0.0-2.0); Eosinophils # (auto) 0.2 10 ^3/uL (0-0.8); Hematocrit 31.6 % (41.0-53.0)
[2020-07-06 07:33] LABS: Eosinophils % (auto) 2.5 % (0.0-7.0); Hemoglobin 10.5 g/dL (13.5-17.5); Lymphocytes # (auto) 1.2 10 ^3/uL (0.4-5.4); Lymphocytes % (auto) 13.4 % (10.0-50.0); Mean Corpuscular Hemoglobin 25.1 pg (28.0-32.0); Mean Corpuscular Hgb Conc. 33.1 g/dL (32.0-36.0); Mean Corpuscular Volume 75.8 fL (80.0-100.0); Monocytes # (auto) 0.4 10 ^3/uL (0-1.3); Monocytes % (auto) 4.7 % (0.0-12.0); Neutrophils # (auto) 7.3 10 ^3/uL (1.6-8.6); Neutrophils % (auto) 78.7 % (37.0-80.0); Red Blood Cells 4.18 10^6/uL (4.5-5.90); Red Cell Distribution Width 15.4 % (11.8-14.3); White Blood Cell 9.3 10^3/uL (4.4-10.8)
[2020-07-06 07:44] LABS: INR 1.03 (0.9-1.15)
[2020-07-06 07:48] LABS: Potassium 3.6 mmol/L (3.5-5.1)
[2020-07-06 07:58] LABS: Albumin 1.6 g/dL (3.4-5.0); Bilirubin, Total 0.2 mg/dL (0.2-1.0); Calcium 8.1 mg/dL (8.5-10.1); Total Protein 5.7 g/dL (6.4-8.2)
[2020-07-06] MEDS: cefTRIAXone 1GM/50ML D5W 50 ML IV SCH ×2 (09:00→11:10)
[2020-07-06] MEDS: LIDOCAINE W/ EPINEPHRINE 1% 20ML VIAL ONE ×2 (09:34→11:06)
[2020-07-06] MEDS ORDERED: cefTRIAXone SOD 1,000 MG VL ONE (09:50)
[2020-07-06] MEDS: BUDESONIDE (INHALATION) 0.5 MG/2 ML NEB NEB SCH ×2 (10:00→22:00)
[2020-07-06] MEDS: INSULIN LANTUS (GLARGINE) 1 /0.01ml (100units/ml) SC SCH (10:00)
[2020-07-06] MEDS: ENOXAPARIN SOD 40 MG/0.4 ML SYRINGE SC SCH ×2 (10:00→22:00)
[2020-07-06] MEDS: FAMOTIDINE 20 MG TAB PO SCH ×2 (10:00→22:00)
[2020-07-06] MEDS: FUROSEMIDE 40 MG/4 ML VIAL IV SCH (10:15)
[2020-07-06] MEDS ORDERED: fentaNYL CITRATE 100 MCG/2 ML VL ONE (10:30)
[2020-07-06] MEDS ORDERED: HYDROmorphone HCL 2 MG/ML VL ONE (10:30)
[2020-07-06] MEDS ORDERED: MIDAZOLAM HCL 2MG/2ML 2ml VIAL (1mg/ml) ONE (10:30)
[2020-07-06] MEDS ORDERED: PROPOFOL 10 MG/ML 20 ML IV ONE (10:41)
[2020-07-06] MEDS ORDERED: DexAMETHasone SOD PHOS 10MG/1ML VIAL INJ ONE (10:41)
[2020-07-06] MEDS: POTASSIUM CHL 20MEQ/100ML 100 ML IV SCH (13:00)
[2020-07-06] MEDS: ATORVASTATIN 20 MG TAB GT SCH (22:00)
[2020-07-06] MEDS: SODIUM CHLOR 0.9% PF (SALINE LOCK) 10ML VIAL/SYR IV SCH (22:00)
[2020-07-07] VITALS (101 sets, daily range): BP systolic 69–134; BP diastolic 38–80
[2020-07-07] MEDS: InsuLIN REG 1unit/0.01ml Soln (100units/ml) SC SCH ×4 (07:00→22:00)
[2020-07-07] MEDS: ACCU-CHEK COMFORT CURVE STRIP VI SCH ×4 (07:00→22:00)
[2020-07-07] MEDS: BUDESONIDE (INHALATION) 0.5 MG/2 ML NEB NEB SCH ×2 (07:10→08:06)
[2020-07-07] MEDS: ALBUTEROL SULF 2.5 MG/0.5ML(0.5%) NEB SOLN NEB SCH ×2 (07:10→08:06)
[2020-07-07] MEDS: cefTRIAXone 1GM/50ML D5W 50 ML IV SCH (08:47)
[2020-07-07] MEDS: INSULIN LANTUS (GLARGINE) 1 /0.01ml (100units/ml) SC SCH (08:47)
[2020-07-07] MEDS: POTASSIUM CHL 20MEQ/100ML 100 ML IV SCH (10:00)
[2020-07-07] MEDS: FUROSEMIDE 40 MG/4 ML VIAL IV SCH (10:00)
[2020-07-07] MEDS: FAMOTIDINE 20 MG TAB PO SCH ×2 (10:00→22:00)
[2020-07-07] MEDS: ENOXAPARIN SOD 40 MG/0.4 ML SYRINGE SC SCH ×2 (10:00→22:00)
[2020-07-07] MEDS: SODIUM CHLOR 0.9% PF (SALINE LOCK) 10ML VIAL/SYR IV SCH ×2 (10:00→22:00)
[2020-07-07] MEDS: DOPamine 1600MCG/ML D5W 250 ML IV SCH (15:19)
[2020-07-07] MEDS: PHENYLEPHRINE INJ 40 MG in SODIUM CHL 0.9% 250 ML IV SCH (20:00)
[2020-07-07] MEDS: ACETAMINOPHEN 650 mg PER 20.3 mL UD PO PRN (20:00)
[2020-07-07] MEDS: Glucerna 1.2 Cal 1Liter BOTTLE GT SCH (20:30)
[2020-07-07] MEDS: MIDAZOLAM DRIP 50 mg/50mL 50 ML IV SCH (21:00)
[2020-07-07] MEDS: ATORVASTATIN 20 MG TAB GT SCH (22:00)
[2020-07-07] MEDS: fentaNYL Drip 2500mCg/250mlNS 250 ML IV SCH (22:00)
[2020-07-08] VITALS (96 sets, daily range): BP systolic 76–161; BP diastolic 47–79
[2020-07-08] MEDS: PHENYLEPHRINE INJ 40 MG in SODIUM CHL 0.9% 250 ML IV SCH ×4 (00:10→06:53)
[2020-07-08] MEDS: ACETAMINOPHEN 650 mg PER 20.3 mL UD PO PRN (01:45)
[2020-07-08] MEDS: BUDESONIDE (INHALATION) 0.5 MG/2 ML NEB NEB SCH ×2 (06:13→19:39)
[2020-07-08] MEDS: ALBUTEROL SULF 2.5 MG/0.5ML(0.5%) NEB SOLN NEB SCH ×3 (06:13→19:39)
[2020-07-08] MEDS: InsuLIN REG 1unit/0.01ml Soln (100units/ml) SC SCH ×4 (06:56→21:52)
[2020-07-08] MEDS: ACCU-CHEK COMFORT CURVE STRIP VI SCH ×4 (06:56→21:53)
[2020-07-08] MEDS: DOPamine 1600MCG/ML D5W 250 ML IV SCH ×2 (07:00→23:54)
[2020-07-08] MEDS: fentaNYL Drip 2500mCg/250mlNS 250 ML IV SCH (09:02)
[2020-07-08] MEDS: cefTRIAXone 1GM/50ML D5W 50 ML IV SCH (09:09)
[2020-07-08] MEDS: FUROSEMIDE 40 MG/4 ML VIAL IV SCH (09:09)
[2020-07-08] MEDS: SODIUM CHLOR 0.9% PF (SALINE LOCK) 10ML VIAL/SYR IV SCH ×2 (09:10→21:16)
[2020-07-08] MEDS: ENOXAPARIN SOD 40 MG/0.4 ML SYRINGE SC SCH ×2 (09:11→21:17)
[2020-07-08] MEDS: FAMOTIDINE 20 MG TAB PO SCH ×2 (09:11→21:16)
[2020-07-08] MEDS: INSULIN LANTUS (GLARGINE) 1 /0.01ml (100units/ml) SC SCH (10:00)
[2020-07-08] MEDS: POTASSIUM CHL 20MEQ/100ML 100 ML IV SCH ×4 (11:00→17:37)
[2020-07-08 11:57] LABS: Eosinophils # (auto) 0.3 10 ^3/uL (0-0.8); Monocytes # (auto) 0.5 10 ^3/uL (0-1.3); Monocytes % (auto) 4.5 % (0.0-12.0); Neutrophils # (auto) 8.8 10 ^3/uL (1.6-8.6); White Blood Cell 11.3 10^3/uL (4.4-10.8)
[2020-07-08 12:01] LABS: Basophils # (auto) 0 10 ^3/uL (0-0.2); Basophils % (auto) 0.4 % (0.0-2.0); Eosinophils % (auto) 2.3 % (0.0-7.0); Hematocrit 30.9 % (41.0-53.0); Hemoglobin 10.3 g/dL (13.5-17.5); Lymphocytes # (auto) 1.7 10 ^3/uL (0.4-5.4); Lymphocytes % (auto) 14.8 % (10.0-50.0); Mean Corpuscular Hemoglobin 25.1 pg (28.0-32.0); Mean Corpuscular Hgb Conc. 33.4 g/dL (32.0-36.0); Mean Corpuscular Volume 75.1 fL (80.0-100.0); Red Blood Cells 4.11 10^6/uL (4.5-5.90); Red Cell Distribution Width 15.4 % (11.8-14.3)
[2020-07-08 12:18] LABS: Calcium 7.6 mg/dL (8.5-10.1)
[2020-07-08 12:20] LABS: BUN/Creatinine Ratio 39.1
[2020-07-08 12:39] LABS: Potassium 2.8 mmol/L (3.5-5.1)
[2020-07-08] MEDS: NOREPINEPHRINE 8 MG/250ML KIT 250 ML IV SCH (14:00)
[2020-07-08] MEDS: MIDAZOLAM DRIP 50 mg/50mL 50 ML IV SCH (18:23)
[2020-07-08] MEDS: MAGNESIUM SULFATE 1GM/100ML 100 ML IV SCH ×3 (19:00→21:00)
[2020-07-08] MEDS: ATORVASTATIN 20 MG TAB GT SCH (21:16)
[2020-07-09] VITALS (84 sets, daily range): BP systolic 85–137; BP diastolic 51–76
[2020-07-09 03:59] LABS: Basophils # (auto) 0 10 ^3/uL (0-0.2); Eosinophils # (auto) 0.3 10 ^3/uL (0-0.8); Hemoglobin 9.6 g/dL (13.5-17.5); Lymphocytes # (auto) 1.5 10 ^3/uL (0.4-5.4); Monocytes # (auto) 0.5 10 ^3/uL (0-1.3); Neutrophils # (auto) 7.3 10 ^3/uL (1.6-8.6)
[2020-07-09 04:03] LABS: Basophils % (auto) 0.5 % (0.0-2.0); Eosinophils % (auto) 2.8 % (0.0-7.0); Hematocrit 28.5 % (41.0-53.0); Lymphocytes % (auto) 15.5 % (10.0-50.0); Mean Corpuscular Hemoglobin 25.6 pg (28.0-32.0); Mean Corpuscular Hgb Conc. 33.8 g/dL (32.0-36.0); Mean Corpuscular Volume 75.6 fL (80.0-100.0); Neutrophils % (auto) 76.2 % (37.0-80.0); Nucleated Red Blood Cells % 0.1 %; Red Blood Cells 3.76 10^6/uL (4.5-5.90); Red Cell Distribution Width 15.2 % (11.8-14.3); White Blood Cell 9.5 10^3/uL (4.4-10.8)
[2020-07-09 04:14] LABS: Potassium 3.9 mmol/L (3.5-5.1)
[2020-07-09 04:22] LABS: Albumin 1.7 g/dL (3.4-5.0); BUN/Creatinine Ratio 29.6; Bilirubin, Total 0.3 mg/dL (0.2-1.0); Calcium 7.3 mg/dL (8.5-10.1); Magnesium 1.9 mg/dL (1.6-2.6); Total Protein 5.6 g/dL (6.4-8.2)
[2020-07-09] MEDS: InsuLIN REG 1unit/0.01ml Soln (100units/ml) SC SCH ×4 (06:06→22:00)
[2020-07-09] MEDS: ACCU-CHEK COMFORT CURVE STRIP VI SCH ×4 (06:06→22:00)
[2020-07-09] MEDS: BUDESONIDE (INHALATION) 0.5 MG/2 ML NEB NEB SCH ×2 (07:30→21:37)
[2020-07-09] MEDS: ALBUTEROL SULF 2.5 MG/0.5ML(0.5%) NEB SOLN NEB SCH ×3 (07:30→21:37)
[2020-07-09] MEDS: INSULIN LANTUS (GLARGINE) 1 /0.01ml (100units/ml) SC SCH (10:00)
[2020-07-09] MEDS: POTASSIUM CHL 20MEQ/100ML 100 ML IV SCH (10:27)
[2020-07-09] MEDS: cefTRIAXone 1GM/50ML D5W 50 ML IV SCH (10:27)
[2020-07-09] MEDS: FUROSEMIDE 40 MG/4 ML VIAL IV SCH (10:28)
[2020-07-09] MEDS: FAMOTIDINE 20 MG TAB PO SCH ×2 (10:28→21:57)
[2020-07-09] MEDS: SODIUM CHLOR 0.9% PF (SALINE LOCK) 10ML VIAL/SYR IV SCH ×2 (10:28→21:57)
[2020-07-09] MEDS: ENOXAPARIN SOD 40 MG/0.4 ML SYRINGE SC SCH ×2 (10:29→21:58)
[2020-07-09] MEDS: NOREPINEPHRINE 8 MG/250ML KIT 250 ML IV SCH (13:00)
[2020-07-09] MEDS: fentaNYL Drip 2500mCg/250mlNS 250 ML IV SCH (20:15)
[2020-07-09] MEDS: ATORVASTATIN 20 MG TAB GT SCH (21:57)
[2020-07-09] MEDS: FLUDROCORTISONE ACETATE 0.1 MG TAB PO SCH (21:57)
[2020-07-10] VITALS (96 sets, daily range): BP systolic 88–135; BP diastolic 50–80
[2020-07-10 04:37] LABS: Basophils # (auto) 0 10 ^3/uL (0-0.2); Eosinophils # (auto) 0.3 10 ^3/uL (0-0.8); Hemoglobin 10.1 g/dL (13.5-17.5); Lymphocytes # (auto) 1.7 10 ^3/uL (0.4-5.4); Mean Corpuscular Hemoglobin 25.5 pg (28.0-32.0); Monocytes # (auto) 0.5 10 ^3/uL (0-1.3); Red Blood Cells 3.97 10^6/uL (4.5-5.90)
[2020-07-10 04:39] LABS: Basophils % (auto) 0.4 % (0.0-2.0); Lymphocytes % (auto) 16.7 % (10.0-50.0); Mean Corpuscular Hgb Conc. 33.8 g/dL (32.0-36.0); Mean Corpuscular Volume 75.5 fL (80.0-100.0); Monocytes % (auto) 4.8 % (0.0-12.0); Neutrophils # (auto) 7.5 10 ^3/uL (1.6-8.6); Neutrophils % (auto) 75.1 % (37.0-80.0); Nucleated Red Blood Cells % 0.1 %; Red Cell Distribution Width 15.3 % (11.8-14.3); White Blood Cell 9.9 10^3/uL (4.4-10.8)
[2020-07-10 04:55] LABS: Potassium 4.5 mmol/L (3.5-5.1)
[2020-07-10 05:07] LABS: Albumin 1.6 g/dL (3.4-5.0); BUN/Creatinine Ratio 32.1; Bilirubin, Total 0.4 mg/dL (0.2-1.0); Calcium 7.3 mg/dL (8.5-10.1); Total Protein 5.9 g/dL (6.4-8.2)
[2020-07-10] MEDS: ACCU-CHEK COMFORT CURVE STRIP VI SCH ×4 (05:57→22:00)
[2020-07-10] MEDS: InsuLIN REG 1unit/0.01ml Soln (100units/ml) SC SCH ×4 (05:57→22:00)
[2020-07-10] MEDS: BUDESONIDE (INHALATION) 0.5 MG/2 ML NEB NEB SCH ×2 (06:45→18:32)
[2020-07-10] MEDS: ALBUTEROL SULF 2.5 MG/0.5ML(0.5%) NEB SOLN NEB SCH ×3 (06:45→18:32)
[2020-07-10] MEDS: cefTRIAXone 1GM/50ML D5W 50 ML IV SCH (09:06)
[2020-07-10] MEDS: FAMOTIDINE 20 MG TAB PO SCH ×2 (09:44→22:53)
[2020-07-10] MEDS: ENOXAPARIN SOD 40 MG/0.4 ML SYRINGE SC SCH ×2 (09:44→22:53)
[2020-07-10] MEDS: FLUDROCORTISONE ACETATE 0.1 MG TAB PO SCH ×2 (09:44→22:53)
[2020-07-10] MEDS: SODIUM CHLOR 0.9% PF (SALINE LOCK) 10ML VIAL/SYR IV SCH ×2 (09:45→22:52)
[2020-07-10] MEDS: INSULIN LANTUS (GLARGINE) 1 /0.01ml (100units/ml) SC SCH (10:00)
[2020-07-10] MEDS: fentaNYL Drip 2500mCg/250mlNS 250 ML IV SCH (10:40)
[2020-07-10] MEDS: NOREPINEPHRINE 8 MG/250ML KIT 250 ML IV SCH (13:00)
[2020-07-10] MEDS: MIDAZOLAM DRIP 50 mg/50mL 50 ML IV SCH (15:45)
[2020-07-10] MEDS: ATORVASTATIN 20 MG TAB GT SCH (22:52)
[2020-07-11] VITALS (95 sets, daily range): BP systolic 84–156; BP diastolic 52–105
[2020-07-11 05:07] LABS: Basophils # (auto) 0.1 10 ^3/uL (0-0.2); Basophils % (auto) 0.8 % (0.0-2.0); Eosinophils # (auto) 0.4 10 ^3/uL (0-0.8); Eosinophils % (auto) 4.1 % (0.0-7.0); Hematocrit 28.3 % (41.0-53.0); Hemoglobin 9.5 g/dL (13.5-17.5); Lymphocytes # (auto) 1.6 10 ^3/uL (0.4-5.4); Lymphocytes % (auto) 17.7 % (10.0-50.0); Mean Corpuscular Hemoglobin 25.5 pg (28.0-32.0); Mean Corpuscular Hgb Conc. 33.5 g/dL (32.0-36.0); Mean Corpuscular Volume 76.3 fL (80.0-100.0); Monocytes # (auto) 0.4 10 ^3/uL (0-1.3); Neutrophils # (auto) 6.5 10 ^3/uL (1.6-8.6); Neutrophils % (auto) 72.4 % (37.0-80.0); Nucleated Red Blood Cells % 0.2 %; Red Blood Cells 3.71 10^6/uL (4.5-5.90); Red Cell Distribution Width 15.2 % (11.8-14.3); White Blood Cell 8.9 10^3/uL (4.4-10.8)
[2020-07-11 05:17] LABS: Albumin 1.6 g/dL (3.4-5.0); Calcium 7.5 mg/dL (8.5-10.1); Potassium 3.8 mmol/L (3.5-5.1)
[2020-07-11 05:21] LABS: Bilirubin, Total 0.4 mg/dL (0.2-1.0); Total Protein 5.6 g/dL (6.4-8.2)
[2020-07-11] MEDS: ACCU-CHEK COMFORT CURVE STRIP VI SCH ×4 (05:39→22:00)
[2020-07-11] MEDS: InsuLIN REG 1unit/0.01ml Soln (100units/ml) SC SCH ×4 (05:39→22:00)
[2020-07-11] MEDS: BUDESONIDE (INHALATION) 0.5 MG/2 ML NEB NEB SCH ×2 (07:10→22:12)
[2020-07-11] MEDS: ALBUTEROL SULF 2.5 MG/0.5ML(0.5%) NEB SOLN NEB SCH ×3 (07:10→22:12)
[2020-07-11] MEDS: cefTRIAXone 1GM/50ML D5W 50 ML IV SCH (09:21)
[2020-07-11] MEDS: FLUDROCORTISONE ACETATE 0.1 MG TAB PO SCH ×2 (10:00→22:00)
[2020-07-11] MEDS: INSULIN LANTUS (GLARGINE) 1 /0.01ml (100units/ml) SC SCH (10:00)
[2020-07-11] MEDS: FAMOTIDINE 20 MG TAB PO SCH ×2 (10:00→22:00)
[2020-07-11] MEDS: ENOXAPARIN SOD 40 MG/0.4 ML SYRINGE SC SCH ×2 (10:00→22:00)
[2020-07-11] MEDS: SODIUM CHLOR 0.9% PF (SALINE LOCK) 10ML VIAL/SYR IV SCH ×2 (10:00→22:00)
[2020-07-11] MEDS: NOREPINEPHRINE 8 MG/250ML KIT 250 ML IV SCH (13:00)
[2020-07-11] MEDS: MIDAZOLAM DRIP 50 mg/50mL 50 ML IV SCH (15:45)
[2020-07-11] MEDS: fentaNYL Drip 2500mCg/250mlNS 250 ML IV SCH (20:15)
[2020-07-11] MEDS: ATORVASTATIN 20 MG TAB GT SCH (22:00)
[2020-07-12] VITALS (101 sets, daily range): BP systolic 80–132; BP diastolic 43–71
[2020-07-12 05:04] LABS: Basophils # (auto) 0 10 ^3/uL (0-0.2); Basophils % (auto) 0.6 % (0.0-2.0); Eosinophils # (auto) 0.4 10 ^3/uL (0-0.8)
[2020-07-12 05:07] LABS: Hematocrit 26.9 % (41.0-53.0); Lymphocytes # (auto) 1.4 10 ^3/uL (0.4-5.4); Lymphocytes % (auto) 19.6 % (10.0-50.0); Mean Corpuscular Hemoglobin 25.4 pg (28.0-32.0); Mean Corpuscular Hgb Conc. 33.4 g/dL (32.0-36.0); Monocytes # (auto) 0.5 10 ^3/uL (0-1.3); Monocytes % (auto) 7.6 % (0.0-12.0); Neutrophils # (auto) 4.7 10 ^3/uL (1.6-8.6); Neutrophils % (auto) 67.2 % (37.0-80.0); Nucleated Red Blood Cells % 0.3 %; Red Blood Cells 3.54 10^6/uL (4.5-5.90); Red Cell Distribution Width 15.2 % (11.8-14.3)
[2020-07-12 05:32] LABS: Potassium 3.6 mmol/L (3.5-5.1)
[2020-07-12 05:36] LABS: Albumin 1.5 g/dL (3.4-5.0); BUN/Creatinine Ratio 41.2; Calcium 7.3 mg/dL (8.5-10.1)
[2020-07-12 05:39] LABS: Bilirubin, Total 0.2 mg/dL (0.2-1.0); Total Protein 5.2 g/dL (6.4-8.2)
[2020-07-12] MEDS: FLUDROCORTISONE ACETATE 0.1 MG TAB PO SCH ×3 (06:00→22:00)
[2020-07-12] MEDS: ALBUTEROL SULF 2.5 MG/0.5ML(0.5%) NEB SOLN NEB SCH ×3 (06:32→22:50)
[2020-07-12] MEDS: BUDESONIDE (INHALATION) 0.5 MG/2 ML NEB NEB SCH ×2 (06:32→22:50)
[2020-07-12] MEDS: InsuLIN REG 1unit/0.01ml Soln (100units/ml) SC SCH ×4 (06:40→22:00)
[2020-07-12] MEDS: ACCU-CHEK COMFORT CURVE STRIP VI SCH ×4 (06:41→22:00)
[2020-07-12] MEDS: MIDAZOLAM DRIP 50 mg/50mL 50 ML IV SCH (08:00)
[2020-07-12] MEDS: cefTRIAXone 1GM/50ML D5W 50 ML IV SCH (09:00)
[2020-07-12] MEDS: SODIUM CHLOR 0.9% PF (SALINE LOCK) 10ML VIAL/SYR IV SCH ×2 (10:00→22:00)
[2020-07-12] MEDS: INSULIN LANTUS (GLARGINE) 1 /0.01ml (100units/ml) SC SCH (10:00)
[2020-07-12] MEDS: ENOXAPARIN SOD 40 MG/0.4 ML SYRINGE SC SCH ×2 (10:00→22:00)
[2020-07-12] MEDS: FAMOTIDINE 20 MG TAB PO SCH ×2 (10:00→22:00)
[2020-07-12] MEDS: NOREPINEPHRINE 8 MG/250ML KIT 250 ML IV SCH (13:00)
[2020-07-12] MEDS: fentaNYL Drip 2500mCg/250mlNS 250 ML IV SCH (20:15)
[2020-07-12] MEDS: ATORVASTATIN 20 MG TAB GT SCH (22:00)
[2020-07-13] VITALS (89 sets, daily range): BP systolic 94–140; BP diastolic 53–74
[2020-07-13 04:19] LABS: Basophils # (auto) 0.1 10 ^3/uL (0-0.2); Basophils % (auto) 0.7 % (0.0-2.0); Eosinophils # (auto) 0.4 10 ^3/uL (0-0.8); Hematocrit 27.4 % (41.0-53.0); Hemoglobin 9.2 g/dL (13.5-17.5); Lymphocytes # (auto) 1.6 10 ^3/uL (0.4-5.4); Mean Corpuscular Hgb Conc. 33.6 g/dL (32.0-36.0); Nucleated Red Blood Cells % 0.1 %; White Blood Cell 8.4 10^3/uL (4.4-10.8)
[2020-07-13 04:21] LABS: Eosinophils % (auto) 4.9 % (0.0-7.0); Lymphocytes % (auto) 19.6 % (10.0-50.0); Mean Corpuscular Hemoglobin 25.5 pg (28.0-32.0); Monocytes # (auto) 0.8 10 ^3/uL (0-1.3); Monocytes % (auto) 9.2 % (0.0-12.0); Neutrophils # (auto) 5.5 10 ^3/uL (1.6-8.6); Neutrophils % (auto) 65.6 % (37.0-80.0)
[2020-07-13 05:01] LABS: Calcium 7.3 mg/dL (8.5-10.1); Potassium 3.8 mmol/L (3.5-5.1)
[2020-07-13 05:06] LABS: Albumin 1.5 g/dL (3.4-5.0); BUN/Creatinine Ratio 30.4; Bilirubin, Total 0.2 mg/dL (0.2-1.0); Total Protein 5.6 g/dL (6.4-8.2)
[2020-07-13] MEDS: FLUDROCORTISONE ACETATE 0.1 MG TAB PO SCH ×3 (06:00→21:55)
[2020-07-13] MEDS: BUDESONIDE (INHALATION) 0.5 MG/2 ML NEB NEB SCH ×2 (06:00→19:07)
[2020-07-13] MEDS: ALBUTEROL SULF 2.5 MG/0.5ML(0.5%) NEB SOLN NEB SCH ×3 (06:00→19:07)
[2020-07-13] MEDS: InsuLIN REG 1unit/0.01ml Soln (100units/ml) SC SCH ×4 (06:11→21:59)
[2020-07-13] MEDS: ACCU-CHEK COMFORT CURVE STRIP VI SCH ×4 (06:12→21:59)
[2020-07-13] MEDS: cefTRIAXone 1GM/50ML D5W 50 ML IV SCH (08:36)
[2020-07-13] MEDS: MIDAZOLAM DRIP 50 mg/50mL 50 ML IV SCH (08:38)
[2020-07-13] MEDS: FAMOTIDINE 20 MG TAB PO SCH ×2 (09:36→21:55)
[2020-07-13] MEDS: SODIUM CHLOR 0.9% PF (SALINE LOCK) 10ML VIAL/SYR IV SCH ×2 (09:36→21:55)
[2020-07-13] MEDS: INSULIN LANTUS (GLARGINE) 1 /0.01ml (100units/ml) SC SCH (09:37)
[2020-07-13] MEDS: ENOXAPARIN SOD 40 MG/0.4 ML SYRINGE SC SCH ×2 (09:37→21:56)
[2020-07-13] MEDS: fentaNYL Drip 2500mCg/250mlNS 250 ML IV SCH (11:12)
[2020-07-13] MEDS: NOREPINEPHRINE 8 MG/250ML KIT 250 ML IV SCH (13:00)
[2020-07-13] MEDS: Glucerna 1.2 Cal 1Liter BOTTLE GT SCH (17:54)
[2020-07-13] MEDS: ATORVASTATIN 20 MG TAB GT SCH (21:55)
[2020-07-14] VITALS (97 sets, daily range): BP systolic 89–123; BP diastolic 49–74
[2020-07-14] MEDS: ACETAMINOPHEN 650 mg PER 20.3 mL UD PO PRN (02:31)
[2020-07-14] MEDS: FLUDROCORTISONE ACETATE 0.1 MG TAB PO SCH ×3 (06:00→21:15)
[2020-07-14] MEDS: ALBUTEROL SULF 2.5 MG/0.5ML(0.5%) NEB SOLN NEB SCH ×3 (06:00→18:29)
[2020-07-14] MEDS: InsuLIN REG 1unit/0.01ml Soln (100units/ml) SC SCH ×4 (06:19→22:26)
[2020-07-14] MEDS: ACCU-CHEK COMFORT CURVE STRIP VI SCH ×4 (06:19→21:15)
[2020-07-14] MEDS: cefTRIAXone 1GM/50ML D5W 50 ML IV SCH (09:16)
[2020-07-14] MEDS: SODIUM CHLOR 0.9% PF (SALINE LOCK) 10ML VIAL/SYR IV SCH ×2 (09:21→21:14)
[2020-07-14] MEDS: BUDESONIDE (INHALATION) 0.5 MG/2 ML NEB NEB SCH ×2 (09:29→18:29)
[2020-07-14 09:52] LABS: Hemoglobin 8.4 g/dL (13.5-17.5); Mean Corpuscular Volume 76.4 fL (80.0-100.0)
[2020-07-14 09:54] LABS: Hematocrit 25.5 % (41.0-53.0); Mean Corpuscular Hemoglobin 25.2 pg (28.0-32.0); Mean Corpuscular Hgb Conc. 32.9 g/dL (32.0-36.0); Red Blood Cells 3.34 10^6/uL (4.5-5.90); Red Cell Distribution Width 15.5 % (11.8-14.3); White Blood Cell 8.6 10^3/uL (4.4-10.8)
[2020-07-14 09:56] LABS: Basophils % (manual) 0 (0.0-2.0); Blast Cells 0; Promyelocytes % 0; Reactive Lymphocytes 0
[2020-07-14] MEDS: FAMOTIDINE 20 MG TAB PO SCH ×2 (10:00→21:15)
[2020-07-14] MEDS: INSULIN LANTUS (GLARGINE) 1 /0.01ml (100units/ml) SC SCH (10:00)
[2020-07-14] MEDS: ENOXAPARIN SOD 40 MG/0.4 ML SYRINGE SC SCH ×2 (10:00→21:15)
[2020-07-14 10:11] LABS: Calcium 7.5 mg/dL (8.5-10.1); Potassium 3.7 mmol/L (3.5-5.1)
[2020-07-14 10:14] LABS: BUN/Creatinine Ratio 42.9
[2020-07-14 13:22] LABS: Band Neutrophils % (manual) 3; Lymphocytes % (manual) 14 (10.0-50.0); Metamyelocytes % 3; Monocytes % (manual) 10 (0-12); Myelocytes % 2
[2020-07-14 13:24] LABS: Eosinophils % (manual) 8 (0-7)
[2020-07-14] MEDS: NOREPINEPHRINE 8 MG/250ML KIT 250 ML IV SCH (19:31)
[2020-07-14] MEDS: MIDAZOLAM DRIP 50 mg/50mL 50 ML IV SCH (19:31)
[2020-07-14] MEDS: fentaNYL Drip 2500mCg/250mlNS 250 ML IV SCH (20:15)
[2020-07-14] MEDS: ATORVASTATIN 20 MG TAB GT SCH (21:14)
[2020-07-15] VITALS (90 sets, daily range): BP systolic 79–156; BP diastolic 46–91
[2020-07-15 04:37] LABS: Hemoglobin 8.2 g/dL (13.5-17.5)
[2020-07-15 04:40] LABS: Hematocrit 24.4 % (41.0-53.0); Mean Corpuscular Hemoglobin 25.6 pg (28.0-32.0); Mean Corpuscular Hgb Conc. 33.5 g/dL (32.0-36.0); Mean Corpuscular Volume 76.3 fL (80.0-100.0); Red Blood Cells 3.19 10^6/uL (4.5-5.90); Red Cell Distribution Width 15.4 % (11.8-14.3); White Blood Cell 9.5 10^3/uL (4.4-10.8)
[2020-07-15 04:47] LABS: Albumin 1.4 g/dL (3.4-5.0); Calcium 7.3 mg/dL (8.5-10.1); Potassium 3.9 mmol/L (3.5-5.1)
[2020-07-15 04:51] LABS: Bilirubin, Total 0.2 mg/dL (0.2-1.0); Total Protein 5.3 g/dL (6.4-8.2)
[2020-07-15 04:54] LABS: Band Neutrophils % (manual) 0; Basophils % (manual) 0 (0.0-2.0); Blast Cells 0; Metamyelocytes % 0; Myelocytes % 0; Promyelocytes % 0; Reactive Lymphocytes 0
[2020-07-15 05:48] LABS: Eosinophils % (manual) 4 (0-7); Lymphocytes % (manual) 18 (10.0-50.0); Monocytes % (manual) 7 (0-12)
[2020-07-15] MEDS: ACCU-CHEK COMFORT CURVE STRIP VI SCH ×4 (06:17→21:08)
[2020-07-15] MEDS: FLUDROCORTISONE ACETATE 0.1 MG TAB PO SCH ×3 (06:17→21:08)
[2020-07-15] MEDS: InsuLIN REG 1unit/0.01ml Soln (100units/ml) SC SCH ×4 (06:18→21:08)
[2020-07-15] MEDS: BUDESONIDE (INHALATION) 0.5 MG/2 ML NEB NEB SCH ×2 (07:14→18:34)
[2020-07-15] MEDS: ALBUTEROL SULF 2.5 MG/0.5ML(0.5%) NEB SOLN NEB SCH ×3 (07:14→18:34)
[2020-07-15] MEDS: cefTRIAXone 1GM/50ML D5W 50 ML IV SCH (09:00)
[2020-07-15] MEDS: ENOXAPARIN SOD 40 MG/0.4 ML SYRINGE SC SCH ×2 (10:00→21:08)
[2020-07-15] MEDS: FAMOTIDINE 20 MG TAB PO SCH ×2 (10:00→21:08)
[2020-07-15] MEDS: INSULIN LANTUS (GLARGINE) 1 /0.01ml (100units/ml) SC SCH (10:00)
[2020-07-15] MEDS: SODIUM CHLOR 0.9% PF (SALINE LOCK) 10ML VIAL/SYR IV SCH ×2 (10:00→21:07)
[2020-07-15] MEDS: NOREPINEPHRINE 8 MG/250ML KIT 250 ML IV SCH (13:00)
[2020-07-15] MEDS: MIDAZOLAM DRIP 50 mg/50mL 50 ML IV SCH (15:45)
[2020-07-15] MEDS: fentaNYL Drip 2500mCg/250mlNS 250 ML IV SCH (20:15)
[2020-07-15] MEDS: ATORVASTATIN 20 MG TAB GT SCH (21:07)
[2020-07-16] VITALS (92 sets, daily range): BP systolic 91–166; BP diastolic 43–73
[2020-07-16] MEDS: ACCU-CHEK COMFORT CURVE STRIP VI SCH ×4 (05:54→21:52)
[2020-07-16] MEDS: InsuLIN REG 1unit/0.01ml Soln (100units/ml) SC SCH ×4 (05:54→21:52)
[2020-07-16] MEDS: FLUDROCORTISONE ACETATE 0.1 MG TAB PO SCH ×3 (05:54→22:00)
[2020-07-16] MEDS: ALBUTEROL SULF 2.5 MG/0.5ML(0.5%) NEB SOLN NEB SCH ×3 (06:00→18:40)
[2020-07-16] MEDS: cefTRIAXone 1GM/50ML D5W 50 ML IV SCH (09:00)
[2020-07-16] MEDS: BUDESONIDE (INHALATION) 0.5 MG/2 ML NEB NEB SCH ×2 (10:00→18:40)
[2020-07-16] MEDS: ENOXAPARIN SOD 40 MG/0.4 ML SYRINGE SC SCH ×2 (10:24→22:00)
[2020-07-16] MEDS: FAMOTIDINE 20 MG TAB PO SCH ×2 (10:24→22:00)
[2020-07-16] MEDS: SODIUM CHLOR 0.9% PF (SALINE LOCK) 10ML VIAL/SYR IV SCH ×2 (10:24→22:00)
[2020-07-16] MEDS: INSULIN LANTUS (GLARGINE) 1 /0.01ml (100units/ml) SC SCH (11:00)
[2020-07-16] MEDS: NOREPINEPHRINE 8 MG/250ML KIT 250 ML IV SCH (13:00)
[2020-07-16 13:28] LABS: INR 1.16 (0.9-1.15); Partial Thromboplastin Time 31.9 sec (23.0-31.2)
[2020-07-16] MEDS: MIDAZOLAM DRIP 50 mg/50mL 50 ML IV SCH (15:45)
[2020-07-16] MEDS ORDERED: LIDOCAINE 1% (LOCAL ANESTH.) PF 5ml SDV ID ONE (16:45)
[2020-07-16] MEDS: fentaNYL Drip 2500mCg/250mlNS 250 ML IV SCH (20:15)
[2020-07-16] MEDS: ATORVASTATIN 20 MG TAB GT SCH (22:00)
[2020-07-17] VITALS (92 sets, daily range): BP systolic 120–173; BP diastolic 44–89
[2020-07-17] MEDS: FLUDROCORTISONE ACETATE 0.1 MG TAB PO SCH ×3 (06:00→21:58)
[2020-07-17] MEDS: BUDESONIDE (INHALATION) 0.5 MG/2 ML NEB NEB SCH ×2 (06:42→18:47)
[2020-07-17] MEDS: ALBUTEROL SULF 2.5 MG/0.5ML(0.5%) NEB SOLN NEB SCH ×3 (06:42→18:47)
[2020-07-17] MEDS: ACCU-CHEK COMFORT CURVE STRIP VI SCH ×4 (07:00→21:59)
[2020-07-17] MEDS: InsuLIN REG 1unit/0.01ml Soln (100units/ml) SC SCH ×4 (07:00→22:00)
[2020-07-17] MEDS: FAMOTIDINE 20 MG TAB PO SCH ×2 (09:52→21:58)
[2020-07-17] MEDS: cefTRIAXone 1GM/50ML D5W 50 ML IV SCH (09:52)
[2020-07-17] MEDS: SODIUM CHLOR 0.9% PF (SALINE LOCK) 10ML VIAL/SYR IV SCH ×2 (09:52→21:58)
[2020-07-17] MEDS: ENOXAPARIN SOD 40 MG/0.4 ML SYRINGE SC SCH ×2 (09:53→21:59)
[2020-07-17] MEDS: INSULIN LANTUS (GLARGINE) 1 /0.01ml (100units/ml) SC SCH (10:00)
[2020-07-17] MEDS: Glucerna 1.2 Cal 1Liter BOTTLE GT SCH ×2 (18:00→21:58)
[2020-07-17] MEDS: ATORVASTATIN 20 MG TAB GT SCH (21:58)
[2020-07-18] VITALS (48 sets, daily range): BP systolic 125–174; BP diastolic 53–80
[2020-07-18 03:07] LABS: Basophils # (auto) 0 10 ^3/uL (0-0.2); Basophils % (auto) 0.4 % (0.0-2.0); Eosinophils # (auto) 0 10 ^3/uL (0-0.8); Hematocrit 25.2 % (41.0-53.0); Hemoglobin 8.4 g/dL (13.5-17.5); Lymphocytes # (auto) 1.7 10 ^3/uL (0.4-5.4); Lymphocytes % (auto) 14.6 % (10.0-50.0); Mean Corpuscular Hemoglobin 25.1 pg (28.0-32.0); Mean Corpuscular Hgb Conc. 33.2 g/dL (32.0-36.0); Mean Corpuscular Volume 75.7 fL (80.0-100.0); Monocytes # (auto) 0.9 10 ^3/uL (0-1.3); Monocytes % (auto) 7.7 % (0.0-12.0); Neutrophils # (auto) 9.2 10 ^3/uL (1.6-8.6); Neutrophils % (auto) 77.3 % (37.0-80.0); Nucleated Red Blood Cells % 0.1 %; Red Blood Cells 3.34 10^6/uL (4.5-5.90); Red Cell Distribution Width 15.3 % (11.8-14.3); White Blood Cell 11.9 10^3/uL (4.4-10.8)
[2020-07-18 03:34] LABS: Albumin 1.8 g/dL (3.4-5.0); Bilirubin, Total 0.3 mg/dL (0.2-1.0); Calcium 7.3 mg/dL (8.5-10.1); Total Protein 5.6 g/dL (6.4-8.2)
[2020-07-18 03:48] LABS: Potassium 2.3 mmol/L (3.5-5.1)
[2020-07-18] MEDS: POTASSIUM CHL 20MEQ/100ML 100 ML IV SCH ×5 (04:00→18:08)
[2020-07-18] MEDS ORDERED: hydrALAZINE HCL 20 MG/ML VL IV PRN (04:00)
[2020-07-18] MEDS ORDERED: POTASSIUM CHL 20 Meq TABLET PO ONE ×2 (04:00→04:18)
[2020-07-18] MEDS ORDERED: POTASSIUM CHL 20MEQ/100ML 300 ML IV ONE (04:03)
[2020-07-18] MEDS ORDERED: hydrALAZINE HCL 20 MG/ML VL ONE (04:11)
[2020-07-18] MEDS: FLUDROCORTISONE ACETATE 0.1 MG TAB PO SCH ×3 (06:00→22:46)
[2020-07-18] MEDS: Glucerna 1.2 Cal 1Liter BOTTLE GT SCH ×4 (06:00→22:45)
[2020-07-18] MEDS: ACCU-CHEK COMFORT CURVE STRIP VI SCH ×4 (06:45→22:47)
[2020-07-18] MEDS: InsuLIN REG 1unit/0.01ml Soln (100units/ml) SC SCH ×4 (06:45→22:00)
[2020-07-18] MEDS: BUDESONIDE (INHALATION) 0.5 MG/2 ML NEB NEB SCH (07:20)
[2020-07-18] MEDS: ALBUTEROL SULF 2.5 MG/0.5ML(0.5%) NEB SOLN NEB SCH ×3 (07:20→22:22)
[2020-07-18] MEDS: FAMOTIDINE 20 MG TAB PO SCH ×2 (10:13→22:46)
[2020-07-18] MEDS: INSULIN LANTUS (GLARGINE) 1 /0.01ml (100units/ml) SC SCH (10:13)
[2020-07-18] MEDS: SODIUM CHLOR 0.9% PF (SALINE LOCK) 10ML VIAL/SYR IV SCH ×2 (10:13→22:46)
[2020-07-18] MEDS: ENOXAPARIN SOD 40 MG/0.4 ML SYRINGE SC SCH ×2 (10:14→22:47)
[2020-07-18] MEDS: ACETAMINOPHEN 650 mg PER 20.3 mL UD PO PRN (12:56)
[2020-07-18 15:57] LABS: Magnesium 2.1 mg/dL (1.6-2.6)
[2020-07-18 16:11] LABS: Potassium 2.9 mmol/L (3.5-5.1)
[2020-07-18] MEDS: POTASSIUM EFFERVESENT TAB 25 MEQ GT SCH (17:06)
[2020-07-18] MEDS: ATORVASTATIN 20 MG TAB GT SCH (22:45)
[2020-07-19] MEDS: POTASSIUM EFFERVESENT TAB 25 MEQ GT SCH (00:30)
[2020-07-19] MEDS: ALBUTEROL SULF 2.5 MG/0.5ML(0.5%) NEB SOLN NEB SCH (06:00)
[2020-07-19] MEDS: Glucerna 1.2 Cal 1Liter BOTTLE GT SCH ×4 (06:21→22:32)
[2020-07-19 06:32] LABS: BUN/Creatinine Ratio 41.2; Calcium 7.3 mg/dL (8.5-10.1); Potassium 3.5 mmol/L (3.5-5.1)
[2020-07-19] MEDS: ACCU-CHEK COMFORT CURVE STRIP VI SCH ×4 (06:46→22:33)
[2020-07-19] MEDS: InsuLIN REG 1unit/0.01ml Soln (100units/ml) SC SCH ×4 (06:47→22:00)
[2020-07-19 08:00] VITALS: BP 125/58
[2020-07-19] MEDS: FAMOTIDINE 20 MG TAB PO SCH ×2 (09:32→22:32)
[2020-07-19] MEDS: SODIUM CHLOR 0.9% PF (SALINE LOCK) 10ML VIAL/SYR IV SCH ×2 (09:32→22:32)
[2020-07-19] MEDS: FLUDROCORTISONE ACETATE 0.1 MG TAB PO SCH ×2 (09:32→22:32)
[2020-07-19] MEDS: ENOXAPARIN SOD 40 MG/0.4 ML SYRINGE SC SCH (09:33)
[2020-07-19] MEDS: INSULIN LANTUS (GLARGINE) 1 /0.01ml (100units/ml) SC SCH (10:00)
[2020-07-19] MEDS ORDERED: POTASSIUM EFFERVESENT TAB 25 MEQ GT ONE (11:30)
[2020-07-19 16:00] VITALS: BP 139/81
[2020-07-19] MEDS ORDERED: ACETYLCYSTEINE 10 %(100MG/ML) SOL 4ML NEB SCH (18:00)
[2020-07-19] MEDS ORDERED: ACETYLCYSTEINE 10 %(100MG/ML) SOL 4ML ONE (22:02)
[2020-07-19] MEDS: ACETYLCYSTEINE 10 %(100MG/ML) SOL 4ML NEB SCH (22:22)
[2020-07-19] MEDS: ATORVASTATIN 20 MG TAB GT SCH (22:32)
[2020-07-20] VITALS: BP 122/67
[2020-07-20] MEDS: ACETYLCYSTEINE 10 %(100MG/ML) SOL 4ML NEB SCH ×3 (06:00→22:57)
[2020-07-20] MEDS: ALBUTEROL SULF 2.5 MG/0.5ML(0.5%) NEB SOLN NEB SCH ×3 (06:00→22:57)
[2020-07-20] MEDS: Glucerna 1.2 Cal 1Liter BOTTLE GT SCH ×4 (06:29→21:24)
[2020-07-20] MEDS: ACCU-CHEK COMFORT CURVE STRIP VI SCH ×4 (06:54→22:15)
[2020-07-20] MEDS: InsuLIN REG 1unit/0.01ml Soln (100units/ml) SC SCH ×4 (06:55→22:00)
[2020-07-20 08:00] VITALS: BP_SYST 131; BP_SYST 141; BP_DIAS 73; BP_DIAS 79
[2020-07-20] MEDS: FAMOTIDINE 20 MG TAB PO SCH ×2 (09:28→21:24)
[2020-07-20] MEDS: SODIUM CHLOR 0.9% PF (SALINE LOCK) 10ML VIAL/SYR IV SCH ×2 (09:28→21:25)
[2020-07-20] MEDS: FLUDROCORTISONE ACETATE 0.1 MG TAB PO SCH ×2 (09:28→21:23)
[2020-07-20] MEDS: ENOXAPARIN SOD 40 MG/0.4 ML SYRINGE SC SCH (09:29)
[2020-07-20] MEDS: INSULIN LANTUS (GLARGINE) 1 /0.01ml (100units/ml) SC SCH (11:18)
[2020-07-20] MEDS: ATORVASTATIN 20 MG TAB GT SCH (21:23)
[2020-07-20 23:53] VITALS: BP 126/75
[2020-07-21] VITALS: BP 120/68
[2020-07-21] MEDS: Glucerna 1.2 Cal 1Liter BOTTLE GT SCH ×4 (06:17→22:27)
[2020-07-21] MEDS: ACCU-CHEK COMFORT CURVE STRIP VI SCH ×4 (06:18→21:35)
[2020-07-21] MEDS: InsuLIN REG 1unit/0.01ml Soln (100units/ml) SC SCH ×4 (06:18→21:34)
[2020-07-21] MEDS: ACETYLCYSTEINE 10 %(100MG/ML) SOL 4ML NEB SCH ×3 (06:25→22:26)
[2020-07-21] MEDS: ALBUTEROL SULF 2.5 MG/0.5ML(0.5%) NEB SOLN NEB SCH ×3 (06:25→22:26)
[2020-07-21 08:00] VITALS: BP 147/82
[2020-07-21] MEDS: INSULIN LANTUS (GLARGINE) 1 /0.01ml (100units/ml) SC SCH (09:57)
[2020-07-21] MEDS: SODIUM CHLOR 0.9% PF (SALINE LOCK) 10ML VIAL/SYR IV SCH ×2 (10:00→22:28)
[2020-07-21] MEDS: FAMOTIDINE 20 MG TAB PO SCH ×2 (10:00→22:28)
[2020-07-21] MEDS: FLUDROCORTISONE ACETATE 0.1 MG TAB PO SCH ×2 (10:02→22:28)
[2020-07-21] MEDS: ENOXAPARIN SOD 40 MG/0.4 ML SYRINGE SC SCH (10:02)
[2020-07-21 16:10] VITALS: BP 136/82
[2020-07-21] MEDS: ATORVASTATIN 20 MG TAB GT SCH (22:28)
[2020-07-22] VITALS: BP 120/68
[2020-07-22] MEDS: Glucerna 1.2 Cal 1Liter BOTTLE GT SCH ×4 (05:40→21:12)
[2020-07-22] MEDS: InsuLIN REG 1unit/0.01ml Soln (100units/ml) SC SCH ×4 (06:28→21:11)
[2020-07-22] MEDS: ACCU-CHEK COMFORT CURVE STRIP VI SCH ×4 (06:29→21:11)
[2020-07-22] MEDS: ACETYLCYSTEINE 10 %(100MG/ML) SOL 4ML NEB SCH ×3 (07:45→19:40)
[2020-07-22] MEDS: ALBUTEROL SULF 2.5 MG/0.5ML(0.5%) NEB SOLN NEB SCH ×3 (07:45→19:40)
[2020-07-22 08:00] VITALS: BP 117/58
[2020-07-22] MEDS: ENOXAPARIN SOD 40 MG/0.4 ML SYRINGE SC SCH (09:34)
[2020-07-22] MEDS: FLUDROCORTISONE ACETATE 0.1 MG TAB PO SCH ×2 (09:34→21:12)
[2020-07-22] MEDS: FAMOTIDINE 20 MG TAB PO SCH ×2 (09:34→21:12)
[2020-07-22] MEDS: SODIUM CHLOR 0.9% PF (SALINE LOCK) 10ML VIAL/SYR IV SCH ×2 (09:34→21:12)
[2020-07-22] MEDS: INSULIN LANTUS (GLARGINE) 1 /0.01ml (100units/ml) SC SCH (09:51)
[2020-07-22 12:11] LABS: Hematocrit 27.6 % (41.0-53.0); Hemoglobin 9.1 g/dL (13.5-17.5); Mean Corpuscular Hemoglobin 25.3 pg (28.0-32.0); Mean Corpuscular Hgb Conc. 32.9 g/dL (32.0-36.0); Mean Corpuscular Volume 76.7 fL (80.0-100.0); White Blood Cell 12.7 10^3/uL (4.4-10.8)
[2020-07-22 12:12] LABS: Basophils % (manual) 0 (0.0-2.0); Blast Cells 0; Myelocytes % 0; Promyelocytes % 0; Reactive Lymphocytes 0
[2020-07-22 12:15] LABS: BUN/Creatinine Ratio 33.3; Calcium 7.4 mg/dL (8.5-10.1); Magnesium 2.1 mg/dL (1.6-2.6)
[2020-07-22 12:21] LABS: Potassium 2.3 mmol/L (3.5-5.1)
[2020-07-22 12:47] LABS: Band Neutrophils % (manual) 8; Eosinophils % (manual) 1 (0-7); Lymphocytes % (manual) 10 (10.0-50.0); Metamyelocytes % 1; Monocytes % (manual) 7 (0-12)
[2020-07-22] MEDS ORDERED: POTASSIUM CHLORIDE 60 MEQ, LIDOCAINE 1% (LOCAL ANESTH.) 6 ML in SODIUM CHL 0.9% 500 ML IV ONE (13:45)
[2020-07-22 14:00] VITALS: BP 105/49
[2020-07-22] MEDS: POTASSIUM EFFERVESENT TAB 25 MEQ GT SCH ×2 (14:30→18:30)
[2020-07-22 16:00] VITALS: BP 105/49
[2020-07-22] MEDS: ACETAMINOPHEN 650 mg PER 20.3 mL UD PO PRN (20:00)
[2020-07-22] MEDS: ATORVASTATIN 20 MG TAB GT SCH (21:11)
[2020-07-23] VITALS: BP 123/72
[2020-07-23] MEDS: Glucerna 1.2 Cal 1Liter BOTTLE GT SCH ×4 (05:00→22:44)
[2020-07-23] MEDS: ACCU-CHEK COMFORT CURVE STRIP VI SCH ×4 (06:10→22:44)
[2020-07-23] MEDS: InsuLIN REG 1unit/0.01ml Soln (100units/ml) SC SCH ×4 (06:10→22:00)
[2020-07-23] MEDS: ACETYLCYSTEINE 10 %(100MG/ML) SOL 4ML NEB SCH ×3 (07:40→19:49)
[2020-07-23] MEDS: ALBUTEROL SULF 2.5 MG/0.5ML(0.5%) NEB SOLN NEB SCH ×3 (07:40→19:49)
[2020-07-23 08:11] VITALS: BP 123/72
[2020-07-23] MEDS: SODIUM CHLOR 0.9% PF (SALINE LOCK) 10ML VIAL/SYR IV SCH ×2 (09:12→22:44)
[2020-07-23] MEDS: FAMOTIDINE 20 MG TAB PO SCH ×2 (09:12→22:43)
[2020-07-23] MEDS: FLUDROCORTISONE ACETATE 0.1 MG TAB PO SCH ×2 (09:12→22:43)
[2020-07-23] MEDS: POTASSIUM EFFERVESENT TAB 25 MEQ GT SCH (09:12)
[2020-07-23] MEDS: ENOXAPARIN SOD 40 MG/0.4 ML SYRINGE SC SCH (09:12)
[2020-07-23] MEDS: INSULIN LANTUS (GLARGINE) 1 /0.01ml (100units/ml) SC SCH (09:54)
[2020-07-23 16:00] VITALS: BP 159/82
[2020-07-23] MEDS: ATORVASTATIN 20 MG TAB GT SCH (22:43)
[2020-07-23] MEDS: ACETAMINOPHEN 650 mg PER 20.3 mL UD PO PRN (22:46)
[2020-07-24] VITALS: BP 132/69
[2020-07-24] MEDS: ACETAMINOPHEN 650 mg PER 20.3 mL UD PO PRN (02:21)
[2020-07-24] MEDS: Glucerna 1.2 Cal 1Liter BOTTLE GT SCH ×3 (06:00→21:49)
[2020-07-24] MEDS: ALBUTEROL SULF 2.5 MG/0.5ML(0.5%) NEB SOLN NEB SCH ×3 (06:00→19:33)
[2020-07-24] MEDS: ACETYLCYSTEINE 10 %(100MG/ML) SOL 4ML NEB SCH ×3 (06:00→19:33)
[2020-07-24] MEDS: InsuLIN REG 1unit/0.01ml Soln (100units/ml) SC SCH ×4 (06:45→21:50)
[2020-07-24] MEDS: ACCU-CHEK COMFORT CURVE STRIP VI SCH ×4 (06:46→21:50)
[2020-07-24 08:00] VITALS: BP 157/84
[2020-07-24] MEDS: POTASSIUM EFFERVESENT TAB 25 MEQ GT SCH (08:31)
[2020-07-24] MEDS: FAMOTIDINE 20 MG TAB PO SCH ×2 (08:32→21:50)
[2020-07-24] MEDS: ENOXAPARIN SOD 40 MG/0.4 ML SYRINGE SC SCH (08:32)
[2020-07-24] MEDS: FLUDROCORTISONE ACETATE 0.1 MG TAB PO SCH ×2 (08:32→21:49)
[2020-07-24] MEDS: SODIUM CHLOR 0.9% PF (SALINE LOCK) 10ML VIAL/SYR IV SCH ×2 (10:00→21:49)
[2020-07-24] MEDS: INSULIN LANTUS (GLARGINE) 1 /0.01ml (100units/ml) SC SCH (10:56)
[2020-07-24 16:00] VITALS: BP 143/80
[2020-07-24] MEDS: ATORVASTATIN 20 MG TAB GT SCH (21:49)
[2020-07-25] VITALS: BP 137/71
[2020-07-25] MEDS: ALBUTEROL SULF 2.5 MG/0.5ML(0.5%) NEB SOLN NEB SCH ×3 (06:05→22:00)
[2020-07-25] MEDS: ACETYLCYSTEINE 10 %(100MG/ML) SOL 4ML NEB SCH ×3 (06:05→22:00)
[2020-07-25] MEDS: Glucerna 1.2 Cal 1Liter BOTTLE GT SCH ×4 (06:14→22:07)
[2020-07-25] MEDS: InsuLIN REG 1unit/0.01ml Soln (100units/ml) SC SCH ×4 (06:54→21:40)
[2020-07-25] MEDS: ACCU-CHEK COMFORT CURVE STRIP VI SCH ×4 (06:54→21:40)
[2020-07-25 08:00] VITALS: BP 130/75
[2020-07-25] MEDS: SODIUM CHLOR 0.9% PF (SALINE LOCK) 10ML VIAL/SYR IV SCH ×2 (09:57→22:00)
[2020-07-25] MEDS: POTASSIUM EFFERVESENT TAB 25 MEQ GT SCH (09:57)
[2020-07-25] MEDS: FLUDROCORTISONE ACETATE 0.1 MG TAB PO SCH ×2 (09:57→21:56)
[2020-07-25] MEDS: ENOXAPARIN SOD 40 MG/0.4 ML SYRINGE SC SCH (09:58)
[2020-07-25] MEDS: FAMOTIDINE 20 MG TAB PO SCH ×2 (09:58→21:56)
[2020-07-25] MEDS: INSULIN LANTUS (GLARGINE) 1 /0.01ml (100units/ml) SC SCH (10:00)
[2020-07-25 16:00] VITALS: BP 143/73
[2020-07-25] MEDS: ATORVASTATIN 20 MG TAB GT SCH (21:55)
[2020-07-26] VITALS: BP 131/68
[2020-07-26] MEDS: Glucerna 1.2 Cal 1Liter BOTTLE GT SCH ×4 (06:00→22:30)
[2020-07-26] MEDS: InsuLIN REG 1unit/0.01ml Soln (100units/ml) SC SCH ×4 (06:18→22:00)
[2020-07-26] MEDS: ACCU-CHEK COMFORT CURVE STRIP VI SCH ×4 (06:18→22:31)
[2020-07-26 08:00] VITALS: BP 143/80
[2020-07-26] MEDS: SODIUM CHLOR 0.9% PF (SALINE LOCK) 10ML VIAL/SYR IV SCH ×2 (10:16→22:30)
[2020-07-26] MEDS: POTASSIUM EFFERVESENT TAB 25 MEQ GT SCH (10:16)
[2020-07-26] MEDS: FLUDROCORTISONE ACETATE 0.1 MG TAB PO SCH ×2 (10:17→22:30)
[2020-07-26] MEDS: ENOXAPARIN SOD 40 MG/0.4 ML SYRINGE SC SCH (10:17)
[2020-07-26] MEDS: FAMOTIDINE 20 MG TAB PO SCH ×2 (10:17→22:30)
[2020-07-26] MEDS: INSULIN LANTUS (GLARGINE) 1 /0.01ml (100units/ml) SC SCH (12:20)
[2020-07-26] MEDS: ACETYLCYSTEINE 10 %(100MG/ML) SOL 4ML NEB SCH ×2 (13:55→23:08)
[2020-07-26 15:56] VITALS: BP 115/67
[2020-07-26] MEDS: ATORVASTATIN 20 MG TAB GT SCH (22:30)
[2020-07-26] MEDS: ALBUTEROL SULF 2.5 MG/0.5ML(0.5%) NEB SOLN NEB SCH (23:08)
[2020-07-27] VITALS: BP 120/70
[2020-07-27] MEDS: InsuLIN REG 1unit/0.01ml Soln (100units/ml) SC SCH ×4 (06:08→23:05)
[2020-07-27] MEDS: Glucerna 1.2 Cal 1Liter BOTTLE GT SCH ×4 (06:09→23:04)
[2020-07-27] MEDS: ACCU-CHEK COMFORT CURVE STRIP VI SCH ×4 (06:09→23:05)
[2020-07-27] MEDS: ALBUTEROL SULF 2.5 MG/0.5ML(0.5%) NEB SOLN NEB SCH ×3 (06:30→21:07)
[2020-07-27] MEDS: ACETYLCYSTEINE 10 %(100MG/ML) SOL 4ML NEB SCH ×3 (06:30→21:07)
[2020-07-27 07:32] LABS: Magnesium 2.1 mg/dL (1.6-2.6); Potassium 3.3 mmol/L (3.5-5.1)
[2020-07-27 08:00] VITALS: BP 119/75
[2020-07-27] MEDS: SODIUM CHLOR 0.9% PF (SALINE LOCK) 10ML VIAL/SYR IV SCH ×2 (09:45→23:04)
[2020-07-27] MEDS: FAMOTIDINE 20 MG TAB PO SCH ×2 (09:45→23:05)
[2020-07-27] MEDS: FLUDROCORTISONE ACETATE 0.1 MG TAB PO SCH ×2 (09:45→23:05)
[2020-07-27] MEDS: POTASSIUM EFFERVESENT TAB 25 MEQ GT SCH (09:45)
[2020-07-27] MEDS: ENOXAPARIN SOD 40 MG/0.4 ML SYRINGE SC SCH (09:46)
[2020-07-27] MEDS: INSULIN LANTUS (GLARGINE) 1 /0.01ml (100units/ml) SC SCH (09:46)
[2020-07-27 15:58] VITALS: BP 120/72
[2020-07-27] MEDS: ATORVASTATIN 20 MG TAB GT SCH (23:04)
[2020-07-28] VITALS: BP_SYST 120; BP_SYST 152; BP_DIAS 76; BP_DIAS 81
[2020-07-28] MEDS: Glucerna 1.2 Cal 1Liter BOTTLE GT SCH ×4 (06:00→22:28)
[2020-07-28] MEDS: InsuLIN REG 1unit/0.01ml Soln (100units/ml) SC SCH ×4 (06:48→22:00)
[2020-07-28] MEDS: ALBUTEROL SULF 2.5 MG/0.5ML(0.5%) NEB SOLN NEB SCH ×3 (06:48→20:01)
[2020-07-28] MEDS: ACETYLCYSTEINE 10 %(100MG/ML) SOL 4ML NEB SCH ×3 (06:48→20:01)
[2020-07-28] MEDS: ACCU-CHEK COMFORT CURVE STRIP VI SCH ×4 (06:51→22:29)
[2020-07-28 08:00] VITALS: BP 133/74
[2020-07-28] MEDS: ENOXAPARIN SOD 40 MG/0.4 ML SYRINGE SC SCH (10:41)
[2020-07-28] MEDS: FLUDROCORTISONE ACETATE 0.1 MG TAB PO SCH ×2 (10:41→22:29)
[2020-07-28] MEDS: SODIUM CHLOR 0.9% PF (SALINE LOCK) 10ML VIAL/SYR IV SCH ×2 (10:41→22:28)
[2020-07-28] MEDS: POTASSIUM EFFERVESENT TAB 25 MEQ GT SCH (10:41)
[2020-07-28] MEDS: FAMOTIDINE 20 MG TAB PO SCH ×2 (10:41→22:29)
[2020-07-28] MEDS: INSULIN LANTUS (GLARGINE) 1 /0.01ml (100units/ml) SC SCH (10:42)
[2020-07-28 16:00] VITALS: BP 132/69
[2020-07-28] MEDS: ATORVASTATIN 20 MG TAB GT SCH (22:28)
[2020-07-29 00:40] VITALS: BP 127/60
[2020-07-29] MEDS: Glucerna 1.2 Cal 1Liter BOTTLE GT SCH ×4 (06:33→21:58)
[2020-07-29] MEDS: InsuLIN REG 1unit/0.01ml Soln (100units/ml) SC SCH ×4 (06:34→22:00)
[2020-07-29] MEDS: ACCU-CHEK COMFORT CURVE STRIP VI SCH ×4 (06:34→22:24)
[2020-07-29] MEDS: ACETYLCYSTEINE 10 %(100MG/ML) SOL 4ML NEB SCH ×2 (07:45→15:42)
[2020-07-29] MEDS: ALBUTEROL SULF 2.5 MG/0.5ML(0.5%) NEB SOLN NEB SCH ×2 (07:45→15:42)
[2020-07-29 08:08] VITALS: BP 122/76
[2020-07-29] MEDS: POTASSIUM EFFERVESENT TAB 25 MEQ GT SCH (09:44)
[2020-07-29] MEDS: SODIUM CHLOR 0.9% PF (SALINE LOCK) 10ML VIAL/SYR IV SCH ×2 (09:45→21:58)
[2020-07-29] MEDS: FLUDROCORTISONE ACETATE 0.1 MG TAB PO SCH ×2 (09:45→22:24)
[2020-07-29] MEDS: FAMOTIDINE 20 MG TAB PO SCH ×2 (09:45→22:24)
[2020-07-29] MEDS: INSULIN LANTUS (GLARGINE) 1 /0.01ml (100units/ml) SC SCH (09:46)
[2020-07-29] MEDS: ENOXAPARIN SOD 40 MG/0.4 ML SYRINGE SC SCH (09:46)
[2020-07-29 16:02] VITALS: BP 140/84
[2020-07-29] MEDS: ATORVASTATIN 20 MG TAB GT SCH (22:24)
[2020-07-30] VITALS: BP 113/68
[2020-07-30] MEDS: Glucerna 1.2 Cal 1Liter BOTTLE GT SCH ×4 (06:25→22:36)
[2020-07-30] MEDS: ACCU-CHEK COMFORT CURVE STRIP VI SCH ×4 (06:25→22:36)
[2020-07-30] MEDS: InsuLIN REG 1unit/0.01ml Soln (100units/ml) SC SCH ×4 (06:25→22:36)
[2020-07-30 08:00] VITALS: BP 126/80
[2020-07-30] MEDS: FLUDROCORTISONE ACETATE 0.1 MG TAB PO SCH ×2 (10:13→22:36)
[2020-07-30] MEDS: SODIUM CHLOR 0.9% PF (SALINE LOCK) 10ML VIAL/SYR IV SCH ×2 (10:13→22:36)
[2020-07-30] MEDS: POTASSIUM EFFERVESENT TAB 25 MEQ GT SCH (10:13)
[2020-07-30] MEDS: FAMOTIDINE 20 MG TAB PO SCH ×2 (10:14→22:36)
[2020-07-30] MEDS: ENOXAPARIN SOD 40 MG/0.4 ML SYRINGE SC SCH (10:14)
[2020-07-30] MEDS: INSULIN LANTUS (GLARGINE) 1 /0.01ml (100units/ml) SC SCH (10:43)
[2020-07-30 16:00] VITALS: BP 128/72
[2020-07-30] MEDS: ACETYLCYSTEINE 10 %(100MG/ML) SOL 4ML NEB SCH (22:21)
[2020-07-30] MEDS: ALBUTEROL SULF 2.5 MG/0.5ML(0.5%) NEB SOLN NEB SCH (22:21)
[2020-07-30] MEDS: ATORVASTATIN 20 MG TAB GT SCH (22:36)
[2020-07-31] VITALS: BP 101/68
[2020-07-31] MEDS: Glucerna 1.2 Cal 1Liter BOTTLE GT SCH ×4 (06:00→22:00)
[2020-07-31] MEDS: InsuLIN REG 1unit/0.01ml Soln (100units/ml) SC SCH ×4 (06:43→22:00)
[2020-07-31] MEDS: ACCU-CHEK COMFORT CURVE STRIP VI SCH ×4 (06:43→22:00)
[2020-07-31] MEDS: ALBUTEROL SULF 2.5 MG/0.5ML(0.5%) NEB SOLN NEB SCH ×2 (07:14→21:56)
[2020-07-31] MEDS: ACETYLCYSTEINE 10 %(100MG/ML) SOL 4ML NEB SCH ×2 (07:14→21:57)
[2020-07-31 08:00] VITALS: BP 125/70
[2020-07-31] MEDS: SODIUM CHLOR 0.9% PF (SALINE LOCK) 10ML VIAL/SYR IV SCH ×2 (10:11→22:00)
[2020-07-31] MEDS: FLUDROCORTISONE ACETATE 0.1 MG TAB PO SCH ×2 (10:34→22:00)
[2020-07-31] MEDS: POTASSIUM EFFERVESENT TAB 25 MEQ GT SCH (10:34)
[2020-07-31] MEDS: FAMOTIDINE 20 MG TAB PO SCH ×2 (10:35→22:00)
[2020-07-31] MEDS: ENOXAPARIN SOD 40 MG/0.4 ML SYRINGE SC SCH (10:35)
[2020-07-31] MEDS: INSULIN LANTUS (GLARGINE) 1 /0.01ml (100units/ml) SC SCH (10:48)
[2020-07-31 16:00] VITALS: BP 122/78
[2020-07-31] MEDS: ATORVASTATIN 20 MG TAB GT SCH (22:00)
[2020-08-01] VITALS: BP 114/70
[2020-08-01] MEDS: Glucerna 1.2 Cal 1Liter BOTTLE GT SCH ×4 (06:00→22:09)
[2020-08-01] MEDS: ACETYLCYSTEINE 10 %(100MG/ML) SOL 4ML NEB SCH (06:15)
[2020-08-01] MEDS: ACCU-CHEK COMFORT CURVE STRIP VI SCH ×4 (06:44→22:05)
[2020-08-01] MEDS: InsuLIN REG 1unit/0.01ml Soln (100units/ml) SC SCH ×4 (06:44→22:00)
[2020-08-01 08:00] VITALS: BP 118/63
[2020-08-01] MEDS: INSULIN LANTUS (GLARGINE) 1 /0.01ml (100units/ml) SC SCH (10:00)
[2020-08-01] MEDS: SODIUM CHLOR 0.9% PF (SALINE LOCK) 10ML VIAL/SYR IV SCH ×2 (10:39→22:09)
[2020-08-01] MEDS: POTASSIUM EFFERVESENT TAB 25 MEQ GT SCH (10:39)
[2020-08-01] MEDS: FLUDROCORTISONE ACETATE 0.1 MG TAB PO SCH ×2 (10:40→22:09)
[2020-08-01] MEDS: FAMOTIDINE 20 MG TAB PO SCH ×2 (10:40→22:09)
[2020-08-01] MEDS: HYOSCYAMINE SULF 0.125 MG ODT TAB PO SCH ×2 (13:01→22:09)
[2020-08-01 16:00] VITALS: BP 127/81
[2020-08-01] MEDS: ATORVASTATIN 20 MG TAB GT SCH (22:09)
[2020-08-02] VITALS: BP 124/79
[2020-08-02] MEDS: HYDROcodone-ACET 5/325MG TAB PO PRN ×3 (00:31→23:18)
[2020-08-02] MEDS: HYOSCYAMINE SULF 0.125 MG ODT TAB PO SCH ×3 (05:31→21:26)
[2020-08-02] MEDS: Glucerna 1.2 Cal 1Liter BOTTLE GT SCH ×4 (05:31→21:26)
[2020-08-02] MEDS: ALBUTEROL SULF 2.5 MG/0.5ML(0.5%) NEB SOLN NEB SCH ×2 (06:15→22:10)
[2020-08-02] MEDS: InsuLIN REG 1unit/0.01ml Soln (100units/ml) SC SCH ×4 (06:28→22:00)
[2020-08-02] MEDS: ACCU-CHEK COMFORT CURVE STRIP VI SCH ×4 (06:41→21:27)
[2020-08-02 08:00] VITALS: BP 107/59
[2020-08-02] MEDS: POTASSIUM EFFERVESENT TAB 25 MEQ GT SCH (09:43)
[2020-08-02] MEDS: SODIUM CHLOR 0.9% PF (SALINE LOCK) 10ML VIAL/SYR IV SCH ×2 (09:43→21:26)
[2020-08-02] MEDS: FAMOTIDINE 20 MG TAB PO SCH ×2 (09:44→21:27)
[2020-08-02] MEDS: FLUDROCORTISONE ACETATE 0.1 MG TAB PO SCH ×2 (09:44→21:26)
[2020-08-02] MEDS: INSULIN LANTUS (GLARGINE) 1 /0.01ml (100units/ml) SC SCH (09:45)
[2020-08-02 16:45] VITALS: BP 133/80
[2020-08-02] MEDS: ATORVASTATIN 20 MG TAB GT SCH (21:26)
[2020-08-02] MEDS: ACETYLCYSTEINE 10 %(100MG/ML) SOL 4ML NEB SCH (22:10)
[2020-08-03] VITALS: BP 107/66
[2020-08-03] MEDS: Glucerna 1.2 Cal 1Liter BOTTLE GT SCH ×4 (05:20→22:28)
[2020-08-03] MEDS: HYOSCYAMINE SULF 0.125 MG ODT TAB PO SCH ×3 (05:20→22:29)
[2020-08-03] MEDS: ACCU-CHEK COMFORT CURVE STRIP VI SCH ×4 (05:40→22:55)
[2020-08-03] MEDS: InsuLIN REG 1unit/0.01ml Soln (100units/ml) SC SCH ×4 (05:40→22:00)
[2020-08-03] MEDS: ALBUTEROL SULF 2.5 MG/0.5ML(0.5%) NEB SOLN NEB SCH ×3 (06:00→22:20)
[2020-08-03] MEDS: ACETYLCYSTEINE 10 %(100MG/ML) SOL 4ML NEB SCH ×3 (06:00→22:20)
[2020-08-03 08:00] VITALS: BP 139/76
[2020-08-03] MEDS ORDERED: INSREGI SC (09:39)
[2020-08-03] MEDS ORDERED: HYOS0.1289 PO (09:39)
[2020-08-03] MEDS ORDERED: INSLANTI SC (09:39)
[2020-08-03] MEDS ORDERED: FLU01T PO (09:39)
[2020-08-03] MEDS ORDERED: [UNRECOGNIZED DRUG - CODE] GT (09:39)
[2020-08-03] MEDS ORDERED: ALB5IS NEB (09:39)
[2020-08-03] MEDS ORDERED: POTA10TA51 PO (09:49)
[2020-08-03] MEDS: INSULIN LANTUS (GLARGINE) 1 /0.01ml (100units/ml) SC SCH (09:50)
[2020-08-03] MEDS: FLUDROCORTISONE ACETATE 0.1 MG TAB PO SCH ×2 (10:03→22:29)
[2020-08-03] MEDS: SODIUM CHLOR 0.9% PF (SALINE LOCK) 10ML VIAL/SYR IV SCH ×2 (10:03→22:00)
[2020-08-03] MEDS: FAMOTIDINE 20 MG TAB PO SCH ×2 (10:03→22:29)
[2020-08-03] MEDS: POTASSIUM EFFERVESENT TAB 25 MEQ GT SCH (10:03)
[2020-08-03 10:18] VITALS: BP 139/76
[2020-08-03 16:00] VITALS: BP 141/84
[2020-08-03] MEDS: HYDROcodone-ACET 5/325MG TAB PO PRN (19:58)
[2020-08-03] MEDS: ATORVASTATIN 20 MG TAB GT SCH (22:28)
[2020-08-04] VITALS: BP 109/72
[2020-08-04] MEDS: Glucerna 1.2 Cal 1Liter BOTTLE GT SCH ×4 (05:10→22:15)
[2020-08-04] MEDS: HYOSCYAMINE SULF 0.125 MG ODT TAB PO SCH ×3 (05:10→22:16)
[2020-08-04] MEDS: ACETYLCYSTEINE 10 %(100MG/ML) SOL 4ML NEB SCH ×3 (05:55→19:58)
[2020-08-04] MEDS: ALBUTEROL SULF 2.5 MG/0.5ML(0.5%) NEB SOLN NEB SCH ×3 (05:55→19:58)
[2020-08-04] MEDS: InsuLIN REG 1unit/0.01ml Soln (100units/ml) SC SCH ×4 (06:07→22:00)
[2020-08-04] MEDS: ACCU-CHEK COMFORT CURVE STRIP VI SCH ×4 (06:09→22:16)
[2020-08-04 08:00] VITALS: BP 111/70
[2020-08-04] MEDS: SODIUM CHLOR 0.9% PF (SALINE LOCK) 10ML VIAL/SYR IV SCH ×2 (10:06→22:00)
[2020-08-04] MEDS: POTASSIUM EFFERVESENT TAB 25 MEQ GT SCH (10:06)
[2020-08-04] MEDS: FAMOTIDINE 20 MG TAB PO SCH ×2 (10:07→22:16)
[2020-08-04] MEDS: FLUDROCORTISONE ACETATE 0.1 MG TAB PO SCH ×2 (10:07→22:16)
[2020-08-04] MEDS: INSULIN LANTUS (GLARGINE) 1 /0.01ml (100units/ml) SC SCH (10:18)
[2020-08-04 15:46] VITALS: BP 116/73
[2020-08-04] MEDS: ATORVASTATIN 20 MG TAB GT SCH (22:15)
[2020-08-05] VITALS: BP 114/68
[2020-08-05] MEDS: Glucerna 1.2 Cal 1Liter BOTTLE GT SCH ×2 (06:00→12:48)
[2020-08-05] MEDS: InsuLIN REG 1unit/0.01ml Soln (100units/ml) SC SCH ×2 (06:57→12:47)
[2020-08-05] MEDS: HYOSCYAMINE SULF 0.125 MG ODT TAB PO SCH (06:58)
[2020-08-05] MEDS: ACCU-CHEK COMFORT CURVE STRIP VI SCH ×2 (06:58→12:39)
[2020-08-05 08:00] VITALS: BP 126/68
[2020-08-05] MEDS: FAMOTIDINE 20 MG TAB PO SCH (11:15)
[2020-08-05] MEDS: POTASSIUM EFFERVESENT TAB 25 MEQ GT SCH (11:15)
[2020-08-05] MEDS: FLUDROCORTISONE ACETATE 0.1 MG TAB PO SCH (11:15)
[2020-08-05] MEDS: SODIUM CHLOR 0.9% PF (SALINE LOCK) 10ML VIAL/SYR IV SCH (11:15)
[2020-08-05] MEDS: INSULIN LANTUS (GLARGINE) 1 /0.01ml (100units/ml) SC SCH (12:40)
== END 2020-08-05 13:30 | disposition hospice, home (50) | DRG 4 ==
LOC: EDBD 10:42 → ER 10:42 → TELE 10:43 → ICU WEST 06-18 06:22 → TELE-WESTW 07-18 12:45
PROVIDERS: ADMIT Internal Medicine; ATTEND Hospitalist
PROC: XW033E5 Introduction of Remdesivir Anti-infective into Peripheral Vein, Percutaneous Approach, New Technology Group 5 (ICD-10-PCS; 2020-06-04)
PROC: 02HV33Z Insertion of Infusion Device into Superior Vena Cava, Percutaneous Approach (ICD-10-PCS; 2020-06-07)
PROC: 0B110F4 Bypass Trachea to Cutaneous with Tracheostomy Device, Open Approach (ICD-10-PCS; 2020-07-06)
PROC: 0DH63UZ Insertion of Feeding Device into Stomach, Percutaneous Approach (ICD-10-PCS; principal; 2020-07-06 10:40)
PROC: 5A1955Z Respiratory Ventilation, Greater than 96 Consecutive Hours (ICD-10-PCS; 2020-07-06 10:40)
PROC: 0BH17EZ Insertion of Endotracheal Airway into Trachea, Via Natural or Artificial Opening (ICD-10-PCS; 2020-07-08)
PROC: 05HC33Z Insertion of Infusion Device into Left Basilic Vein, Percutaneous Approach (ICD-10-PCS; 2020-07-16)
PROC: B54NZZA Ultrasonography of Left Upper Extremity Veins, Guidance (ICD-10-PCS; 2020-07-16)
DX: U07.1 COVID-19 (principal); J12.82 Pneumonia due to coronavirus disease 2019; J96.01 Acute respiratory failure with hypoxia; G93.41 Metabolic encephalopathy; E43 Unspecified severe protein-calorie malnutrition; A41.89 Other specified sepsis; R65.21 Severe sepsis with septic shock; I24.9 Acute ischemic heart disease, unspecified; N39.0 Urinary tract infection, site not specified; E87.0 Hyperosmolality and hypernatremia; N17.9 Acute kidney failure, unspecified; E87.1 Hypo-osmolality and hyponatremia; L03.90 Cellulitis, unspecified; Z99.11 Dependence on respirator [ventilator] status; I10 Essential (primary) hypertension; D64.9 Anemia, unspecified; F41.9 Anxiety disorder, unspecified; F32.9 Major depressive disorder, single episode, unspecified; B96.20 Unspecified Escherichia coli [E. coli] as the cause of diseases classified elsewhere; K21.9 Gastro-esophageal reflux disease without esophagitis; E66.9 Obesity, unspecified; E11.21 Type 2 diabetes mellitus with diabetic nephropathy; E78.5 Hyperlipidemia, unspecified; Z66 Do not resuscitate; K29.70 Gastritis, unspecified, without bleeding; L89.151 Pressure ulcer of sacral region, stage 1; Z68.31 Body mass index [BMI] 31.0-31.9, adult; Z79.899 Other long term (current) drug therapy
CPT/HCPCS: 36415; 36569; 36600; 71045; 80048; 80053; 80076; 81001; 82728; 82805; 82962; 83036; 83605; 83735; 84132; 84484; 85007; 85025; 85027; 85379; 85610; 85730; 86141; 86850; 86900; 86901; 87040; 87070; 87077; 87081; 87086; 87088; 87186; 87205; 87426; 92610; 93005; 93306; 93970; 94002; 94003; 94640; 97110; 97163; 97530; A4605; G0378; J0330; J0696; J1100; J1815; J2001; J2185; J2250; J2405; J2704; J3480; J3490; J7060